=== PATIENT | female | born 1955 | race Caucasian/White ===

== ENCOUNTER → 2024-04-16 | Outpatient (CLI) | payer MEDICARE, SELFPAY ==
--- NOTE | 2024-04-16 14:00 | XR_ITS ---
Examination: Breast ultrasound, unilateral, left Date and time of exam: April 16, 2024 1410 hours INDICATIONS: Breast sonogram April 25, 2023 left breast 4:00 mass 12 x 11 mm 6:00 mass 5 x 5 mm Technique: Real-time mcgowan scale ultrasonographic imaging performed left breast including all 4 quadrants as well as nipple retroareolar and axillary region. Findings: No cystic or solid mass on this study 2.0 cm axillary lymph node IMPRESSION: BI-RADS Category 2: Benign findings
== END | disposition home or self-care (01) ==
PROVIDERS: Referring Provider Physician Assistant; Visit Provider Physician Assistant
DX: N63.0 Unspecified lump in unspecified breast (principal)
CPT/HCPCS: 76641

== ENCOUNTER 2024-12-22 16:21 | Inpatient (IN) | payer MEDICARE, SELFPAY ==
[2024-12-22] VITALS (9 sets, daily range): BP systolic 158–186; BP diastolic 62–78; PULSE 50–78; RESP 12–21; TEMP 36.3–36.8; O2SAT 95–100; BMI 44.9
--- NOTE | 2024-12-22 17:10 | XR_ITS ---
EXAMINATION: AP chest single view TECHNIQUE: AP portable upright chest single view Date and time: December 22, 2024, 1755 hours, comparison March 01, 2020 INDICATIONS: Shortness of breath chest pain today. FINDINGS: Mild CHF Mild enlargement cardiac contour, prominent vascular congestion including central vascular engorgement, bilateral perihilar basilar edema Prominent osteopenia IMPRESSION: Mild CHF
--- NOTE | 2024-12-22 17:12 | PD.EDSOB ---
ED SOB =RME/HPI General Chief Complaint: Shortness of Breath/Dyspnea Stated Complaint: SOB Time Seen by Provider: 12/22/24 17:05 Arrival date/time: 12/22/24 16:21 69-year-old female patient came in for evaluation regarding shortness of breath. Patient's been having worsening shortness of breath, cough, for the last 4 days associated with worsening bilateral lower extremity swelling. Patient also complained of less urination. [place] She is on the brink of having dialysis. Patient denies any chest pain denies any abdominal pain denies any fever. Patient did her Lasix today. Related Data Home Medications ?Medication ?Instructions ?Recorded ?Confirmed amlodipine 5 mg tablet 5 tab PO QDAY High Blood Pressure 07/21/14 06/16/20 ##30 lisinopril 40 mg tablet 40 tab PO QDAY High Blood Pressure 07/21/14 06/16/20 ##30 metformin 1,000 mg tablet 1,000 tab PO BID Diabetes ##60 07/21/14 06/16/20 atenolol 25 mg tablet 25 mg PO QDAY 03/01/20 06/16/20 glipizide 10 mg tablet 10 mg PO BID 03/01/20 06/16/20 sitagliptin phosphate 100 mg 100 mg PO QDAY 03/01/20 06/16/20 tablet (Januvia) hydrochlorothiazide 25 mg tablet 25 mg PO QDAY 03/02/20 06/16/20 magnesium 500 mg tablet 500 mg PO BID 03/02/20 06/16/20 multivitamin 1 tab PO QDAY 03/02/20 06/16/20 L.acidophil-L.casei-B.bifid-B.longum-FOS 1 cap PO QDAY 06/13/20 06/16/20 2 billion cell-50 mg capsule (Probiotic Blend) atorvastatin 80 mg tablet 80 mg PO QPM 06/13/20 06/16/20 cinnamon bark 500 mg capsule 500 mg PO BID 06/13/20 06/16/20 (Cinnamon) loratadine 10 mg tablet 10 mg PO QDAY 06/13/20 06/16/20 Previous Rx's ?Medication ?Instructions ?Recorded aspirin 325 mg tablet 325 mg PO QDAY #30 tabs 06/14/20 Allergies Allergy/AdvReac Type Severity Reaction Status Date / Time No Known Allergies Allergy Verified 12/22/24 16:36 Review of Systems Review of Systems Narrative Review of Systems: Review of system reviewed and within normal limits except mentioned in HPI ED Exam Narrative Physical exam: VITAL SIGNS: Reviewed. GENERAL APPEARANCE: Alert and interactive, follows commands, no acute distress, HEAD AND FACE: Non-traumatic. ENT: PERRL, pink conjunctivitis, eyelid no trauma, Mucous membrane moist. NECK: Supple, nontender, no nuchal rigidity. CHEST: No tenderness, no crepitus, no paradoxical movement, no retractions. LUNGS: Clear, well ventilated, symmetric, no rales, no wheezing, no ronchi, no stridor, good breath sounds bilaterally. HEART: Regular rate, regular rhythm, no murmur, no gallops. ABDOMEN: Soft, positive bowel sounds, nondistended, no guarding, nontender, no rebound, no masses, RECTAL: Deferred. GENITAL: Deferred. NEUROLOGICAL: Gross motor function intact sensory function intact, Appropriate for age. MUSCULOSKELETAL: low back nontender, full range of motion. EXTREMITIES: Bilateral +2 edema lower extremity nontender, full range of motion. SKIN: Color pink, dry, no rash, no lacerations, no abrasions, no contusions. LYMPHATICS: Deferred. Course Quality Measures none Orders Category Date Time Status Bedside COVID-19 Antigen Test NOW Care 12/22/24 17:12 Active Bedside Influenza A&B Antigen Test NOW Care 12/22/24 17:12 Completed COVID-19 Screening Questionnaire NOW Care 12/22/24 19:38 Active Decision to Admit X1 Care 12/22/24 19:38 Active EKG (ED ONLY) *Do not use* NOW Care 12/22/24 17:11 Completed Straight [In and Out Catheter] X1 Care 12/22/24 17:10 Active Consult to Nephrology Stat Cons 12/22/24 18:50 Ordered EKG (ED Only) Stat Exams 12/22/24 17:11 Ordered XR chest 1V Stat Exams 12/22/24 17:10 Completed B-Type Natriuretic Peptide Stat Lab 12/22/24 17:17 Completed CBC Stat Lab 12/22/24 17:17 Completed Comprehensive Metabolic Panel Stat Lab 12/22/24 17:17 Completed Lactic Acid [Lactate (Lactic Acid)] Stat Lab 12/22/24 17:17 Completed Magnesium Stat Lab 12/22/24 17:17 Completed Partial Thromboplastin Time Stat Lab 12/22/24 17:17 Completed Prothrombin Time with INR Stat Lab 12/22/24 17:17 Completed Troponin I Stat Lab 12/22/24 17:17 Completed Urinalysis, C/S if Indicated Stat Lab 12/22/24 19:10 Completed Furosemide Inj [Lasix Inj] Med 12/22/24 18:49 Discontinued 40 mg IVP X1 ONE Vital Signs Vital signs: Vital Signs Temperature 97.4 F 12/22/24 16:23 Pulse Rate 51 L 12/22/24 16:23 Respiratory Rate 19 12/22/24 16:23 Blood Pressure 158/72 H 12/22/24 16:23 Pulse Oximetry (%) 95 12/22/24 16:23 Oxygen Delivery Method Room Air 12/22/24 16:23 Shortness of Breath / Dyspnea [facility] Narrative [facility] Narrative:: 12/22/24 16:21 69-year-old female patient came in for evaluation regarding shortness of breath. Patient's been having worsening shortness of breath, cough, for the last 4 days associated with worsening bilateral lower extremity swelling. Patient also complained of less urination. She is seen by dry cleaning attendant from [place], . She is on the brink of having dialysis. Patient denies any chest pain denies any abdominal pain denies any fever. Patient did her Lasix today. EKG shows sinus bradycardia, ventricular to 52 bpm, no ST segment elevation depression noted. Chest x-ray showed mild CHF. Patient's creatinine today was noted to be 3.2 BUN of 60. It was worse as compared to last time. Patient's sodium was noted to be 126 patient was given IV Lasix. BNP of 465. Case discussed with hospitalist, who admitted the patient. Patient data External records reviewed:: None Clinical information provided by:: patient Social determinants that could affect healthcare access:: none Patient has the following chronic illnesses:: CHF, CKD How is presenting disease/condition affected by chronic disease/condition?: exacerbated by Evaluation data The following diagnostics were reviewed and interpreted by me:: lab results, radiology exam(s) and EKG tracing(s) Lab and/or radiology exams considered but not ordered:: None Interpretation Summary: See MDM Medications / Prescriptions Medications or Prescriptions considered but not ordered:: None Medication administrations:: Medication Administration History Discontinued Medications Furosemide (Furosemide Inj 10 Mg/Ml 4ml Vial) 40 mg IVP X1 ONE Stop: 12/22/24 18:50 Last Admin: 12/22/24 19:12 Dose: 40 mg Documented By: CHRISTINE Pete IV Consultations Consultation(s) initiated? (list below): Yes Consultation #1 (Physician, Specialty, Details): I consulted Dr. Nuno, dry cleaning attendant, discussed the case, advised to give IV Lasix and admit Diagnosis Shortness of Breath Differential Diagnosis: acute exacerbation of chronic obstructive airways disease and congestive heart failure Most likely diagnosis given after review of the tests above:: Acute on chronic kidney disease, fluid overload Admission Indicated Admission indicated?: indicated Admission Request Was there a request for admission?: Yes Admission Attestation Admission request attestation: Discussed case with [Dr. Grier] from Hospitalist service regarding admission. Discussed patients ED course, exam findings, labs, and radiology results. The Hospitalist [agrees] to accept the patient for admission. Disposition Plan Disposition Plan: Admit Discharge Plan Plan Patient Disposition: Admit Acute Care w/in Hospital Discharge Disposition comment: Stable Prescriptions/Referrals Prescriptions/Med Rec: No Action amlodipine 5 mg Tablet 5 tab PO QDAY Qty: 30 metformin 1,000 mg Tablet 1,000 tab PO BID Qty: 60 lisinopril 40 MG tablet 40 tab PO QDAY Qty: 30 atorvastatin 80 mg Tablet 80 mg PO QPM cinnamon bark [Cinnamon] 500 mg Capsule 500 mg PO BID Probiotic Blend 2 billion cell-50 mg Capsule 1 cap PO QDAY loratadine 10 mg Tablet 10 mg PO QDAY aspirin 325 mg Tablet 325 mg PO QDAY Qty: 30 0RF glipizide 10 mg Tablet 10 mg PO BID atenolol 25 mg Tablet 25 mg PO QDAY Januvia 100 mg Tablet 100 mg PO QDAY multivitamin Tablet 1 tab PO QDAY magnesium 500 mg Tablet 500 mg PO BID hydrochlorothiazide 25 mg Tablet 25 mg PO QDAY Problem List Clinical Impression: Acute kidney injury superimposed on chronic kidney disease, Congestive heart failure Patient/Caregiver Discharge Instructions Print Language: Norwegian Stand Alone Forms: Amanda Award Info., Patient Portal Info Letter
[2024-12-22 17:24] LABS: Lactate (Lactic Acid) 1.1 mMol/L (0.4-2.0)
[2024-12-22 17:25] LABS: Basophils # (Auto) 0.1 Thou/mm3 (0.0-0.2); Basophils % (Auto) 1 % (0-2.5); Eosinophils # (Auto) 0.4 Thou/mm3 (0.0-0.5); Eosinophils % (Auto) 3 % (0-10); Hematocrit 31.3 % (36.0-46.0); Hemoglobin 10.9 g/dL (12.0-16.0); Immature Granulocytes Auto 0.11 Thou/mm3 (0.00-0.00); Lymphocytes # (Auto) 1.5 Thou/mm3 (1.0-4.8); Lymphocytes % (Auto) 12 % (10-50); Mean Corpuscular HGB Conc 34.8 g/dl (31.0-37.0); Mean Corpuscular Hemoglobin 28.5 pg (25.0-35.0); Mean Corpuscular Volume 82 fL (80-100); Monocytes # (Auto) 0.7 Thou/mm3 (0.0-0.8); Monocytes % (Auto) 5 % (0-12); Neutrophils # (Auto) 9.6 Thou/mm3 (1.8-7.7); Neutrophils % (Auto) 78 % (37-80); Nucleated Red Blood Cell # 0.00 Thou/mm3 (0.00-0.00); Nucleated Red Blood Cell % 0 /100 WBC (0); Platelet Count 301 Thou/mm3 (140-440); RDW Standard Deviation 43.7 fL (36.4-46.3); Red Blood Count 3.83 Miln/mm3 (4.00-5.20); White Blood Count 12.3 Thou/mm3 (3.6-11.0)
[2024-12-22 17:47] LABS: B-Type Natriuretic Peptide 465 pg/mL (0-100)
[2024-12-22 18:00] LABS: INR 1.0 (0.9-1.3); Partial Thromboplastin Time 33.8 Seconds (22.0-36.0); Prothrombin Time 11.1 Seconds (9.0-12.2)
[2024-12-22 18:41] LABS: Alanine Aminotransferase 14 U/L (10-49); Albumin, Serum 4.3 gm/dL (3.4-4.8); Albumin/Globulin Ratio 1.9 (1.2-2.2); Alkaline Phosphatase 53 U/L (46-116); Anion Gap 9 (7-16); Aspartate Amino Transferase 18 U/L (0-34); BUN/Creatinine Ratio 19 Ratio (12-20); Bilirubin,Total 0.9 mg/dL (0.3-1.2); Blood Urea Nitrogen 60 mg/dL (9-23); Calcium 9.0 mg/dL (8.3-10.6); Calcium (Corrected) 9.0 mg/dL (8.5-10.1); Carbon Dioxide 23.3 mMol/L (20.0-31.0); Chloride 94 mMol/L (98-107); Creatinine (Component) 3.2 mg/dL (0.6-1.3); Estimated Creatinine Clearance 17.6 mL/min (>60); Globulin 2.3 gm/dL (2.3-3.5); Glucose 310 mg/dL (74-106); Magnesium 2.4 mg/dL (1.6-2.6); Osmolality,Calculated 282 (275-295); Potassium 5.1 mMol/L (3.4-5.1); Sodium 126 mMol/L (136-145); Total Protein 6.6 gm/dL (5.7-8.2); Troponin I < 0.020 ng/mL (0.0-0.045); eGFR 15 See Note
[2024-12-22] MEDS: FUROSEMIDE INJ 10 MG/ML 4ML VIAL 40 MG IVP (19:12)
[2024-12-22 19:22] LABS: Collection Type, Urine Clean Catch
[2024-12-22 19:28] LABS: Bacteria,Urine 1+; Bilirubin,Urine Negative (Negative); Blood,Urine 1+ (Negative); Clarity,Urine Clear (Clear/Hazy); Color,Urine Lt-Yellow (Lt Yel-Yel); Culture Indicated,Urine Contaminated; Glucose, Urine 2+ (Negative); Ketones,Urine Negative (Negative); Leukocyte Esterase,Urine Negative (Negative); Nitrite,Urine Negative (Negative); PH,Urine 6.0 (5.0-7.0); Protein,Urine 2+ (Neg - Trace); RBC,Urine 13 /hpf (0-3); Specific Gravity,Urine 1.014 (1.001-1.035); Squamous Epithelial Cell,Urine 23 /hpf (0-5); Urobilinogen,Urine Negative mg/dL (0.0-1.0); WBC,Urine 2 /hpf (0-5)
--- NOTE | 2024-12-22 21:18 | ECHO_ITS ---
Patient Info Name: Farideh Dietrich Age: 69 years : 1955 Gender: Female Ht: 152 cm Wt: 104 kg BSA: 2.17 m2 BP: 135 / 87 mmHg HR: 58 bpm Exam Date: 12/23/2024 8:21 AM Admit Date: 12/22/2024 Site: [facility] Patient Status: I Exam Type: CA echo doppler complete Skilled Nursing Case Manager: Nadya Nixon Ordering Physician: Chace Torre Study Info Indications ?new onset CHF - Primary Location: [id number] Left Ventricular Outflow Tract Name Value Normal LVOT 2D LVOT Diameter 1.8 cm LVOT Doppler LVOT Peak Velocity 112 cm/s LVOT Mean Gradient 3 mmHg LVOT VTI 30 cm LVOT VTI/AV VTI Ratio 0.7 LVOT Stroke Volume 77 ml Pulmonic Valve Name Value Normal PV Doppler PV Peak Velocity 111 cm/s Mitral Valve Name Value Normal MV Doppler MV Decel Candler 1,035 cm/s2 MV PHT 36 ms MV Area (PHT) 6.2 cm2 4.0-5.0 MV Diastolic Function MV E Peak Velocity 128 cm/s MV A Peak Velocity 61 cm/s MV E/A 2.1 MV Annular TDI MV Septal e' Velocity 6.1 cm/s MV E/e' (Septal) 21.0 MV Lateral e' Velocity 8.9 cm/s MV E/e' (Lateral) 14.3 MV e' Average 7.51 cm/s MV E/e' (Average) 17.7 Tricuspid Valve Name Value Normal TV Regurgitation Doppler TR Peak Velocity 341 cm/s Estimated PAP/RSVP RA Pressure 3 mmHg <=5 PA Systolic Pressure 50 mmHg <36 RV Systolic Pressure 50 mmHg <36 TV Annular TDI TV Lateral Alexandra s' Velocity 15.9 cm/s >=9.5 Aortic Valve Name Value Normal AV 2D/MM AV Cusp Sep (MM) 1.1 cm AV Doppler AV Peak Velocity 165 cm/s AV Mean Gradient 5 mmHg AV VTI 41 cm AV Area (Cont Eq VTI) 1.9 cm2 >=3.0 AV Area (Cont Eq Fadi) 1.7 cm2 AV DI (Fadi) 0.68 AV Regurgitation 2D LVOT Area 2.5 cm2 Ventricles Name Value Normal LV Dimensions 2D/MM IVS Diastolic Thickness (2D) 0.7 cm 0.6-0.9 LVID Diastole (2D) 4.4 cm 3.8-5.2 LVIW Diastolic Thickness (2D) 1.0 cm 0.6-0.9 LVID Systole (2D) 2.7 cm 2.2-3.5 LVOT Diameter 1.8 cm LV Mass (2D Cubed) 118.58 g 67.00-162.00 LV Mass Index (2D Cubed) 55 g/m2 43-95 Relative Wall Thickness (2D) 0.45 <=0.42 IVS/LVIW Diastolic Thickness (2D) 0.70 0.00-1.50 LV Fractional Shortening/Ejection Fraction 2D/MM LV Fractional Shortening (2D) 39 % 27-45 LV EF (2D Teichholz) 69 % RV Dimensions 2D/MM TV Lateral Alexandra s' Velocity 15.9 cm/s >=9.5 Atria Name Value Normal LA Dimensions LA Volume (4C A-L) 64 ml LA Volume (BP A-L) 61 ml Left Ventricle Left ventricular chamber dimension is normal. Left ventricular systolic function is normal with visually estimated ejection fraction of 55-60%. There is concentric remodeling noted in the left ventricle. Left ventricular segmental wall motion is normal. There is normal diastolic function in the left ventricle. Right Ventricle Right ventricular chamber dimension is normal. Right ventricular systolic function is normal. Left Atrium Left atrial chamber dimension is mildly enlarged. Right Atrium Right atrial chamber dimension is normal. Aortic Valve The aortic valve is trileaflet. There is no aortic valve sclerosis. There is no aortic valve stenosis with a peak velocity of 165 cm/s, mean gradient of 5 mmHg, and aortic valve area of 1.9 cm2. There is no aortic valve regurgitation. Pulmonic Valve The pulmonic valve is normal. There is no pulmonic valve stenosis. There is no pulmonic regurgitation. Mitral Valve The mitral valve has normal leaflets. There is no mitral valve stenosis. There is trace mitral valve regurgitation. Tricuspid Valve The tricuspid valve leaflets are normal. There is no tricuspid valve stenosis. There is mild tricuspid valve regurgitation. Pulmonary hypertension, estimated pulmonary arterial systolic pressure is 50 mmHg and systemic blood pressure of 135 mmHg in systole. Pericardium/Pleural The pericardium appears normal. There is no pericardial effusion. No pleural effusion visualized. Inferior Vena Cava Normal inferior vena cava with >50% collapse upon inspiration consistent with normal right atrial pressure, 3 mmHg. Aorta The aortic measurements are indexed to age and body surface area. The aortic root at the sinus of Valsalva is not well visualized. The prox ascending aorta is not well visualized. Summary 1. Left ventricle size is normal and systolic function is normal. Estimated ejection fraction is 55-60%. There is normal diastolic function. 2. Right ventricle chamber size is normal and systolic function is normal. 3. There is trace mitral valve regurgitation. 4. There is mild tricuspid valve regurgitation. 5. Normal IVC with estimated RA pressure 3 mmHg. Report Signatures Finalized by Sorin Miller on 12/23/2024 11:54 AM
--- NOTE | 2024-12-22 21:33 | ESHP_ITS ---
<Statement entered by Maribeth Contrears MD - 12/23/24 06:40> Patient is 69 yr female with PMH of CKD stage IV, insulin-dependent type 2 diabetes mellitus, hyperlipidemia, hypertension presenting to ED due to worsening SOB and cough since past few days. She endorses orthopnea, sleeps at angle, worsening LE swelling as well. Has never seen fourdrinier wire weaver in the past. Follows with nephrology Dr. Will in [place] for monitoring of CKD. Has not needed dialysis as of yet. BP 186/78, HR 51, RR 16, O2 sat 97% on 2 L NC. WBC 12.3, hemoglobin 10.9, sodium 126 (corrected 131), potassium 5.1, BUN 60, creatinine 3.2, blood glucose 310, BNP 465, eGFR 15. Repeat UA negative. Chest x-ray showed mild CHF. ED consulted Dr. Nuno who recommended to start IV diuresis. Patient admitted for AHRF due to volume overload in setting of JETHRO on CKD vs new onset CHF. Continue IV diuresis, fluid restrict, strict INOs, echo pending. The patient's management plan was discussed with my attending physician Dr. Wynne. Maribeth Contreras, PGY-2 Documentation for date of: 12/22/24 HPI History of Present Illness History of present illness: 69-year-old female history of CKD stage IV, insulin-dependent type 2 diabetes mellitus, hyperlipidemia, hypertension, presents with worsening shortness of breath and cough over the past 4 days, associated with increased bilateral lower extremity swelling. She has been unable to lie flat and has been sleeping in a recliner for relief. The patient denies chest pain, abdominal pain, or fever. She has no history of asthma but uses an inhaler as needed for bronchitis, which provides minimal relief. Additionally, she reports decreased urine output and burning with urination. She has a history of recurrent urinary tract infections over the past year and has open pressure ulcers on her buttocks, which make urination difficult. The patient lives with her and grandson, with the grandson being sick for over a week. Patient follows up with Dr. Will, a carder blankets in [place], and was last seen 1.5 months ago. She is nearing the need for dialysis. She took her Lasix today but has not noticed significant improvement in her symptoms. ED course: Initial vitals include T 97.4, BP 186/78, HR 51, RR 16, O2 sat 97% on 2 L NC. WBC 12.3, hemoglobin 10.9, sodium 126 (sodium corrected for hyperglycemia 131), potassium 5.1, BUN 60, creatinine 3.2, blood glucose 310, BNP 465, eGFR 15. Repeat UA negative. Chest x-ray showed mild CHF. Past medical history: As stated above. Allergies: NKDA Family history: Noncontributory. Social history: No alcohol use, no smoking, no illicit drug use. Patient admitted for possible new diagnosis of CHF, and JETHRO on CKD. Review of Systems Review of Systems Narrative Review of Systems: All systems reviewed negative unless stated otherwise above. Exam Vital Signs Temp Pulse Resp BP Pulse Ox O2 Del Method O2 Flow Rate 97.5 F 50 L 14 179/62 H 96 Nasal Cannula 3 12/22/24 20:15 12/22/24 20:15 12/22/24 20:15 12/22/24 20:15 12/22/24 20:15 12/22/24 20:15 12/22/24 20:15 Narrative Exam General: AOx3, no acute distress, able to speak full sentences, British-speaking HEENT: NC/AT, mucous membranes moist, bilateral sclera anicteric Cardiovascular: regular rate and rhythm, S1/S2 present, no murmurs appreciated Pulmonary: decreased air entry bilaterally, bilateral wheezes heard Abdominal: soft, non-tender, non-distended, no rebound/guarding, normal bowel sounds present Musculoskeletal: normal ROM, bilateral peripheral pitting edema 2+ up to knees Skin: warm and dry, intact, no rashes, Neuro: CN II-XII intact, no focal deficits Results: Labs 12/23/24 05:25 12/23/24 05:25 Labs: Short CBC 12/22/24 Range/Units 17:17 WBC 12.3 H (3.6-11.0) Thou/mm3 Hgb 10.9 L (12.0-16.0) g/dL Hct 31.3 L (36.0-46.0) % Plt Count 301 (140-440) Thou/mm3 BMP 12/22/24 17:17 Sodium 126 L Potassium 5.1 Chloride 94 L Carbon Dioxide 23.3 BUN 60 H Creatinine 3.2 H Glucose 310 H Calcium 9.0 Cardiac Enzymes 12/22/24 Range/Units 17:17 Troponin I < 0.020 (0.0-0.045) ng/mL Liver Function 12/22/24 Range/Units 17:17 Total Bilirubin 0.9 (0.3-1.2) mg/dL AST 18 (0-34) U/L ALT 14 (10-49) U/L Alkaline Phosphatase 53 (46-116) U/L Albumin 4.3 (3.4-4.8) gm/dL Urine 12/22/24 Range/Units 19:10 Urine Color Lt-Yellow (Lt Yel-Yel) Urine Clarity Clear (Clear/Hazy) Urine pH 6.0 (5.0-7.0) Ur Specific [place] 1.014 (1.001-1.035) Urine Protein 2+ A (Neg - Trace) Urine Glucose (UA) 2+ A (Negative) Quality Measures Quality Measures VTE prophylaxis Advance care planning discussed with:: patient Medications Home Medications and Allergies Home Medications ?Medication ?Instructions ?Recorded ?Confirmed ?Type amlodipine 5 mg tablet 10 mg PO QDAY High Blood Pre ssure 07/21/14 12/23/24 History ##30 atenolol 25 mg tablet 25 mg PO QDAY 03/01/2012/23 History glipizide 10 mg tablet 10 mg PO BID 03/01/20 History sitagliptin phosphate 100 mg 100 mg PO QDAY 03/01/20 1 02/23/24 History tablet (Januvia) atorvastatin 80 mg tablet 80 mg PO QPM 06/13/20 History cinnamon bark 500 mg capsule 500 mg PO BID 06/13/20 History (Cinnamon) cetirizine 10 mg tablet (24Hour 10 mg PO QDAY PRN yudi rgy symptoms 12/23/24 12/23/24 History Allergy) furosemide 40 mg tablet (Lasix) 40 mg PO QAM 12/23/24 12/23/24 History insulin glargine 100 unit/mL (3 20 unit subcut QPM 12/23/24 History mL) subcutaneous pen (Lantus Solostar U-100 Insulin) valsartan 80 mg tablet 80 mg PO PRN 12/23/24 History Allergies Allergy/AdvReac Type Severity Reaction Status Date / Time No Known Allergies Allergy Verified 12/22/24 16:36 Visit Medications Acetaminophen (Acetaminophen 325 Mg Tablet) 650 mg PO Q6H PRN PRN Reason: PAIN 1- 10 OR FEVER > 100.4 Stop: 01/21/25 21:17 Albuterol/Ipratropium (Albuterol/Ipratropium (Duoneb) Rt Robina 3 Ml Nebu) 3 ml INH Q4HRRT YOU Stop: 01/21/25 22:59 Furosemide (Furosemide Inj 10 Mg/Ml Vial 2 Ml) 40 mg IVP TID YOU Stop: 01/22/25 05:59 Heparin Sodium (Porcine) (Heparin Sod Inj 5000 Unit/Ml Vial) 5,000 unit SC Q8HR YOU Stop: 01/05/25 21:59 Ondansetron HCl (Ondansetron Inj 2 Mg/Ml Inj 2 Ml) 4 mg IVP Q6H PRN; Protocol PRN Reason: NAUSEA OR VOMITING Stop: 01/21/25 21:17 Discontinued Medications Albuterol/Ipratropium (Albuterol/Ipratropium (Duoneb) Rt Robina 3 Ml Nebu) 3 ml INH X1 ONE Stop: 12/22/24 21:14 Furosemide (Furosemide Inj 10 Mg/Ml 4ml Vial) 40 mg IVP X1 ONE Stop: 12/22/24 18:50 Last Admin: 12/22/24 19:12 Dose: 40 mg Furosemide (Furosemide Inj 10 Mg/Ml 4ml Vial) 80 mg IVP X1 ONE Stop: 12/22/24 21:10 Assessment & Plan Plan 69-year-old female history of CKD stage IV, insulin-dependent type 2 diabetes mellitus, hyperlipidemia, hypertension, presents with worsening shortness of breath and cough over the past 4 days, associated with increased bilateral lower extremity swelling. Patient admitted for possible new diagnosis of CHF, and JETHRO on CKD. #Acute hypoxemic respiratory failure In the setting of fluid overload, JETHRO on CKD versus new diagnosis of CHF Currently on 2 L of oxygen and saturating at 100% Plan ? Continue Lasix ? DuoNebs scheduled ? Supp O2 as needed #Possible new diagnosis of CHF Worsening shortness of breath and cough over the past 4 days, associated with increased bilateral lower extremity swelling. She has been unable to lie flat and has been sleeping in a recliner for relief. Mentions with being heavy however has not measured herself BNP 465 2+ bilateral lower extremity pitting edema up to knees Chest x-ray shows mild CHF In ED patient received Lasix 120 mg IV Plan ? Echo ordered ? Lasix 40 mg IV twice daily ? Strict ROBBIE's ? Daily weights ? Fluid restriction 1.8 L #Hypertensive emergency #History of hypertension Highest blood pressure reading 186/78 According to patient takes at least 3 blood pressure medications, mentions taking valsartan and atenolol but cannot remember others Plan ? Hydralazine as needed ? Pending med recon, restart BP meds as appropriate ? Hold atenolol, consider alternative #JETHRO on CKD #History of CKD, stage IV DDx prerenal (CHF) versus intrarenal (ATN due to diabetes) versus postrenal (obstruction) Patient sees Dr. Will, a carder blankets in [place], and was last seen 1.5 months ago. She is nearing the need for dialysis, however not there yet Patient is making urine Creatinine on admission 3.2, unsure what the baseline is eGFR 15 Plan ? Nephrology consulted by ED provider, Dr. Nuno, see recs ? Renal ultrasound ordered ? Avoid nephrotoxic agent ? Renally dose medications #Hyponatremia, mild Asymptomatic Na 131 (sodium corrected for hyperglycemia) Plan ? Sodium with a.m. lab #Sinus bradycardia EKG showed sinus bradycardia, rate 51 bpm Patient at home takes atenolol for blood pressure control Plan ? Hold atenolol as not an appropriate medication for the patient #Type 2 diabetes mellitus, [id number] According to patient takes Lantus, Januvia, glipizide Plan ? Pending med recon ? Insulin sliding scale ? A1c level ordered #Hyperlipidemia Mentions taking atorvastatin at home Plan ? 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 Emphasized importance of urgently getting evaluated in the outpatient setting Health Maintenance: Diet: Low carb consistent diet, fluid restriction 1.8 L, low protein, cardiac diet GI prophylaxis: None DVT prophylaxis: Heparin 5000 units SC every 8 hours Antibiotics: None CODE STATUS: DNR Disposition: Telemetry Case discussed with my attending Dr. Wynne, and senior resident, Dr. Diane Torre MD PGY-1 Attending Provider Attestation/Addendum After examination of the patient and review of the clinical data I feel that this patient needs admission to the hospital for further treatment/evaluation. Plan of care discussed with patient and is in agreement. I Stephane Wynne MD, attest that I was physically present for miguel portions of evaluation, and examined patient, labs and imagings and plan of care were discussed with IM residents team, and I agree with the findings and plans documented above.
[2024-12-22] MEDS: ALBUTEROL/IPRATROPIUM (Duoneb) RT SOL 3 ML NEBU INH ×2 (21:35→23:31)
[2024-12-22] MEDS: FUROSEMIDE INJ 10 MG/ML 4ML VIAL 80 MG IVP (21:50)
[2024-12-22 22:00] LABS: Collection Type, Urine Catheter
[2024-12-22 22:12] LABS: Bilirubin,Urine Negative (Negative); Blood,Urine Trace (Negative); Clarity,Urine Clear (Clear/Hazy); Color,Urine Colorless (Lt Yel-Yel); Glucose, Urine Negative (Negative); Ketones,Urine Negative (Negative); Leukocyte Esterase,Urine Negative (Negative); Nitrite,Urine Negative (Negative); PH,Urine 5.5 (5.0-7.0); Protein,Urine 1+ (Neg - Trace); RBC,Urine < 1 /hpf (0-3); Specific Gravity,Urine 1.005 (1.001-1.035); Squamous Epithelial Cell,Urine 1 /hpf (0-5); Urobilinogen,Urine Negative mg/dL (0.0-1.0); WBC,Urine < 1 /hpf (0-5)
[2024-12-22] MEDS: HEPARIN SOD INJ 5000 UNIT/ML VIAL SC (22:12)
[2024-12-23] VITALS (14 sets, daily range): BP systolic 135–162; BP diastolic 52–87; PULSE 52–63; RESP 11–20; TEMP 36.4–36.8; O2SAT 91–98; BMI 48.7; BMI 48.9; BMI 13.0
--- NOTE | 2024-12-23 00:17 | XR_ITS ---
Examination: Retroperitoneal ultrasound, complete Technique: Multiple high resolution grayscale images of the retroperitoneum obtained, including kidneys and bladder. Exam date and time: December 23, 2024, 0123 hours INDICATIONS: Diagnosis acute renal insufficiency on chronic kidney disease on laboratory examination today FINDINGS: Right kidney 7.7 cm renal cortex 1.5 cm Significant renal scar formation Poor visualization of the kidney No diagnostic visualization left kidney Contracted urinary bladder IMPRESSION: Patient's size limits the quality of this study Small right kidney is visualized with significant renal scar formation, no right hydronephrosis
--- NOTE | 2024-12-23 02:17 | PRELIM_ITS ---
Renal/Retroperitoneal ultrasound. December 23, 2024 at 0123 hours Clinical history: JETHRO on CKD. Comparison: None. Findings: The evaluation is markedly limited due to bowel gas and movements as per technologist's note. Right: The right kidney measures 7.7 x 5.9 x 3.7 cm and demonstrates lobular contour with parenchymal scarring. There is no hydronephrosis or renal calculus. Left: The left kidney is not well visualized/demonstrated due to bowel movements as per technologist's note. The urinary bladder is unremarkable. The ureteric jets are not visualized. Prevoid urinary bladder volume measures 55 mL. Impression: Markedly limited evaluation as described. 1. No definitive evidence of right sided hydronephrosis, to the extent visualized. 2. Left kidney not well visualized, due to technical limitation. 3. Other findings as described above. Suggest clinical correlation and follow up accordingly. Report Electronically Signed By: Enmanuel Curtis 12/23/2024 2:16:08 AM [EST]
--- NOTE | 2024-12-23 04:45 | PC.NURSE ---
Attempted to reconcile pt's home medications but pt noted that spouse took the list home. Informed pt that we require the list to update profile and if possible to have spouse bring back to the hospital. Pt noted she would contact her later this morning.
[2024-12-23] MEDS: HEPARIN SOD INJ 5000 UNIT/ML VIAL SC ×3 (05:20→21:50)
[2024-12-23 05:39] LABS: Basophils # (Auto) 0.1 Thou/mm3 (0.0-0.2); Basophils % (Auto) 1 % (0-2.5); Eosinophils # (Auto) 0.5 Thou/mm3 (0.0-0.5); Eosinophils % (Auto) 5 % (0-10); Hematocrit 30.6 % (36.0-46.0); Hemoglobin 10.4 g/dL (12.0-16.0); Immature Granulocytes Auto 0.12 Thou/mm3 (0.00-0.00); Lymphocytes # (Auto) 1.4 Thou/mm3 (1.0-4.8); Lymphocytes % (Auto) 13 % (10-50); Mean Corpuscular HGB Conc 34.0 g/dl (31.0-37.0); Mean Corpuscular Hemoglobin 28.3 pg (25.0-35.0); Mean Corpuscular Volume 83 fL (80-100); Monocytes # (Auto) 0.6 Thou/mm3 (0.0-0.8); Monocytes % (Auto) 6 % (0-12); Neutrophils # (Auto) 7.9 Thou/mm3 (1.8-7.7); Neutrophils % (Auto) 75 % (37-80); Nucleated Red Blood Cell # 0.00 Thou/mm3 (0.00-0.00); Nucleated Red Blood Cell % 0 /100 WBC (0); Platelet Count 293 Thou/mm3 (140-440); RDW Standard Deviation 44.7 fL (36.4-46.3); Red Blood Count 3.68 Miln/mm3 (4.00-5.20); White Blood Count 10.6 Thou/mm3 (3.6-11.0)
[2024-12-23 05:59] LABS: Glucose Estimated Average 163 mg/dL (80-131); Hemoglobin A1C 7.3 % Hgb (4.8-6.0)
[2024-12-23 06:05] LABS: Anion Gap 8 (7-16); BUN/Creatinine Ratio 19 Ratio (12-20); Blood Urea Nitrogen 54 mg/dL (9-23); Calcium 8.8 mg/dL (8.3-10.6); Carbon Dioxide 25.0 mMol/L (20.0-31.0); Chloride 97 mMol/L (98-107); Creatinine (Component) 2.9 mg/dL (0.6-1.3); Estimated Creatinine Clearance 20.4 mL/min (>60); Glucose 311 mg/dL (74-106); Magnesium 2.2 mg/dL (1.6-2.6); Osmolality,Calculated 287 (275-295); Phosphorous 4.7 mg/dL (2.4-5.1); Potassium 4.8 mMol/L (3.4-5.1); Sodium 130 mMol/L (136-145); Thyroid Stimulating Hormone 3.97 uIU/mL (0.55-4.78); eGFR 17 See Note
[2024-12-23] MEDS: INSULIN LISPRO (AdmeLOG) 1 UNIT/0.01 ML UNIT SC ×2 (07:27→11:28)
[2024-12-23] MEDS: ALBUTEROL/IPRATROPIUM (Duoneb) RT SOL 3 ML NEBU INH ×2 (07:54→13:25)
[2024-12-23] MEDS: FUROSEMIDE INJ 10 MG/ML VIAL 2 ML 40 MG IVP (08:12)
[2024-12-23] MEDS: BUMETANIDE INJ 20 MG in CONTAINER,EMPTY 50 ML 1 BAG 8 MG IV (08:58)
--- NOTE | 2024-12-23 10:43 | ESPR_ITS ---
<Statement entered by Jeremías Crowell MD - 12/24/24 18:03> Patient seen and examined at bedside. I discussed and supervised with the manager international physician who took care of this patient. I personally saw and examined the patient. I agree with most of the assessment and plan. Plan of care discussed with attending Dr. Goff. Jeremías Crowell MD PGY-2 Documentation for date of: 12/23/24 Subjective Subjective Interval history: 68-year-old female with past medical history of CKD stage IV, insulin-dependent type 2 diabetes, hyperlipidemia, hypertension presented with worsening shortness of breath, cough, bilateral lower extremity swelling x 4 days.? Admitted for AHRF secondary to volume overload, new onset CHF, JETHRO on CKD. Patient reported trying to go to bathroom and did not make it due to shortness of breath. Admitted orthopnea, sleeping in a recliner.? Denies chest pain, abdominal pain, fever.? Reported decreased urine output and burning with urination, feeling corrosive, thinking it's her glucose that causes that.? History of recurrent UTI over the past year.? Took Lasix prior to admission but no significant improvement. Strawhat Blocking Operator, Yoshi Pinon, following for CKD, potential need for dialysis soon.? Last visit 1.5 months ago. On home Lasix. Never seen patcher. ED: Labs creatinine 3.2 BUN 68 GFR 15 worse compared to last time.? Na 126 K 5.1 BNP 465 BG 310 UA negative Consulted bullet casting operator, tito Gupta to start IV diuretics. Was initially started on Lasix 40mg IV BID then changed to Bumex 20mg gtt. Exam Vital Signs Temp Pulse Resp BP Pulse Ox O2 Del Method O2 Flow Rate 97.9 F 57 L 18 156/77 H 96 Nasal Cannula 4 12/23/24 08:00 12/23/24 08:12 12/23/24 08:00 12/23/24 08:12 12/23/24 08:00 12/23/24 08:00 12/23/24 08:00 Narrative Exam General: AOx3, no acute distress, able to speak full sentences, Mongolian-speaking HEENT: NC/AT, mucous membranes moist, bilateral sclera anicteric Cardiovascular: regular rate and rhythm, S1/S2 present, no murmurs appreciated Pulmonary: minimal bilateral wheezes heard Abdominal: soft, non-tender, non-distended, no rebound/guarding, normal bowel sounds present Musculoskeletal: normal ROM, bilateral peripheral pitting edema 2+ up to knees Skin: warm and dry, intact, no rashes, Neuro: CN II-XII intact, no focal deficits Objective Labs 12/27/24 04:20 12/27/24 04:20 Labs: Laboratory Results - last 24 hr 12/22/24 12/22/24 12/22/24 17:17 19:10 21:55 WBC 12.3 H RBC 3.83 L Hgb 10.9 L Hct 31.3 L MCV 82 MCH 28.5 MCHC 34.8 RDW Std Deviation 43.7 Plt Count 301 Neut % (Auto) 78 Lymph % (Auto) 12 Vance % (Auto) 5 Eos % (Auto) 3 Baso % (Auto) 1 Neut # (Auto) 9.6 H Lymph # (Auto) 1.5 Vance # (Auto) 0.7 Eos # (Auto) 0.4 Baso # (Auto) 0.1 Immature Gran # (Auto) 0.11 H Absolute Nucleated RBC 0.00 Immature Gran % 1 H Nucleated RBC % 0 PT 11.1 INR 1.0 APTT 33.8 Sodium 126 L Potassium 5.1 Chloride 94 L Carbon Dioxide 23.3 Anion Gap 9 BUN 60 H Creatinine 3.2 H Estim Creat Clear Calc 17.6 L eGFR 15 L BUN/Creatinine Ratio [address] Glu mg/dL Hemoglobin A1c Calculated Osmolality 282 Lactic Acid 1.1 Calcium 9.0 Corrected Calcium 9.0 Phosphorus Magnesium 2.4 Total Bilirubin 0.9 AST 18 ALT 14 Alkaline Phosphatase 53 Troponin I < 0.020 B-Natriuretic Peptide 465 H* Total Protein 6.6 Albumin 4.3 Globulin 2.3 Albumin/Globulin Ratio 1.9 TSH Ur Collection Type Clean Catch Catheter Urine Color Lt-Yellow Colorless A Urine Clarity Clear Clear Urine pH 6.0 5.5 Ur Specific [place] 1.014 1.005 Urine Protein 2+ A 1+ A Urine Glucose (UA) 2+ A Negative Urine Ketones Negative Negative Urine Blood 1+ A Trace Urine Nitrite Negative Negative Urine Bilirubin Negative Negative Urine Urobilinogen (Auto) Negative Negative Ur Leukocyte Esterase Negative Negative Urine RBC 13 H < 1 Urine WBC 2 < 1 Ur Squamous Epith Cells 23 H 1 Urine Bacteria 1+ A None Ur Culture Indicated? Contaminated 12/23/24 05:25 WBC 10.6 RBC 3.68 L Hgb 10.4 L Hct 30.6 L MCV 83 MCH 28.3 MCHC 34.0 RDW Std Deviation 44.7 Plt Count 293 Neut % (Auto) 75 Lymph % (Auto) 13 Vance % (Auto) 6 Eos % (Auto) 5 Baso % (Auto) 1 Neut # (Auto) 7.9 H Lymph # (Auto) 1.4 Vance # (Auto) 0.6 Eos # (Auto) 0.5 Baso # (Auto) 0.1 Immature Gran # (Auto) 0.12 H Absolute Nucleated RBC 0.00 Immature Gran % 1 H Nucleated RBC % 0 PT INR APTT Sodium 130 L Potassium 4.8 Chloride 97 L Carbon Dioxide 25.0 Anion Gap 8 BUN 54 H Creatinine 2.9 H Estim Creat Clear Calc 20.4 L eGFR 17 L BUN/Creatinine Ratio 19 Glucose [address] Glu mg/dL 163 H Hemoglobin A1c 7.3 H Calculated Osmolality 287 Lactic Acid Calcium 8.8 Corrected Calcium Phosphorus 4.7 Magnesium 2.2 Total Bilirubin AST ALT Alkaline Phosphatase Troponin I B-Natriuretic Peptide Total Protein Albumin Globulin Albumin/Globulin Ratio TSH 3.97 Ur Collection Type Urine Color Urine Clarity Urine pH Ur Specific [place] Urine Protein Urine Glucose (UA) Urine Ketones Urine Blood Urine Nitrite Urine Bilirubin Urine Urobilinogen (Auto) Ur Leukocyte Esterase Urine RBC Urine WBC Ur Squamous Epith Cells Urine Bacteria Ur Culture Indicated? Quality Measures Quality Measures VTE prophylaxis Advance care planning discussed with:: patient Assessment & Plan Assessment Current Active Medications: Generic Name Dose Route Start Last Admin Trade Name Freq PRN Reason Stop Dose Admin Acetaminophen 650 mg 12/22/24 21:18 Acetaminophen 325 Mg Tablet PO 01/21/25 21:17 Q6H PRN PAIN 1- 10 OR FEVER > 100.4 Albuterol/Ipratropium 3 ml 12/23/24 06:00 Albuterol/Ipratropium (Duoneb) Rt Robina 3 Ml Nebu INH 01/22/25 05:59 TID YOU Dextrose 25 ml 12/22/24 22:20 Dextrose 50%-Water Inj 50 Ml Syringe IV 01/21/25 22:19 Q15MIN PRN BG 50-70 responsive npo pt Dextrose 50 ml 12/22/24 22:20 Dextrose 50%-Water Inj 50 Ml Syringe IV 01/21/25 22:19 Q15MIN PRN BG <50 OR BG <70 & pt unresponsive Glucagon 1 mg 12/22/24 22:20 Glucagon Inj 1 Mg Vial IM Q15MIN PRN BG <70, and no IV access Heparin Sodium (Porcine) 5,000 unit 12/22/24 22:00 12/23/24 05:20 Heparin Sod Inj 5000 Unit/Ml Vial SC 01/05/25 21:59 5,000 unit Q8HR YOU Administration Hydralazine HCl 10 mg 12/22/24 23:59 Hydralazine Inj 20 Mg/Ml Vial IVP 01/21/25 23:58 Q4H PRN SBP >180 or DBP >120 Bumetanide 20 mg/ IV 80 mls @ 8 mls/hr 12/23/24 08:01 12/23/24 08:58 Miscellaneous Supplies IV 12/23/24 18:00 2 mg/hr .Q10H YOU 8 mls/hr 2 MG/HR Administration Insulin Degludec 20 unit 12/24/24 09:00 Insulin Degludec 5 Unit/0.05 Ml (Per 5 Units) DC 01/23/25 08:59 QDAY [facility] Insulin Human Lispro 0 unit 12/23/24 10:35 Insulin Lispro (Admelog) 1 Unit/0.01 Ml Unit DC 01/22/25 07:29 [facility] Protocol Insulin Human Lispro 7 unit 12/23/24 11:30 Insulin Lispro (Admelog) 1 Unit/0.01 Ml Unit DC 01/22/25 11:29 AC [facility] Ondansetron HCl 4 mg 12/22/24 21:18 Ondansetron Inj 2 Mg/Ml Inj 2 Ml IVP 01/21/25 21:17 Q6H PRN NAUSEA OR VOMITING Protocol Plan 69-year-old female history of CKD stage IV, insulin-dependent type 2 diabetes mellitus, hyperlipidemia, hypertension, presents with worsening shortness of breath and cough over the past 4 days, associated with increased bilateral lower extremity swelling. Patient admitted for possible new diagnosis of CHF, and JETHRO on CKD. #Acute hypoxemic respiratory failure, likely secondary to volume overload In the setting of fluid overload, JETHRO on CKD versus new diagnosis of CHF. Currently on 4 L of oxygen and saturating at 93%. CXR showed mild CHF. Bilateral peripheral pitting edema 2+ up to knees Echo showed LVEF 55-60%. Renal ultrasound showed significant right renal scar, no hydronephrosis Plan ? Discontinue Lasix ? Continue Bumex 20mg gtt ? Consult Strawhat Blocking Operator, Dr. Nuno, appreciate ongoing recs ? DuoNebs PRN ? Supp O2 as needed #Possible new diagnosis of CHF Worsening shortness of breath and cough over the past 4 days, associated with increased bilateral lower extremity swelling. She has been unable to lie flat and has been sleeping in a recliner for relief. Mentions with being heavy however has not measured herself. BNP 465 2+ bilateral lower extremity pitting edema up to knees. Chest x-ray shows mild CHF. In ED patient received Lasix 120 mg IV. Echo showed LVEF 55-60%. Renal ultrasound showed significant right renal scar, no hydronephrosis Plan ? Discontinue Lasix ? Continue Bumex 20mg gtt ? Consult Strawhat Blocking Operator, Dr. Nuno, appreciate ongoing recs ? Strict ROBBIE's ? Daily weights ? Fluid restriction 1.8 L ? Consult Jazz Singer, Dr. Miller, appreciate recs #Hypertensive urgency #History of hypertension Highest blood pressure reading 186/78. According to patient takes at least 3 blood pressure medications, mentions taking valsartan and atenolol but cannot remember others. Pending official med recs. 12/23 BP 135/87 Plan ? Hydralazine as needed ? Pending med recon, restart BP meds as appropriate #JETHRO on CKD - improving #History of CKD, stage IV DDx prerenal (CHF) versus intrarenal (ATN due to diabetes) versus postrenal (obstruction) Patient sees Dr. Will, a bullet casting operator in [place], and was last seen 1.5 months ago. She is nearing the need for dialysis, however not there yet. Patient is making urine Creatinine on admission 3.2, unsure what the baseline is. eGFR 15 Echo showed LVEF 55-60%. Renal ultrasound showed significant right renal scar, no hydronephrosis 12/23: BUN and creatinine improving with fluid Plan ? Nephrology consulted by ED provider, Dr. Nuno, see recs ? Avoid nephrotoxic agent ? Renally dose medications #Hyponatremia, mild - improving Asymptomatic Na 131 (sodium corrected for hyperglycemia) Plan ? Sodium with a.m. lab #Sinus bradycardia EKG showed sinus bradycardia, rate 51 bpm Patient at home takes atenolol for blood pressure control Plan ? Hold atenolol as not an appropriate medication for the patient #Type 2 diabetes mellitus, [id number] According to patient takes Lantus, Januvia, glipizide.? A1c 7.3.? Blood glucose on admission 310 12/23: Blood glucose 311, receive 3 units insulin lispro at 7:30 AM Plan ? Pending med recon ? Insulin sliding scale #Hyperlipidemia Mentions taking atorvastatin at home Plan ? 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 Emphasized importance of urgently getting evaluated in the outpatient setting Health Maintenance: Diet: Low carb consistent diet, fluid restriction 1.8 L, low protein, cardiac diet GI prophylaxis: None DVT prophylaxis: Heparin 5000 units SC every 8 hours Antibiotics: None CODE STATUS: DNR Disposition: Telemetry Assessment and plan discussed with my attending physician Dr. Goff and Dr. Crowell (PGY-2). Dr. Oropeza (PGY-1) ? residential real estate appraiser Attending Provider Attestation/Addendum I have seen and examined the patient. I was physically present for the miguel portions of the services provided including history, physical exam, diagnosis, treatment plans and orders. I agree with assessment and plan of care as documented by residents. Even though this this note was carefully revised there may still be minor errors in register in chancery due to voice recognition software. Heather Goff MD
[2024-12-23] MEDS: INSULIN LISPRO (AdmeLOG) 1 UNIT/0.01 ML UNIT 7 UNIT SC ×2 (11:27→16:42)
[2024-12-23] MEDS: INSULIN DEGLUDEC 5 UNIT/0.05 ML (PER 5 UNITS) 20 UNIT SC (11:28)
--- NOTE | 2024-12-23 13:59 | PD.RESCONSUL ---
HPI Data of Consult Consult date: 12/23/24 Requesting Physician: Heather Goff MD Admitting Provider: Stephane Wynne MD Attending Provider: Heather Goff MD Primary Care Provider: Physician No Primary/Family Consult Narrative Reason for consult: JETHRO on CKDIV History of present illness: 69-year-old female history of CKD stage IV, insulin-dependent type 2 diabetes mellitus, hyperlipidemia, hypertension, presents with worsening shortness of breath and cough over the past 4 days, associated with increased bilateral lower extremity swelling. She has been unable to lie flat and has been sleeping in a recliner for relief. The patient denies chest pain, abdominal pain, or fever. She has no history of asthma but uses an inhaler as needed for bronchitis, which provides minimal relief. Additionally, she reports decreased urine output and burning with urination. She has a history of recurrent urinary tract infections over the past year and has open pressure ulcers on her buttocks, which make urination difficult. The patient lives with her and grandson, with the grandson being sick for over a week. Patient follows up with Dr. Will, a oracle financials developer in [place], and was last seen 1.5 months ago. She is nearing the need for dialysis. She took her Lasix today but has not noticed significant improvement in her symptoms. 12/23/24: Patient seen and examined at bedside. Patient reports discussion with oracle financials developer regarding possible dialysis. Has little support at home with busy grandchildren and with dementia and may have difficulty travelling to HD 3x/wk. At baseline walks using nearby structures to grab onto, has walker but does not use. Patient reports increased leg swelling, shortness of breath and abdominal distension prior to admission with decreased urine output and dysuria. Plan for Bumex drip 2 mg/hr for 10 hrs. Strict I&Os with coulter as burning on urination likely 2/2 minor buttock wounds as UA clean. Likely progressive CKD from HTN and DM to possible ESRD vs cardiorenal. cc:: cc: Heather Goff MD Review of Systems Review of Systems Systems Reviewed: All systems reviewed, normal except as documented Exam Vital Signs Temp Pulse Resp BP Pulse Ox O2 Del Method O2 Flow Rate 97.6 F 57 L 20 151/69 H 98 Nasal Cannula 2 12/23/24 11:47 12/23/24 13:25 12/23/24 13:25 12/23/24 11:47 12/23/24 13:25 12/23/24 11:47 12/23/24 13:25 Narrative Exam GENERAL: AOx3, no acute distress, sitting upright comfortably eating breakfast HEENT: mucous membranes moist, bilateral sclera anicteric CARDIOVASCULAR: regular rate and rhythm, S1/S2 present, no murmurs appreciated PULMONARY: mildly decreased breath sounds bilaterally ABDOMINAL: soft, non-tender, distended, edematous, no rebound/guarding, bowel sounds present EXTREMITIES: 3+ BLE pitting edema SKIN: warm and dry NEURO: CN II-XII grossly intact, no focal deficits, alert, following commands Results Labs 12/24/24 05:52 12/24/24 05:52 Labs: Short CBC 12/22/24 12/23/24 Range/Units 17:17 05:25 WBC 12.3 H 10.6 (3.6-11.0) Thou/mm3 Hgb 10.9 L 10.4 L (12.0-16.0) g/dL Hct 31.3 L 30.6 L (36.0-46.0) % Plt Count 301 293 (140-440) Thou/mm3 BMP 12/22/24 12/23/24 17:17 05:25 Sodium 126 L 130 L Potassium 5.1 4.8 Chloride 94 L 97 L Carbon Dioxide 23.3 25.0 BUN 60 H 54 H Creatinine 3.2 H 2.9 H Glucose 310 H 311 H Calcium 9.0 8.8 Cardiac Enzymes 12/22/24 Range/Units 17:17 Troponin I < 0.020 (0.0-0.045) ng/mL Liver Function 12/22/24 Range/Units 17:17 Total Bilirubin 0.9 (0.3-1.2) mg/dL AST 18 (0-34) U/L ALT 14 (10-49) U/L Alkaline Phosphatase 53 (46-116) U/L Albumin 4.3 (3.4-4.8) gm/dL Urine 12/22/24 12/22/24 Range/Units 19:10 21:55 Urine Color Lt-Yellow Colorless A (Lt Yel-Yel) Urine Clarity Clear Clear (Clear/Hazy) Urine pH 6.0 5.5 (5.0-7.0) Ur Specific [place] 1.014 1.005 (1.001-1.035) Urine Protein 2+ A 1+ A (Neg - Trace) Urine Glucose (UA) 2+ A Negative (Negative) Quality Measures Quality Measures VTE prophylaxis Advance care planning discussed with:: patient Medications Home Medications and Allergies Home Medications ?Medication ?Instructions ?Recorded ?Confirmed ?Type amlodipine 5 mg tablet 10 mg PO QDAY High Blood Pressure 07/21/14 12/23/24 History ##30 atenolol 25 mg tablet 25 mg PO QDAY 03/01/20 12/23/24 History glipizide 10 mg tablet 10 mg PO BID 03/01/20 12/23/24 History sitagliptin phosphate 100 mg 100 mg PO QDAY 03/01/20 12/23/24 History tablet (Januvia) atorvastatin 80 mg tablet 80 mg PO QPM 06/13/20 12/23/24 History cinnamon bark 500 mg capsule 500 mg PO BID 06/13/20 12/23/24 History (Cinnamon) cetirizine 10 mg tablet (24Hour 10 mg PO QDAY PRN allergy symptoms 12/23/24 12/23/24 History Allergy) furosemide 40 mg tablet (Lasix) 40 mg PO QAM 12/23/24 12/23/24 History insulin glargine 100 unit/mL (3 20 unit subcut QPM 12/23/24 12/23/24 History mL) subcutaneous pen (Lantus Solostar U-100 Insulin) valsartan 80 mg tablet 80 mg PO PRN 12/23/24 12/23/24 History Allergies Allergy/AdvReac Type Severity Reaction Status Date / Time No Known Allergies Allergy Verified 12/22/24 16:36 Visit Medications Acetaminophen (Acetaminophen 325 Mg Tablet) 650 mg PO Q6H PRN PRN Reason: PAIN 1- 10 OR FEVER > 100.4 Stop: 01/21/25 21:17 Albuterol/Ipratropium (Albuterol/Ipratropium (Duoneb) Rt Robina 3 Ml Nebu) 3 ml INH TID YOU Stop: 01/22/25 05:59 Last Admin: 12/23/24 13:25 Dose: 3 ml Dextrose (Dextrose 50%-Water Inj 50 Ml Syringe) 25 ml IV Q15MIN PRN PRN Reason: BG 50-70 responsive npo pt Stop: 01/21/25 22:19 Dextrose (Dextrose 50%-Water Inj 50 Ml Syringe) 50 ml IV Q15MIN PRN PRN Reason: BG <50 OR BG <70 & pt unresponsive Stop: 01/21/25 22:19 Glucagon (Glucagon Inj 1 Mg Vial) 1 mg IM Q15MIN PRN PRN Reason: BG <70, and no IV access Heparin Sodium (Porcine) (Heparin Sod Inj 5000 Unit/Ml Vial) 5,000 unit SC Q8HR YOU Stop: 01/05/25 21:59 Last Admin: 12/23/24 13:53 Dose: 5,000 unit Hydralazine HCl (Hydralazine Inj 20 Mg/Ml Vial) 10 mg IVP Q4H PRN PRN Reason: SBP >180 or DBP >120 Stop: 01/21/25 23:58 Bumetanide 20 mg/ IV (Miscellaneous Supplies) 80 mls @ 8 mls/hr IV .Q10H YOU Stop: 12/23/24 18:00 Last Admin: 12/23/24 08:58 Dose: 2 mg/hr, 8 mls/hr Insulin Degludec (Insulin Degludec 5 Unit/0.05 Ml (Per 5 Units)) 20 unit SC QDAY [facility] Stop: 01/23/25 08:59 Insulin Human Lispro (Insulin Lispro (Admelog) 1 Unit/0.01 Ml Unit) 0 unit SC ACHS [facility]; Protocol Stop: 01/22/25 07:29 Last Admin: 12/23/24 11:28 Dose: 4 unit Insulin Human Lispro (Insulin Lispro (Admelog) 1 Unit/0.01 Ml Unit) 7 unit SC AC [facility] Stop: 01/22/25 11:29 Last Admin: 12/23/24 11:27 Dose: 7 unit Ondansetron HCl (Ondansetron Inj 2 Mg/Ml Inj 2 Ml) 4 mg IVP Q6H PRN; Protocol PRN Reason: NAUSEA OR VOMITING Stop: 01/21/25 21:17 Discontinued Medications Albuterol/Ipratropium (Albuterol/Ipratropium (Duoneb) Rt Robina 3 Ml Nebu) 3 ml INH X1 ONE Stop: 12/22/24 21:14 Last Admin: 12/22/24 21:35 Dose: 3 ml Albuterol/Ipratropium (Albuterol/Ipratropium (Duoneb) Rt Robina 3 Ml Nebu) 3 ml INH Q4HRRT YOU Stop: 01/21/25 22:59 Last Admin: 12/22/24 23:31 Dose: 3 ml Furosemide (Furosemide Inj 10 Mg/Ml 4ml Vial) 40 mg IVP X1 ONE Stop: 12/22/24 18:50 Last Admin: 12/22/24 19:12 Dose: 40 mg Furosemide (Furosemide Inj 10 Mg/Ml 4ml Vial) 80 mg IVP X1 ONE Stop: 12/22/24 21:10 Last Admin: 12/22/24 21:50 Dose: 80 mg Furosemide (Furosemide Inj 10 Mg/Ml Vial 2 Ml) 40 mg IVP TID YOU Stop: 01/22/25 05:59 Furosemide (Furosemide Inj 10 Mg/Ml Vial 2 Ml) 40 mg IVP BID YOU Stop: 01/22/25 08:59 Last Admin: 12/23/24 08:12 Dose: 40 mg Influenza Virus Vaccine Quadrival (Influenza Virus 0.5 Ml Syringe ) 0.5 ml IMi .ONCE ONE Stop: 12/23/24 04:26 Insulin Degludec (Insulin Degludec 5 Unit/0.05 Ml (Per 5 Units)) 20 unit SC X1 ONE Stop: 12/23/24 10:35 Last Admin: 12/23/24 11:28 Dose: 20 unit Insulin Human Lispro (Insulin Lispro (Admelog) 1 Unit/0.01 Ml Unit) 0 unit SC AC YOU; Protocol Stop: 01/22/25 07:29 Insulin Human Lispro (Insulin Lispro (Admelog) 1 Unit/0.01 Ml Unit) 0 unit SC ACHS YOU; Protocol Stop: 01/22/25 07:29 Last Admin: 12/23/24 07:27 Dose: 3 unit Assessment & Plan Plan Farideh Dietrich 69F pmhx significant for CKD stage IV, IDDM2, HTN, and HLD presents to [facility] ED 12/22 for worsening shortness of breath and significant edema, admitted for volume overload 2/2 HFpEF vs kidney failure. Nephrology consulted for JETHRO on CKDIV. #JETHRO on CKDIV Presented with anascarca without improvement on home PO Lasix. On admission Cr 3.2 and GFR 15. Patient sees Dr[address] Will and discussed possibly initiating dialysis soon. Unknown baseline Cr but last told GFR [address] Will. Renal US limited study due to body habitus. Ddx: Likely progression of CKD to ESRD 2/2 longstandig hx of DM2 and HTN vs cardiorenal (HFpEF) Plan: - Bumex drip 2 mg/hr for 10 hrs - Monitor for kidney improvement, will contact Dr. Will - Strict I&Os, daily weights, 1.8L fluid restriction - Avoid nephrotoxins and renally dose #Hyponatremia Likely 2/2 hypervolemia and dilution vs CKD. 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 Plan of care discussed with attending Dr. Nuno. Yolette Lan DO PGY-1 Internal Medicine Attending Provider Attestation/Addendum patient seen and examined with resident physician Dr. Lan. Note reviewed, agree with findings and recommendations. Patient currently seen in telemetry. CKD IV patient of Dr. Will. Significant anasarca noted. Has has been diabetic for many years along with hypertension and cholesterol problems. Shortness of breath noted. Will give her Bumex drip and monitor closely her renal function. Did explain that if there is no improvement in renal function or if the patient continues to be with severe anasarca-she might need a temporary dialysis. Patient agreed. Thank you Heather for allowing me to participate in the care of Ms. Gong
--- NOTE | 2024-12-23 14:11 | ESCONSULT_ITS ---
<Statement entered by Sorin Miller MD - 12/25/24 18:17> I personally examined evaluated the patient and counseled patient report all essential components are reviewed evaluated patient with resident physician PGY 1 patient clearly has acute and chronic kidney disease and renal failure with hypertension and obesity signs and symptoms of acute decompensated heart failure with volume overload compounded by renal failure patient appears to have heart failure preserved ejection fraction echocardiogram is reviewed appears to have normal ejection fraction. Agree with IV Bumex therapy continue he is patient close monitoring if renal function worsens and she does not increase urine output may require dialysis evaluated patient with resident physician will continue to monitor the patient closely while in telemetry. HPI Data of Consult Requesting Physician: Heather Goff MD Admitting Provider: Stephane Wynne MD Attending Provider: Heather Goff MD Primary Care Provider: Physician No Primary/Family Consult Narrative Reason for consult: Potential New Onset CHF History of present illness: 69-year-old female history of CKD stage IV, insulin-dependent type 2 diabetes mellitus, hyperlipidemia, hypertension, presents with worsening shortness of breath and cough over the past 4 days, associated with increased bilateral lower extremity swelling. She has been unable to lie flat and has been sleeping in a recliner for relief. Patient denies chest pain, abdominal pain, or fever. She has no history of asthma but uses an inhaler as needed for bronchitis, which provides minimal relief. Additionally, she reports decreased urine output and burning with urination. She has a history of recurrent urinary tract infections over the past year and has open pressure ulcers on her buttocks, which make urination difficult. The patient lives with her and grandson, with the grandson being sick for over a week. Patient follows up with Dr. Will, a pathology laboratory director in [place], and was last seen 1.5 months ago. She is nearing the need for dialysis. She took her Lasix today but has not noticed significant improvement in her symptoms. Past medical history: As above. Allergies: NKDA Family history: Noncontributory. Social history: No alcohol use, no smoking, no illicit drug use. cc:: cc: Heather Goff MD Review of Systems Review of Systems Narrative Review of Systems: General: Denies fevers or chills HEENT: Denies congestion or sore throat Heart: Denies chest pain or palpitations Lungs: Endorses shortness of breath Abdomen: Denies diarrhea, nausea or vomiting, constipation, BRBPR, melena Genitourinary: Endorses frequency, urgency, dysuria, Musculoskeletal: Endorses bilateral lower extremity swelling Neurology: Denies numbness, tingling ROS otherwise negative except what is mentioned above. Exam Vital Signs Temp Pulse Resp BP Pulse Ox O2 Del Method O2 Flow Rate 97.6 F 57 L 20 151/69 H 98 Nasal Cannula 2 12/23/24 11:47 12/23/24 13:25 12/23/24 13:12/23/24 11:47 12/23/24 13:12/23/24 11:47 12/23/24 13: Narrative Exam General: A/O x3, no acute distress, well-nourished, well-developed, coulter catheter in Eyes: PERRL, EOMI. Anicteric, vision grossly intact. Ears: No ear pain, no ear discharge, Hearing grossly intact. Nose: No nasal discharge. Mouth/Throat: Moist mucous membranes, no redness, no lesions. Neck: Neck supple, non-tender, no cervical lymphadenopathy. Lungs: swlight bilateral wheezing, No accessory muscle use. Cardio: Normal S1/S2, regular rhythm, no murmurs, no JVD or carotid bruits. Abdomen: Soft, non-tender, no palpable masses, peristalsis present, no guarding or rebound. Extremities: Symmetrical, no significant deformities, peripheral edema to mid- cramer bilaterally , non-tender, peripheral pulses present. Skin: No rashes, no lesions, warm to touch. Neuro: No focal neurological deficits. Psych: Cooperative, appropriate mood and effect. Results Labs 12/23/24 05:12/23/24 05:25 Labs: Short CBC 12/22/24 12/23/24 Range/Units 17:17 05:25 WBC 12.3 H 10.6 (3.6-11.0) Thou/mm3 Hgb 10.9 L 10.4 L (12.0-16.0) g/dL Hct 31.3 L 30.6 L (36.0-46.0) % Plt Count 301 293 (140-440) Thou/mm3 BMP 12/22/24 12/23/24 17:17 05:25 Sodium 126 L 130 L Potassium 5.1 4.8 Chloride 94 L 97 L Carbon Dioxide 23.3 25.0 BUN 60 H 54 H Creatinine 3.2 H 2.9 H Glucose 310 H 311 H Calcium 9.0 8.8 Cardiac Enzymes 12/22/24 Range/Units 17:17 Troponin I < 0.020 (0.0-0.045) ng/mL Liver Function 12/22/24 Range/Units 17:17 Total Bilirubin 0.9 (0.3-1.2) mg/dL AST 18 (0-34) U/L ALT 14 (10-49) U/L Alkaline Phosphatase 53 (46-116) U/L Albumin 4.3 (3.4-4.8) gm/dL Urine 12/22/24 12/22/24 Range/Units 19:10 21:55 Urine Color Lt-Yellow Colorless A (Lt Yel-Yel) Urine Clarity Clear Clear (Clear/Hazy) Urine pH 6.0 5.5 (5.0-7.0) Ur Specific [place] 1.014 1.005 (1.001-1.035) Urine Protein 2+ A 1+ A (Neg - Trace) Urine Glucose (UA) 2+ A Negative (Negative) Quality Measures Quality Measures VTE prophylaxis Advance care planning discussed with:: other Medications Home Medications and Allergies Home Medications ?Medication ?Instructions ?Recorded ?Confirmed ?Type amlodipine 5 mg tablet 10 mg PO QDAY High Blood Pre ssure 07/21/14 12/23/24 History ##30 atenolol 25 mg tablet 25 mg PO QDAY 03/01/2012/23 History glipizide 10 mg tablet 10 mg PO BID 03/01/20 History sitagliptin phosphate 100 mg 100 mg PO QDAY 03/01/20 1 02/23/24 History tablet (Januvia) atorvastatin 80 mg tablet 80 mg PO QPM 06/13/20 History cinnamon bark 500 mg capsule 500 mg PO BID 06/13/20 History (Cinnamon) cetirizine 10 mg tablet (24Hour 10 mg PO QDAY PRN yudi rgy symptoms 12/23/24 12/23/24 History Allergy) furosemide 40 mg tablet (Lasix) 40 mg PO QAM 12/23/24 12/23/24 History insulin glargine 100 unit/mL (3 20 unit subcut QPM 12/23/24 History mL) subcutaneous pen (Lantus Solostar U-100 Insulin) valsartan 80 mg tablet 80 mg PO PRN 12/23/24 History Allergies Allergy/AdvReac Type Severity Reaction Status Date / Time No Known Allergies Allergy Verified 12/22/24 16:36 Visit Medications Acetaminophen (Acetaminophen 325 Mg Tablet) 650 mg PO Q6H PRN PRN Reason: PAIN 1- 10 OR FEVER > 100.4 Stop: 01/21/25 21:17 Albuterol/Ipratropium (Albuterol/Ipratropium (Duoneb) Rt Robina 3 Ml Nebu) 3 ml INH TID PRN PRN Reason: SHORTNESS OF BREATH Stop: 01/22/25 05:59 Dextrose (Dextrose 50%-Water Inj 50 Ml Syringe) 25 ml IV Q15MIN PRN PRN Reason: BG 50-70 responsive npo pt Stop: 01/21/25 22:19 Dextrose (Dextrose 50%-Water Inj 50 Ml Syringe) 50 ml IV Q15MIN PRN PRN Reason: BG <50 OR BG <70 & pt unresponsive Stop: 01/21/25 22:19 Glucagon (Glucagon Inj 1 Mg Vial) 1 mg IM Q15MIN PRN PRN Reason: BG <70, and no IV access Heparin Sodium (Porcine) (Heparin Sod Inj 5000 Unit/Ml Vial) 5,000 unit SC Q8HR [facility] Stop: 01/05/25 21:59 Last Admin: 12/23/24 13:53 Dose: 5,000 unit Hydralazine HCl (Hydralazine Inj 20 Mg/Ml Vial) 10 mg IVP Q4H PRN PRN Reason: SBP >180 or DBP >120 Stop: 01/21/25 23:58 Bumetanide 20 mg/ IV (Miscellaneous Supplies) 80 mls @ 8 mls/hr IV .Q10H [facility] Stop: 12/23/24 18:00 Last Admin: 12/23/24 08:58 Dose: 2 mg/hr, 8 mls/hr Insulin Degludec (Insulin Degludec 5 Unit/0.05 Ml (Per 5 Units)) 20 unit SC QDAY [facility] Stop: 01/23/25 08:59 Insulin Human Lispro (Insulin Lispro (Admelog) 1 Unit/0.01 Ml Unit) 0 unit SC ACHS [facility]; Protocol Stop: 01/22/25 07:29 Last Admin: 12/23/24 11:28 Dose: 4 unit Insulin Human Lispro (Insulin Lispro (Admelog) 1 Unit/0.01 Ml Unit) 7 unit SC AC [facility] Stop: 01/22/25 11:29 Last Admin: 12/23/24 11:27 Dose: 7 unit Ondansetron HCl (Ondansetron Inj 2 Mg/Ml Inj 2 Ml) 4 mg IVP Q6H PRN; Protocol PRN Reason: NAUSEA OR VOMITING Stop: 01/21/25 21:17 Discontinued Medications Albuterol/Ipratropium (Albuterol/Ipratropium (Duoneb) Rt Robina 3 Ml Nebu) 3 ml INH X1 ONE Stop: 12/22/24 21:14 Last Admin: 12/22/24 21:35 Dose: 3 ml Albuterol/Ipratropium (Albuterol/Ipratropium (Duoneb) Rt Robina 3 Ml Nebu) 3 ml INH Q4HRRT [facility] Stop: 01/21/25 22:59 Last Admin: 12/22/24 23:31 Dose: 3 ml Albuterol/Ipratropium (Albuterol/Ipratropium (Duoneb) Rt Robina 3 Ml Nebu) 3 ml INH TID [facility] Stop: 01/22/25 05:59 Last Admin: 12/23/24 13:25 Dose: 3 ml Furosemide (Furosemide Inj 10 Mg/Ml 4ml Vial) 40 mg IVP X1 ONE Stop: 12/22/24 18:50 Last Admin: 12/22/24 19:12 Dose: 40 mg Furosemide (Furosemide Inj 10 Mg/Ml 4ml Vial) 80 mg IVP X1 ONE Stop: 12/22/24 21:10 Last Admin: 12/22/24 21:50 Dose: 80 mg Furosemide (Furosemide Inj 10 Mg/Ml Vial 2 Ml) 40 mg IVP TID [facility] Stop: 01/22/25 05:59 Furosemide (Furosemide Inj 10 Mg/Ml Vial 2 Ml) 40 mg IVP BID [facility] Stop: 01/22/25 08:59 Last Admin: 12/23/24 08:12 Dose: 40 mg Influenza Virus Vaccine Quadrival (Influenza Virus 0.5 Ml Syringe ) 0.5 ml IMi .ONCE ONE Stop: 12/23/24 04:26 Insulin Degludec (Insulin Degludec 5 Unit/0.05 Ml (Per 5 Units)) 20 unit SC X1 ONE Stop: 12/23/24 10:35 Last Admin: 12/23/24 11:28 Dose: 20 unit Insulin Human Lispro (Insulin Lispro (Admelog) 1 Unit/0.01 Ml Unit) 0 unit SC AC [facility]; Protocol Stop: 01/22/25 07:29 Insulin Human Lispro (Insulin Lispro (Admelog) 1 Unit/0.01 Ml Unit) 0 unit SC ACHS [facility]; Protocol Stop: 01/22/25 07:29 Last Admin: 12/23/24 07:27 Dose: 3 unit Assessment & Plan Plan 69-year-old female history of CKD stage IV, insulin-dependent type 2 diabetes mellitus, hyperlipidemia, hypertension, presents with worsening shortness of breath and cough over the past 4 days, associated with increased bilateral lower extremity swelling. Patient admitted for possible new diagnosis of CHF, and JETHRO on CKD. #Acute on chronic HFpEF Shortness of breath and cough over the past 4 days, associated with increased bilateral lower extremity swelling. 2+ pitting edema bilaterally to shins today. Unable to lie flat; sleeps in a recliner. BNP 465 on admission CXR- mild CHF In ED patient received Lasix 120 mg IV Echo - EF 55-60% 12/23/24 Plan ? Bumex 2 mg/hr until fluid overload improves, then consider reducing diuresis ? Strict ROBBIE's ? Daily weights ? Fluid restriction 1.8 L - Follow up with cardiology outpatient #Hypertensive urgency #History of hypertension Highest blood pressure reading 186/78; end organ damage unclear due to previous CKD diagnosis According to patient takes valsartan and atenolol but cannot remember other BP meds Plan: Diurese as above Continue hydralazine 10mg Q4H PRN for SBP > 180 #Sinus bradycardia Pulse 51 on admission; currently 63 Patient at home takes atenolol for blood pressure control Plan: Hold atenolol #Acute hypoxemic respiratory failure #JETHRO on CKD #History of CKD, stage IV #Hyponatremia, mild #Type 2 diabetes mellitus, [id number] #Hyperlipidemia #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 Miller. Carmine Tran, PGY1
--- NOTE | 2024-12-23 14:46 | PC.SS ---
SS met with patient regarding her d/c plan. Pt is alert/oriented. Pt was admitted for New CHF, JETHRO on CKD. Pt confirmed demographic and contact information is correct on facesheet. Pt resides with and grandchildren. Pt ambulates independently without assistance or DME. Pt is ok with all ADLs. Pt named her , Kwadwo Dietrich medical decision if she is unable. SS provided verbal d/c options for home or SNF. SS has informed pt PT recommended SNF and pt is agreeable. Pt is also agreeable for SNF to contact SS before contacting her for placement. Pt does not have prefernce for SNF placement. Pt followed up with PCP last month. D/C plan: SNF Next of Kin: Kwadwo Dietrich, , phone# [phone] or [phone] PCP: [facility] Address: Correct on facesheet
[2024-12-23 14:55] LABS: Creatinine,Random Urine 24 mg/dL (30-125); Protein Total, Random Urine 60 mg/dL (1-14)
--- NOTE | 2024-12-23 15:03 | PC.SS ---
SS has sent inquiry to the local SNF using [facility].
[2024-12-24] VITALS (9 sets, daily range): BP systolic 136–165; BP diastolic 61–77; PULSE 51–76; RESP 16–23; TEMP 36.1–36.8; O2SAT 90–99; BMI 50.2; BMI 13.0
[2024-12-24] MEDS: HEPARIN SOD INJ 5000 UNIT/ML VIAL SC ×3 (05:08→21:53)
[2024-12-24 06:23] LABS: Basophils # (Auto) 0.1 Thou/mm3 (0.0-0.2); Basophils % (Auto) 1 % (0-2.5); Eosinophils # (Auto) 0.5 Thou/mm3 (0.0-0.5); Eosinophils % (Auto) 5 % (0-10); Hematocrit 28.1 % (36.0-46.0); Hemoglobin 9.6 g/dL (12.0-16.0); Immature Granulocytes Auto 0.10 Thou/mm3 (0.00-0.00); Lymphocytes # (Auto) 1.9 Thou/mm3 (1.0-4.8); Lymphocytes % (Auto) 18 % (10-50); Mean Corpuscular HGB Conc 34.2 g/dl (31.0-37.0); Mean Corpuscular Hemoglobin 28.4 pg (25.0-35.0); Mean Corpuscular Volume 83 fL (80-100); Monocytes # (Auto) 0.7 Thou/mm3 (0.0-0.8); Monocytes % (Auto) 7 % (0-12); Neutrophils # (Auto) 7.2 Thou/mm3 (1.8-7.7); Neutrophils % (Auto) 69 % (37-80); Nucleated Red Blood Cell # 0.00 Thou/mm3 (0.00-0.00); Nucleated Red Blood Cell % 0 /100 WBC (0); Platelet Count 260 Thou/mm3 (140-440); RDW Standard Deviation 45.4 fL (36.4-46.3); Red Blood Count 3.38 Miln/mm3 (4.00-5.20); White Blood Count 10.4 Thou/mm3 (3.6-11.0)
[2024-12-24 06:49] LABS: BUN/Creatinine Ratio 20 Ratio (12-20); Blood Urea Nitrogen 55 mg/dL (9-23); Calcium 8.6 mg/dL (8.3-10.6); Chloride 96 mMol/L (98-107); Creatinine (Component) 2.7 mg/dL (0.6-1.3); Estimated Creatinine Clearance 21.8 mL/min (>60); Glucose 122 mg/dL (74-106); Osmolality,Calculated 282 (275-295); Potassium 4.3 mMol/L (3.4-5.1); Sodium 133 mMol/L (136-145); eGFR 18 See Note
[2024-12-24 07:03] LABS: Carbon Dioxide 26.2 mMol/L (20.0-31.0); Magnesium 1.9 mg/dL (1.6-2.6); Phosphorous 4.9 mg/dL (2.4-5.1)
[2024-12-24 07:05] LABS: Anion Gap 11 (7-16)
--- NOTE | 2024-12-24 08:14 | ESPR_ITS ---
<Statement entered by Jeremías Crowell MD - 12/24/24 18:12> Patient seen and examined at bedside. I discussed and supervised with the internal revenue service agent physician who took care of this patient. I personally saw and examined the patient. I agree with most of the assessment and plan. Continuing diuresis with Bumex drip, patient has adequate urine output. Resumed home amlodipine. Plan of care discussed with attending Dr. Sandhu. Jeremías Crowell MD PGY-2 Documentation for date of: 12/24/24 Subjective Subjective Interval history: No acute event overnight. Patient reported feeling better, coughed up more mucus that was thick.? Unable to report color because patient swallowed it. ?Reported breathing is better after. ?Reported feeling sore overnight, better in the morning.? Nephrology team continue to give Bumex 20 mg drip today and reassess for diuresis tomorrow. ?-24-hour ROBBIE was -3.1 L.? Patient is satting 94% on 2 L nasal cannula.? Blood glucose is currently controlled with insulin sliding scale.? Will restart home amlodipine 5 mg daily.? Renal function is gradually back to baseline. Consulted tail trimmer, Dr. Miller, appreciate recs: Bumex 2 mg/h until fluid overload improves, then consider reducing diuresis, following up with cardiology outpatient, continue hydralazine 10 mg every 4 hours as needed for SBP more than 180 for hypertensive urgency, hold home atenolol due to sinus bradycardia Exam Vital Signs Temp Pulse Resp BP Pulse Ox O2 Del Method O2 Flow Rate 97.8 F 53 L 20 153/62 H 98 Nasal Cannula 3 12/24/24 04:00 12/24/24 07:20 12/24/24 07:20 12/24/24 04:00 12/24/24 07:20 12/24/24 04:00 12/24/24 07:20 Narrative Exam General: AOx3, no acute distress, able to speak full sentences, Bel[place]ian- speaking, comfortable in NC HEENT: NC/AT, mucous membranes moist, bilateral sclera anicteric Cardiovascular: regular rate and rhythm, S1/S2 present, no murmurs appreciated Pulmonary: minimal bilateral wheezing Abdominal: soft, non-tender, non-distended, no rebound/guarding, normal bowel sounds present Musculoskeletal: normal ROM, bilateral peripheral pitting edema 2+ up to knees Skin: warm and dry, intact, no rashes, Neuro: CN II-XII intact, no focal deficits Objective Labs 12/25/24 05:56 12/24/24 05:52 Labs: Laboratory Results - last 24 hr 12/23/24 12/24/24 13:40 05:52 WBC 10.4 RBC 3.38 L Hgb 9.6 L Hct 28.1 L MCV 83 MCH 28.4 MCHC 34.2 RDW Std Deviation 45.4 Plt Count 260 D Neut % (Auto) 69 Lymph % (Auto) 18 [place] % (Auto) 7 Eos % (Auto) 5 Baso % (Auto) 1 Neut # (Auto) 7.2 Lymph # (Auto) 1.9 [place] # (Auto) 0.7 Eos # (Auto) 0.5 Baso # (Auto) 0.1 Immature Gran # (Auto) 0.10 H Absolute Nucleated RBC 0.00 Immature Gran % 1 H Nucleated RBC % 0 Sodium 133 L Potassium 4.3 D Chloride 96 L Carbon Dioxide 26.2 Anion Gap 11 BUN 55 H Creatinine 2.7 H Estim Creat Clear Calc 21.8 L eGFR 18 L BUN/Creatinine Ratio 20 Glucose 122 H D Calculated Osmolality 282 Calcium 8.6 Phosphorus 4.9 Magnesium 1.9 Ur Random Creatinine 24 L U Random Total Protein 60 H Quality Measures Quality Measures VTE prophylaxis Advance care planning discussed with:: patient Assessment & Plan Assessment Current Active Medications: Generic Name Dose Route Start Last Admin Trade Name Freq PRN Reason Stop Dose Admin Acetaminophen 650 mg 12/22/24 21:18 Acetaminophen 325 Mg Tablet PO 01/21/25 21:17 Q6H PRN PAIN 1- 10 OR FEVER > 100.4 Albuterol/Ipratropium 3 ml 12/23/24 14:00 Albuterol/Ipratropium (Duoneb) Rt Robina 3 Ml Nebu INH 01/22/25 05:59 TID PRN SHORTNESS OF BREATH Dextrose 25 ml 12/22/24 22:20 Dextrose 50%-Water Inj 50 Ml Syringe IV 01/21/25 22:19 Q15MIN PRN BG 50-70 responsive npo pt Dextrose 50 ml 12/22/24 22:20 Dextrose 50%-Water Inj 50 Ml Syringe IV 01/21/25 22:19 Q15MIN PRN BG <50 OR BG <70 & pt unresponsive Glucagon 1 mg 12/22/24 22:20 Glucagon Inj 1 Mg Vial IM Q15MIN PRN BG <70, and no IV access Heparin Sodium (Porcine) 5,000 unit 12/22/24 22:00 12/24/24 05:08 Heparin Sod Inj 5000 Unit/Ml Vial SC 01/05/25 21:59 5,000 unit Q8HR [facility] Administration Hydralazine HCl 10 mg 12/22/24 23:59 Hydralazine Inj 20 Mg/Ml Vial IVP 01/21/25 23:58 Q4H PRN SBP >180 or DBP >120 Insulin Degludec 20 unit 12/24/24 09:00 Insulin Degludec 5 Unit/0.05 Ml (Per 5 Units) [place] 01/23/25 08:59 QDAY [facility] Insulin Human Lispro 0 unit 12/23/24 10:35 12/24/24 07:16 Insulin Lispro (Admelog) 1 Unit/0.01 Ml Unit [place] 01/22/25 07:29 Not Given ACHS [facility] Protocol Insulin Human Lispro 7 unit 12/23/24 11:30 12/23/24 16:42 Insulin Lispro (Admelog) 1 Unit/0.01 Ml Unit SC 01/22/25 11:29 7 unit AC YOU Administration Ondansetron HCl 4 mg 12/22/24 21:18 Ondansetron Inj 2 Mg/Ml Inj 2 Ml IVP 01/21/25 21:17 Q6H PRN NAUSEA OR VOMITING Protocol Plan 69-year-old female history of CKD stage IV, insulin-dependent type 2 diabetes mellitus, hyperlipidemia, hypertension, presents with worsening shortness of breath and cough over the past 4 days, associated with increased bilateral lower extremity swelling. Patient admitted for possible new diagnosis of CHF, and JETHRO on CKD. #Acute hypoxemic respiratory failure, likely secondary to volume overload In the setting of fluid overload, JETHRO on CKD versus new diagnosis of CHF. Currently on 4 L of oxygen and saturating at 93%. CXR showed mild CHF. Bilateral peripheral pitting edema 2+ up to knees Echo showed LVEF 55-60%. Renal ultrasound showed significant right renal scar, no hydronephrosis 12/24: Net 24h -3.1L. Still 2+ bilaterally pitting edema. Plan ? Discontinue Lasix ? Start second bag of Bumex 20mg gtt ? Reassess for diuresis tomorrow with nephrology team ? Consult Manager Property, Dr. Nuno, appreciate ongoing recs ? DuoNebs PRN ? Supp O2 as needed #Possible new diagnosis of CHF Worsening shortness of breath and cough over the past 4 days, associated with increased bilateral lower extremity swelling. She has been unable to lie flat and has been sleeping in a recliner for relief. Mentions with being heavy however has not measured herself. BNP 465 2+ bilateral lower extremity pitting edema up to knees. Chest x-ray shows mild CHF. In ED patient received Lasix 120 mg IV. Echo showed LVEF 55-60%. Renal ultrasound showed significant right renal scar, no hydronephrosis Plan ? Discontinue Lasix ? Start second bag of Bumex 20mg gtt ? Consult Manager Property, Dr. Nuno, appreciate ongoing recs ? Strict ROBBIE's ? Daily weights ? Fluid restriction 1.5 L ? Consult Duralumin Mechanic, Dr. Miller, appreciate recs #Hypertensive urgency #History of hypertension Highest blood pressure reading 186/78. According to patient takes at least 3 blood pressure medications, mentions taking valsartan and atenolol but cannot remember others. Pending official med recs. 12/24 BP 165/64 Plan ? Hydralazine as needed ? Restart home amlodipine 5mg QD ? Hold home atenolol for now due to bradycardia #JETHRO on CKD - improving #History of CKD, stage IV DDx prerenal (CHF) versus intrarenal (ATN due to diabetes) versus postrenal (obstruction) Patient sees Dr. Will, a airport location manager in [place], and was last seen 1.5 months ago. She is nearing the need for dialysis, however not there yet. Patient is making urine Creatinine on admission 3.2, unsure what the baseline is. eGFR 15 Echo showed LVEF 55-60%. Renal ultrasound showed significant right renal scar, no hydronephrosis 12/24: BUN and creatinine stay the same, still making urine, likely her baseline. Plan ? Nephrology consulted by ED provider, Dr. Nuno, see recs ? Avoid nephrotoxic agent ? Renally dose medications #Hyponatremia, mild - improving Asymptomatic Na 131 (sodium corrected for hyperglycemia) Plan ? Sodium with a.m. lab #Sinus bradycardia EKG showed sinus bradycardia, rate 51 bpm Patient at home takes atenolol for blood pressure control Plan ? Hold atenolol as not an appropriate medication for the patient #Type 2 diabetes mellitus, [id number] According to patient takes Lantus, Januvia, glipizide.? A1c 7.3.? Blood glucose on admission 310 12/24: BG 122, on ISS Plan ? 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 Emphasized importance of urgently getting evaluated in the outpatient setting Health Maintenance: Diet: Low carb consistent diet, fluid restriction 1.5 L, low protein, cardiac diet GI prophylaxis: None DVT prophylaxis: Heparin 5000 units SC every 8 hours Antibiotics: None CODE STATUS: DNR Disposition: Telemetry Assessment and plan discussed with my attending physician Dr. Sandhu and Dr. Crowell (PGY-2). Dr. Oropeza (PGY-1) ? residential concierge Attending Provider Attestation/Addendum Elva, Lorraine Sandhu, DO, attest that I was physically present for the miguel portions of the service and evaluated the patient with the resident and I reviewed and discussed the case with the resident and agree with the resident's findings and plans of care as documented above Patient seen and evaluated this AM. is at bedside. She states that she is feeling much improved. She is on room air and eating lunch. No breaks in sentence in speech. Patient has had a total of 7500 mL of urinary output. She continues to have 3+ pitting edema in b/l LE. Patient states her legs still feel heavy when ambulating to the bathroom due to lower extremity edema. Discussed the results of patient's echo. Will continue with bumex drip at this time. Continue to monitor I's and O's.
--- NOTE | 2024-12-24 08:43 | PC.SS ---
Follow up note: On IV diuresis. Pt will d/c to SNF.
[2024-12-24] MEDS: INSULIN DEGLUDEC 5 UNIT/0.05 ML (PER 5 UNITS) 20 UNIT SC (08:45)
[2024-12-24] MEDS: MAGNESIUM OXIDE 400 MG TABLET PO (08:45)
--- NOTE | 2024-12-24 08:57 | PD.RESPRO ---
Documentation for date of: 12/24/24 Subjective Subjective Interval history: 69-year-old female history of CKD stage IV, insulin-dependent type 2 diabetes mellitus, hyperlipidemia, hypertension, presents with worsening shortness of breath and cough over the past 4 days, associated with increased bilateral lower extremity swelling. She has been unable to lie flat and has been sleeping in a recliner for relief. The patient denies chest pain, abdominal pain, or fever. She has no history of asthma but uses an inhaler as needed for bronchitis, which provides minimal relief. Additionally, she reports decreased urine output and burning with urination. She has a history of recurrent urinary tract infections over the past year and has open pressure ulcers on her buttocks, which make urination difficult. The patient lives with her and grandson, with the grandson being sick for over a week. Patient follows up with Dr. Will, a corporate compliance manager in [place], and was last seen 1.5 months ago. She is nearing the need for dialysis. She took her Lasix today but has not noticed significant improvement in her symptoms. 12/23/24: Patient seen and examined at bedside. Patient reports discussion with corporate compliance manager regarding possible dialysis. Has little support at home with busy grandchildren and with dementia and may have difficulty travelling to HD 3x/wk. At baseline walks using nearby structures to grab onto, has walker but does not use. Patient reports increased leg swelling, shortness of breath and abdominal distension prior to admission with decreased urine output and dysuria. Plan for Bumex drip 2 mg/hr for 10 hrs. Strict I&Os with coulter as burning on urination likely 2/2 minor buttock wounds as UA clean. Likely progressive CKD from HTN and DM to possible ESRD vs cardiorenal. 12/24/24: Patient seen and examined at bedside. Patient reports improved shortness of breath complains of diffuse aching likely secondary to volume removal as electrolytes are wnl. Mag repleted by primary team. Plan for IV Bumex drip 2 mg/hr for 10 hrs. recommend PT referral. Exam Vital Signs Temp Pulse Resp BP Pulse Ox O2 Del Method O2 Flow Rate 97.8 F 68 20 153/62 H 98 Nasal Cannula 3 12/24/24 04:00 12/24/24 08:00 12/24/24 07:20 12/24/24 04:00 12/24/24 07:20 12/24/24 04:00 12/24/24 07:20 Narrative Exam GENERAL: AOx3, no acute distress, sitting upright comfortably eating breakfast HEENT: mucous membranes moist, bilateral sclera anicteric CARDIOVASCULAR: regular rate and rhythm, S1/S2 present, no murmurs appreciated PULMONARY: decreased breath sounds bilaterally improved ABDOMINAL: soft, non-tender, distended, edematous, no rebound/guarding, bowel sounds present EXTREMITIES: 3+ BLE pitting edema hips>BLE SKIN: warm and dry NEURO: CN II-XII grossly intact, no focal deficits, alert, following commands Objective Labs 12/24/24 05:52 12/24/24 05:52 Labs: Laboratory Results - last 24 hr 12/23/24 12/24/24 13:40 05:52 WBC 10.4 RBC 3.38 L Hgb 9.6 L Hct 28.1 L MCV 83 MCH 28.4 MCHC 34.2 RDW Std Deviation 45.4 Plt Count 260 D Neut % (Auto) 69 Lymph % (Auto) 18 [place] % (Auto) 7 Eos % (Auto) 5 Baso % (Auto) 1 Neut # (Auto) 7.2 Lymph # (Auto) 1.9 [place] # (Auto) 0.7 Eos # (Auto) 0.5 Baso # (Auto) 0.1 Immature Gran # (Auto) 0.10 H Absolute Nucleated RBC 0.00 Immature Gran % 1 H Nucleated RBC % 0 Sodium 133 L Potassium 4.3 D Chloride 96 L Carbon Dioxide 26.2 Anion Gap 11 BUN 55 H Creatinine 2.7 H Estim Creat Clear Calc 21.8 L eGFR 18 L BUN/Creatinine Ratio 20 Glucose 122 H D Calculated Osmolality 282 Calcium 8.6 Phosphorus 4.9 Magnesium 1.9 Ur Random Creatinine 24 L U Random Total Protein 60 H Quality Measures Quality Measures VTE prophylaxis Advance care planning discussed with:: patient Assessment & Plan Assessment Current Active Medications: Generic Name Dose Route Start Last Admin Trade Name Freq PRN Reason Stop Dose Admin Acetaminophen 650 mg 12/22/24 21:18 Acetaminophen 325 Mg Tablet PO 01/21/25 21:17 Q6H PRN PAIN 1- 10 OR FEVER > 100.4 Albuterol/Ipratropium 3 ml 12/23/24 14:00 Albuterol/Ipratropium (Duoneb) Rt Robina 3 Ml Nebu INH 01/22/25 05:59 TID PRN SHORTNESS OF BREATH Dextrose 25 ml 12/22/24 22:20 Dextrose 50%-Water Inj 50 Ml Syringe IV 01/21/25 22:19 Q15MIN PRN BG 50-70 responsive npo pt Dextrose 50 ml 12/22/24 22:20 Dextrose 50%-Water Inj 50 Ml Syringe IV 01/21/25 22:19 Q15MIN PRN BG <50 OR BG <70 & pt unresponsive Glucagon 1 mg 12/22/24 22:20 Glucagon Inj 1 Mg Vial IM Q15MIN PRN BG <70, and no IV access Heparin Sodium (Porcine) 5,000 unit 12/22/24 22:00 12/24/24 05:08 Heparin Sod Inj 5000 Unit/Ml Vial SC 01/05/25 21:59 5,000 unit Q8HR YOU Administration Hydralazine HCl 10 mg 12/22/24 23:59 Hydralazine Inj 20 Mg/Ml Vial IVP 01/21/25 23:58 Q4H PRN SBP >180 or DBP >120 Bumetanide 20 mg/ IV 80 mls @ 8 mls/hr 12/24/24 08:50 Miscellaneous Supplies IV 12/25/24 04:49 .Q10H YOU 2 MG/HR Insulin Degludec 20 unit 12/24/24 09:00 12/24/24 08:45 Insulin Degludec 5 Unit/0.05 Ml (Per 5 Units) [place] 01/23/25 08:59 20 unit QDAY YOU Administration Insulin Human Lispro 0 unit 12/23/24 10:35 12/24/24 07:16 Insulin Lispro (Admelog) 1 Unit/0.01 Ml Unit [place] 01/22/25 07:29 Not Given ACHS [facility] Protocol Insulin Human Lispro 7 unit 12/23/24 11:30 12/24/24 08:48 Insulin Lispro (Admelog) 1 Unit/0.01 Ml Unit [place] 01/22/25 11:29 Not Given AC YOU Ondansetron HCl 4 mg 12/22/24 21:18 Ondansetron Inj 2 Mg/Ml Inj 2 Ml IVP 01/21/25 21:17 Q6H PRN NAUSEA OR VOMITING Protocol Plan Farideh Dietrich 69F pmhx significant for CKD stage IV, IDDM2, HTN, and HLD presents to [facility] ED 12/22 for worsening shortness of breath and significant edema, admitted for volume overload 2/2 HFpEF vs kidney failure. Nephrology consulted for JETHRO on CKDIV. #JETHRO on CKDIV Presented with anascarca without improvement on home PO Lasix. On admission Cr 3.2 and GFR 15. Patient sees Dr. Will and discussed possibly initiating dialysis soon. Unknown baseline Cr but last told GFR [address] Will. Renal US limited study due to body habitus. Bumex drip x1 12/23 with 5L output. Ddx: Likely progression of CKD to ESRD 2/2 longstandig hx of DM2 and HTN vs cardiorenal (HFpEF) Plan: - Bumex drip 2 mg/hr for 10 hrs again today - Monitor for kidney improvement, will contact Dr. Will - Strict I&Os, daily weights, 1.8L fluid restriction - Avoid nephrotoxins and renally dose - PT ordered #Hyponatremia Likely 2/2 hypervolemia and dilution vs CKD. 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 Plan of care discussed with attending Dr. Nuno. Yolette Lan DO PGY-1 Internal Medicine Attending Provider Attestation/Addendum patient seen and examined with resident physician Dr. Lan. Note reviewed, agree with findings and recommendations. Patient currently seen in telemetry. CKD IV patient of Dr. Will. Significant anasarca noted. Has has been diabetic for many years along with hypertension and cholesterol problems. Shortness of breath noted. Will give her Bumex drip and monitor closely her renal function. Did explain that if there is no improvement in renal function or if the patient continues to be with severe anasarca-she might need a temporary dialysis. Patient agreed. 12/24/2024 patient currently seen in telemetry. She put out 5 L with Bumex drip. Breathing is much better. Anasarca tad better. Will continue with another Bumex drip today. Creatinine slightly better. No need for dialysis or ultrafiltration. Electrolyte seems to be stable. Optimize blood pressure, blood sugar and lipid control. Renal ultrasound showed a right kidney small and left kidney was not able to be visualized due to her body habitus. Echocardiogram showed ejection fraction 55 to 60% Thank you Heather for allowing me to participate in the care of Ms. Gong
[2024-12-24] MEDS: BUMETANIDE INJ 20 MG in CONTAINER,EMPTY 50 ML 1 BAG 8 MG IV ×2 (09:41→17:17)
--- NOTE | 2024-12-24 10:42 | PC.SS ---
SS met with pt to provide her with [facility] which contains SNF information. SS provided verbal choices for accepting SNF and is aware [facility] will be doing an onsite evaluation.
[2024-12-24] MEDS: INSULIN LISPRO (AdmeLOG) 1 UNIT/0.01 ML UNIT 7 UNIT SC (11:52)
[2024-12-24] MEDS: INSULIN LISPRO (AdmeLOG) 1 UNIT/0.01 ML UNIT SC (11:53)
--- NOTE | 2024-12-24 13:10 | PC.CC ---
PASRR Level 1 complete and downloaded; Level 2 not required.
--- NOTE | 2024-12-24 15:43 | PC.SS ---
SS met with pt to discuss choices for SNF. Pt is aware she is possible d/c for tomorrow and requires insurance authorization. Patient's choice is [facility]. SS offered to contact to inform him of patient's choice for SNF and pt state she will notify him of her choice. SS spoke to Nohemi from [facility] (while SS was in patient's room) who states she will start insurance authorization. VANESSA has been sent to [facility] using [employer].
--- NOTE | 2024-12-24 16:36 | ESPR_ITS ---
<Statement entered by Sorin Miller MD - 12/25/24 18:22> I personally examined evaluated the patient with resident physician PGY 1 and patient appears to be clinically doing well she still making good urine output renal function stabilized patient's responding well sounds notified no need for dialysis patient clearly has HFrEF agree with volume overload and renal failure patient is clinically doing a lot better she is less orthopneic today we will monitor the patient closely urine output Bumex will be continued evaluated patient with resident physician agree with treatment plan recommendation as documented. Documentation for date of: 12/24/24 Subjective Subjective Interval history: Patient seen and examined at bedside; no acute events overnight. Breathing much better, able to sit upright in bed. Down 3L from yesterday. Exam Vital Signs Temp Pulse Resp BP Pulse Ox O2 Del Method O2 Flow Rate 97.2 F 62 17 138/68 H 99 Nasal Cannula 3 12/24/24 16:00 12/24/24 16:00 12/24/24 16:00 12/24/24 16:00 12/24/24 16:00 12/24/24 16:00 12/24/24 16:00 Narrative Exam General: A/O x3, no acute distress, well-nourished, well-developed, coulter catheter in Eyes: PERRL, EOMI. Anicteric, vision grossly intact. Ears: No ear pain, no ear discharge, Hearing grossly intact. Nose: No nasal discharge. Mouth/Throat: Moist mucous membranes, no redness, no lesions. Neck: Neck supple, non-tender, no cervical lymphadenopathy. Lungs: lung clear to auscultation, No accessory muscle use. Cardio: Normal S1/S2, regular rhythm, no murmurs, no JVD or carotid bruits. Abdomen: Soft, non-tender, no palpable masses, peristalsis present, no guarding or rebound. Extremities: Symmetrical, no significant deformities, peripheral edema to mid- cramer bilaterally , non-tender, peripheral pulses present. Skin: No rashes, no lesions, warm to touch. Neuro: No focal neurological deficits. Psych: Cooperative, appropriate mood and effect. Objective Labs 12/24/24 05:52 12/24/24 05:52 Labs: Laboratory Results - last 24 hr 12/24/24 05:52 WBC 10.4 RBC 3.38 L Hgb 9.6 L Hct 28.1 L MCV 83 MCH 28.4 MCHC 34.2 RDW Std Deviation 45.4 Plt Count 260 D Neut % (Auto) 69 Lymph % (Auto) 18 [place] % (Auto) 7 Eos % (Auto) 5 Baso % (Auto) 1 Neut # (Auto) 7.2 Lymph # (Auto) 1.9 [place] # (Auto) 0.7 Eos # (Auto) 0.5 Baso # (Auto) 0.1 Immature Gran # (Auto) 0.10 H Absolute Nucleated RBC 0.00 Immature Gran % 1 H Nucleated RBC % 0 Sodium 133 L Potassium 4.3 D Chloride 96 L Carbon Dioxide 26.2 Anion Gap 11 BUN 55 H Creatinine 2.7 H Estim Creat Clear Calc 21.8 L eGFR 18 L BUN/Creatinine Ratio 20 Glucose 122 H D Calculated Osmolality 282 Calcium 8.6 Phosphorus 4.9 Magnesium 1.9 Quality Measures Quality Measures VTE prophylaxis Advance care planning discussed with:: other Assessment & Plan Assessment Current Active Medications: Generic Name Dose Route Start Last Admin Trade Name Freq PRN Reason Stop Dose Admin Acetaminophen 650 mg 12/22/24 21:18 Acetaminophen 325 Mg Tablet PO 01/21/25 21:17 Q6H PRN PAIN 1- 10 OR FEVER > 100.4 Albuterol/Ipratropium 3 ml 12/23/24 14:00 Albuterol/Ipratropium (Duoneb) Rt Robina 3 Ml Nebu INH 01/22/25 05:59 TID PRN SHORTNESS OF BREATH Amlodipine Besylate 5 mg 12/24/24 10:01 12/24/24 11:52 Amlodipine Besylate 5 Mg Tablet PO 01/23/25 10:00 5 mg QDAY YOU Administration Dextrose 25 ml 12/22/24 22:20 Dextrose 50%-Water Inj 50 Ml Syringe IV 01/21/25 22:19 Q15MIN PRN BG 50-70 responsive npo pt Dextrose 50 ml 12/22/24 22:20 Dextrose 50%-Water Inj 50 Ml Syringe IV 01/21/25 22:19 Q15MIN PRN BG <50 OR BG <70 & pt unresponsive Glucagon 1 mg 12/22/24 22:20 Glucagon Inj 1 Mg Vial IM Q15MIN PRN BG <70, and no IV access Heparin Sodium (Porcine) 5,000 unit 12/22/24 22:00 12/24/24 13:57 Heparin Sod Inj 5000 Unit/Ml Vial SC 01/05/25 21:59 5,000 unit Q8HR YOU Administration Hydralazine HCl 10 mg 12/22/24 23:59 Hydralazine Inj 20 Mg/Ml Vial IVP 01/21/25 23:58 Q4H PRN SBP >180 or DBP >120 Bumetanide 20 mg/ IV 80 mls @ 8 mls/hr 12/24/24 08:50 12/24/24 09:41 Miscellaneous Supplies IV 12/25/24 04:49 2 mg/hr .Q10H YOU 8 mls/hr 2 MG/HR Administration Insulin Degludec 20 unit 12/24/24 09:00 12/24/24 08:45 Insulin Degludec 5 Unit/0.05 Ml (Per 5 Units) [place] 01/23/25 08:59 20 unit QDAY YOU Administration Insulin Human Lispro 0 unit 12/23/24 10:35 12/24/24 11:53 Insulin Lispro (Admelog) 1 Unit/0.01 Ml Unit [place] 01/22/25 07:29 2 unit ACHS YOU Administration Protocol Insulin Human Lispro 7 unit 12/23/24 11:30 12/24/24 11:52 Insulin Lispro (Admelog) 1 Unit/0.01 Ml Unit [place] 01/22/25 11:29 7 unit AC YOU Administration Ondansetron HCl 4 mg 12/22/24 21:18 Ondansetron Inj 2 Mg/Ml Inj 2 Ml IVP 01/21/25 21:17 Q6H PRN NAUSEA OR VOMITING Protocol Plan 69-year-old female history of CKD stage IV, insulin-dependent type 2 diabetes mellitus, hyperlipidemia, hypertension, presents with worsening shortness of breath and cough over the past 4 days, associated with increased bilateral lower extremity swelling. Patient admitted for possible new diagnosis of CHF, and JETHRO on CKD. #Acute on chronic HFpEF Shortness of breath and cough over the past 4 days, associated with increased bilateral lower extremity swelling. 2+ pitting edema bilaterally to shins today. Unable to lie flat; sleeps in a recliner. BNP 465 on admission CXR- mild CHF In ED patient received Lasix 120 mg IV Echo - EF 55-60% 12/23/24 I&O- down 3L on 12/24/24 Plan ? Bumex 2 mg/hr until fluid overload improves, then consider reducing diuresis ? Strict ROBBIE's ? Daily weights ? Fluid restriction 1.8 L - Follow up with cardiology outpatient #Hypertensive urgency #History of hypertension Highest blood pressure reading 186/78; end organ damage unclear due to previous CKD diagnosis According to patient takes valsartan and atenolol but cannot remember other BP meds Plan: Diurese as above Hydralazine 10mg Q4H PRN for SBP > 180 Amlodipine 5 daily #Sinus bradycardia Pulse 51 on admission; currently 63 Patient at home takes atenolol for blood pressure control Plan: Hold atenolol #Acute hypoxemic respiratory failure #JETHRO on CKD #History of CKD, stage IV #Hyponatremia, mild #Type 2 diabetes mellitus, [id number] #Hyperlipidemia #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 Miller. Carmine Tran, PGY1
[2024-12-25] VITALS (12 sets, daily range): BP systolic 140–168; BP diastolic 60–76; PULSE 58–70; RESP 14–19; TEMP 36.1–36.4; O2SAT 9–100; BMI 50.1
[2024-12-25] MEDS: HEPARIN SOD INJ 5000 UNIT/ML VIAL SC ×3 (05:31→20:40)
[2024-12-25 06:21] LABS: Basophils # (Auto) 0.1 Thou/mm3 (0.0-0.2); Basophils % (Auto) 1 % (0-2.5); Eosinophils # (Auto) 0.5 Thou/mm3 (0.0-0.5); Eosinophils % (Auto) 5 % (0-10); Hematocrit 31.5 % (36.0-46.0); Hemoglobin 10.5 g/dL (12.0-16.0); Immature Granulocytes Auto 0.08 Thou/mm3 (0.00-0.00); Lymphocytes # (Auto) 1.8 Thou/mm3 (1.0-4.8); Lymphocytes % (Auto) 19 % (10-50); Mean Corpuscular HGB Conc 33.3 g/dl (31.0-37.0); Mean Corpuscular Hemoglobin 28.1 pg (25.0-35.0); Mean Corpuscular Volume 84 fL (80-100); Monocytes # (Auto) 0.7 Thou/mm3 (0.0-0.8); Monocytes % (Auto) 8 % (0-12); Neutrophils # (Auto) 6.2 Thou/mm3 (1.8-7.7); Neutrophils % (Auto) 67 % (37-80); Nucleated Red Blood Cell # 0.00 Thou/mm3 (0.00-0.00); Nucleated Red Blood Cell % 0 /100 WBC (0); Platelet Count 260 Thou/mm3 (140-440); RDW Standard Deviation 45.4 fL (36.4-46.3); Red Blood Count 3.74 Miln/mm3 (4.00-5.20); White Blood Count 9.2 Thou/mm3 (3.6-11.0)
[2024-12-25 07:17] LABS: Anion Gap 10 (7-16); BUN/Creatinine Ratio 30 Ratio (12-20); Blood Urea Nitrogen 78 mg/dL (9-23); Calcium 8.6 mg/dL (8.3-10.6); Carbon Dioxide 31.5 mMol/L (20.0-31.0); Chloride 95 mMol/L (98-107); Creatinine (Component) 2.6 mg/dL (0.6-1.3); Estimated Creatinine Clearance 22.6 mL/min (>60); Glucose 143 mg/dL (74-106); Magnesium 1.8 mg/dL (1.6-2.6); Osmolality,Calculated 297 (275-295); Phosphorous 5.7 mg/dL (2.4-5.1); Potassium 4.5 mMol/L (3.4-5.1); Sodium 136 mMol/L (136-145); eGFR 19 See Note
[2024-12-25] MEDS: Magnesium Sulfate 2 GM Ivpb 2 GM/50 ML BAG IV (08:15)
[2024-12-25] MEDS: INSULIN DEGLUDEC 5 UNIT/0.05 ML (PER 5 UNITS) 20 UNIT SC (08:16)
[2024-12-25] MEDS: BUMETANIDE INJ 0.25 MG/ML VIAL 4 ML 2 MG IVP (08:16)
--- NOTE | 2024-12-25 09:43 | XR_ITS ---
Examination: Venous duplex lower extremity sonogram, bilateral. Date and time of exam: December 25, 2024, 1651 hours INDICATIONS: Bilateral leg swelling and abdominal swelling beginning 2 months ago Technique: Multiple sonographic images of the deep venous system have been obtained. B-mode/2-D grayscale imaging of vascular structures and Doppler spectral analysis (waveforms) and color performed Both legs are examined. Findings: Deep venous systems do not demonstrate abnormal echogenicity. All visualized deep veins exhibit compressibility. All visualized deep veins exhibit augmentation. Impression: Negative for deep vein thrombosis
[2024-12-25] MEDS: ALBUTEROL/IPRATROPIUM (Duoneb) RT SOL 3 ML NEBU INH (10:49)
--- NOTE | 2024-12-25 10:49 | ESPR_ITS ---
<Statement entered by Sorin Miller MD - 12/25/24 18:23> I personally evaluated and examined the patient this morning in telemetry floor with resident physician PGY [address] Tran. Patient clinically improved significantly good urine output though BUN/creatinine remains elevated CKD stage IV responding well to IV diuretic therapy so far no need for dialysis continues on Bumex drip for another day or 2. Agree with treatment plan recommendation as documented no further cardiac workup at this time Documentation for date of: 12/25/24 Subjective Subjective Interval history: Patient seen and examined at bedside; no acute events overnight. Is down 3.7L from yesterday; per patient, nephro wants to keep over weekend for additional diuresis. Exam Vital Signs Temp Pulse Resp BP Pulse Ox O2 Del Method O2 Flow Rate 97.0 F 64 19 161/69 H 97 Nasal Cannula 3 12/25/24 08:00 12/25/24 08:16 12/25/24 08:00 12/25/24 08:16 12/25/24 08:00 12/25/24 08:00 12/25/24 08:00 Narrative Exam General: A/O x3, no acute distress, well-nourished, well-developed, coulter catheter in Eyes: PERRL, EOMI. Anicteric, vision grossly intact. Ears: No ear pain, no ear discharge, Hearing grossly intact. Nose: No nasal discharge. Mouth/Throat: Moist mucous membranes, no redness, no lesions. Neck: Neck supple, non-tender, no cervical lymphadenopathy. Lungs: lung clear to auscultation, No accessory muscle use. Cardio: Normal S1/S2, regular rhythm, no murmurs, no JVD or carotid bruits. Abdomen: Soft, non-tender, no palpable masses, peristalsis present, no guarding or rebound. Extremities: Symmetrical, no significant deformities, 2+ peripheral edema to mid-cramer bilaterally , non-tender, peripheral pulses present. Skin: No rashes, no lesions, warm to touch. Neuro: No focal neurological deficits. Psych: Cooperative, appropriate mood and effect. Objective Labs 12/25/24 05:56 12/25/24 05:56 Labs: Laboratory Results - last 24 hr 12/25/24 05:56 WBC 9.2 RBC 3.74 L Hgb 10.5 L Hct 31.5 L MCV 84 MCH 28.1 MCHC 33.3 RDW Std Deviation 45.4 Plt Count 260 Neut % (Auto) 67 Lymph % (Auto) 19 [place] % (Auto) 8 Eos % (Auto) 5 Baso % (Auto) 1 Neut # (Auto) 6.2 Lymph # (Auto) 1.8 [place] # (Auto) 0.7 Eos # (Auto) 0.5 Baso # (Auto) 0.1 Immature Gran # (Auto) 0.08 H Absolute Nucleated RBC 0.00 Immature Gran % 1 H Nucleated RBC % 0 Sodium 136 Potassium 4.5 Chloride 95 L Carbon Dioxide 31.5 H Anion Gap 10 BUN 78 H Creatinine 2.6 H Estim Creat Clear Calc 22.6 L eGFR 19 L BUN/Creatinine Ratio 30 H Glucose 143 H Calculated Osmolality 297 H Calcium 8.6 Phosphorus 5.7 H Magnesium 1.8 Quality Measures Quality Measures VTE prophylaxis Advance care planning discussed with:: other Assessment & Plan Assessment Current Active Medications: Generic Name Dose Route Start Last Admin Trade Name Freq PRN Reason Stop Dose Admin Acetaminophen 650 mg 12/22/24 21:18 Acetaminophen 325 Mg Tablet PO 01/21/25 21:17 Q6H PRN PAIN 1- 10 OR FEVER > 100.4 Albuterol/Ipratropium 3 ml 12/23/24 14:00 Albuterol/Ipratropium (Duoneb) Rt Robina 3 Ml Nebu INH 01/22/25 05:59 TID PRN SHORTNESS OF BREATH Amlodipine Besylate 10 mg 12/26/24 09:00 Amlodipine Besylate 5 Mg Tablet PO 01/25/25 08:59 QDAY YOU Dextrose 25 ml 12/22/24 22:20 Dextrose 50%-Water Inj 50 Ml Syringe IV 01/21/25 22:19 Q15MIN PRN BG 50-70 responsive npo pt Dextrose 50 ml 12/22/24 22:20 Dextrose 50%-Water Inj 50 Ml Syringe IV 01/21/25 22:19 Q15MIN PRN BG <50 OR BG <70 & pt unresponsive Glucagon 1 mg 12/22/24 22:20 Glucagon Inj 1 Mg Vial IM Q15MIN PRN BG <70, and no IV access Heparin Sodium (Porcine) 5,000 unit 12/22/24 22:00 12/25/24 05:31 Heparin Sod Inj 5000 Unit/Ml Vial SC 01/05/25 21:59 5,000 unit Q8HR YOU Administration Hydralazine HCl 10 mg 12/22/24 23:59 Hydralazine Inj 20 Mg/Ml Vial IVP 01/21/25 23:58 Q4H PRN SBP >180 or DBP >120 Bumetanide 20 mg/ IV 80 mls @ 8 mls/hr 12/25/24 09:43 Miscellaneous Supplies IV 12/26/24 05:42 .Q10H YOU 2 MG/HR Insulin Degludec 20 unit 12/24/24 09:00 12/25/24 08:16 Insulin Degludec 5 Unit/0.05 Ml (Per 5 Units) [place] 01/23/25 08:59 20 unit QDAY YOU Administration Insulin Human Lispro 0 unit 12/23/24 10:35 12/25/24 07:55 Insulin Lispro (Admelog) 1 Unit/0.01 Ml Unit [place] 01/22/25 07:29 Not Given ACHS YOU Protocol Insulin Human Lispro 7 unit 12/23/24 11:30 12/25/24 07:55 Insulin Lispro (Admelog) 1 Unit/0.01 Ml Unit [place] 01/22/25 11:29 Not Given AC YOU Ondansetron HCl 4 mg 12/22/24 21:18 Ondansetron Inj 2 Mg/Ml Inj 2 Ml IVP 01/21/25 21:17 Q6H PRN NAUSEA OR VOMITING Protocol Plan 69-year-old female history of CKD stage IV, insulin-dependent type 2 diabetes mellitus, hyperlipidemia, hypertension, presents with worsening shortness of breath and cough over the past 4 days, associated with increased bilateral lower extremity swelling. Patient admitted for possible new diagnosis of CHF, and JETHRO on CKD. #Acute on chronic HFpEF Shortness of breath and cough over the past 4 days, associated with increased bilateral lower extremity swelling. 2+ pitting edema bilaterally to shins today. Unable to lie flat; sleeps in a recliner. BNP 465 on admission CXR- mild CHF In ED patient received Lasix 120 mg IV Echo - EF 55-60% 12/23/24 I&O- down 3L on 12/24/24 Plan ? Bumex 2 mg/hr until fluid overload improves, then consider reducing diuresis ? Strict ROBBIE's ? Daily weights ? Fluid restriction 1.8 L - Follow up with cardiology outpatient #Hypertensive urgency #History of hypertension Highest blood pressure reading 186/78; end organ damage unclear due to previous CKD diagnosis According to patient takes valsartan and atenolol but cannot remember other BP meds Plan: Diurese as above Hydralazine 10mg Q4H PRN for SBP > 180 Amlodipine 5 daily #Sinus bradycardia Pulse 51 on admission; currently 63 Patient at home takes atenolol for blood pressure control Plan: Hold atenolol #Acute hypoxemic respiratory failure #JETHRO on CKD #History of CKD, stage IV #Hyponatremia, mild #Type 2 diabetes mellitus, [id number] #Hyperlipidemia #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 Miller. Carmine Tran, PGY1
--- NOTE | 2024-12-25 11:04 | PD.RESPRO ---
Documentation for date of: 12/25/24 Subjective Subjective Interval history: Patient seen and examined at bedside, complains of mild shortness of breath otherwise has no current complaints. Patient net hospitalization negative is around -8 L. Patient continues to have significant edema, will continue with Bumex gtt. today. Patient was given 2 g of magnesium. Exam Vital Signs Temp Pulse Resp BP Pulse Ox O2 Del Method O2 Flow Rate 97.0 F 64 14 161/69 H 100 Nasal Cannula 3 12/25/24 08:00 12/25/24 10:50 12/25/24 10:50 12/25/24 08:16 12/25/24 10:50 12/25/24 08:00 12/25/24 10:50 Narrative Exam GENERAL: AOx3, no acute distress, laying down in bed HEENT: mucous membranes moist, bilateral sclera anicteric CARDIOVASCULAR: regular rate and rhythm, S1/S2 present, no murmurs appreciated PULMONARY: decreased breath sounds bilaterally improved ABDOMINAL: soft, non-tender, distended, mildly edematous, no rebound/guarding, bowel sounds present EXTREMITIES: 3+ BLE pitting edema hips SKIN: warm and dry NEURO: CN II-XII grossly intact, no focal deficits, alert, following commands Objective Labs 12/25/24 05:56 12/25/24 05:56 Labs: Laboratory Results - last 24 hr 12/25/24 05:56 WBC 9.2 RBC 3.74 L Hgb 10.5 L Hct 31.5 L MCV 84 MCH 28.1 MCHC 33.3 RDW Std Deviation 45.4 Plt Count 260 Neut % (Auto) 67 Lymph % (Auto) 19 [place] % (Auto) 8 Eos % (Auto) 5 Baso % (Auto) 1 Neut # (Auto) 6.2 Lymph # (Auto) 1.8 [place] # (Auto) 0.7 Eos # (Auto) 0.5 Baso # (Auto) 0.1 Immature Gran # (Auto) 0.08 H Absolute Nucleated RBC 0.00 Immature Gran % 1 H Nucleated RBC % 0 Sodium 136 Potassium 4.5 Chloride 95 L Carbon Dioxide 31.5 H Anion Gap 10 BUN 78 H Creatinine 2.6 H Estim Creat Clear Calc 22.6 L eGFR 19 L BUN/Creatinine Ratio 30 H Glucose 143 H Calculated Osmolality 297 H Calcium 8.6 Phosphorus 5.7 H Magnesium 1.8 Quality Measures Quality Measures VTE prophylaxis Advance care planning discussed with:: patient Assessment & Plan Assessment Current Active Medications: Generic Name Dose Route Start Last Admin Trade Name Freq PRN Reason Stop Dose Admin Acetaminophen 650 mg 12/22/24 21:18 Acetaminophen 325 Mg Tablet PO 01/21/25 21:17 Q6H PRN PAIN 1- 10 OR FEVER > 100.4 Albuterol/Ipratropium 3 ml 12/23/24 14:00 Albuterol/Ipratropium (Duoneb) Rt Robina 3 Ml Nebu INH 01/22/25 05:59 TID PRN SHORTNESS OF BREATH Amlodipine Besylate 10 mg 12/26/24 09:00 Amlodipine Besylate 5 Mg Tablet PO 01/25/25 08:59 QDAY YOU Dextrose 25 ml 12/22/24 22:20 Dextrose 50%-Water Inj 50 Ml Syringe IV 01/21/25 22:19 Q15MIN PRN BG 50-70 responsive npo pt Dextrose 50 ml 12/22/24 22:20 Dextrose 50%-Water Inj 50 Ml Syringe IV 01/21/25 22:19 Q15MIN PRN BG <50 OR BG <70 & pt unresponsive Glucagon 1 mg 12/22/24 22:20 Glucagon Inj 1 Mg Vial IM Q15MIN PRN BG <70, and no IV access Heparin Sodium (Porcine) 5,000 unit 12/22/24 22:00 12/25/24 05:31 Heparin Sod Inj 5000 Unit/Ml Vial SC 01/05/25 21:59 5,000 unit Q8HR YOU Administration Hydralazine HCl 10 mg 12/22/24 23:59 Hydralazine Inj 20 Mg/Ml Vial IVP 01/21/25 23:58 Q4H PRN SBP >180 or DBP >120 Bumetanide 20 mg/ IV 80 mls @ 8 mls/hr 12/25/24 09:43 Miscellaneous Supplies IV 12/26/24 05:42 .Q10H YOU 2 MG/HR Insulin Degludec 20 unit 12/24/24 09:00 12/25/24 08:16 Insulin Degludec 5 Unit/0.05 Ml (Per 5 Units) SC 01/23/25 08:59 20 unit QDAY YOU Administration Insulin Human Lispro 0 unit 12/23/24 10:35 12/25/24 07:55 Insulin Lispro (Admelog) 1 Unit/0.01 Ml Unit SC 01/22/25 07:29 Not Given ACHS YOU Protocol Insulin Human Lispro 7 unit 12/23/24 11:30 12/25/24 07:55 Insulin Lispro (Admelog) 1 Unit/0.01 Ml Unit SC 01/22/25 11:29 Not Given AC YOU Ondansetron HCl 4 mg 12/22/24 21:18 Ondansetron Inj 2 Mg/Ml Inj 2 Ml IVP 01/21/25 21:17 Q6H PRN NAUSEA OR VOMITING Protocol Plan Assessment and Plan: Summary: Ms Dietrich is a 69-year-old female history of CKD stage IV, insulin-dependent type 2 diabetes mellitus, hyperlipidemia, hypertension, presents with worsening shortness of breath and cough over the past 4 days, associated with increased bilateral lower extremity swelling. Patient admitted for fluid overload status. #Acute hypoxemic respiratory failure, likely secondary to volume overload In the setting of fluid overload, JETHRO on CKD versus new diagnosis of CHF. Admitted on 4 L of oxygen and saturating at 93%. CXR showed mild CHF. Bilateral peripheral pitting edema 2+ up to knees Worsening shortness of breath and cough over the past 4 days, associated with increased bilateral lower extremity swelling. She has been unable to lie flat and has been sleeping in a recliner for relief. Mentions with being heavy however has not measured herself. BNP 465 TTE showed LVEF 55-60%. Renal ultrasound showed significant right renal scar, no hydronephrosis Net hospitalization intake 4-6 0.8, output 11,960 net -7.699 L Plan ? Continue Bumex 2 mg/h GGT ? Reassess for diuresis tomorrow with nephrology/cardiology team ? Consult Building Maintenance Supervisor, Dr. Nuno, appreciate ongoing recs ? DuoNebs PRN ? Supp O2 as needed ? Fluid restriction 1.5 L ? Daily weight ? Strict intake and output #JETHRO on CKD - improving #History of CKD, stage IV DDx prerenal (CHF) versus intrarenal (ATN due to diabetes) versus postrenal (obstruction) Patient sees Dr. Will, a mechanical pencils assembler in [place], and was last seen 1.5 months ago. She is nearing the need for dialysis, however not there yet. Patient is making urine Creatinine on admission 3.2, unsure what the baseline is. eGFR 15 Echo showed LVEF 55-60%. Renal ultrasound showed significant right renal scar, no hydronephrosis 12/24: BUN and creatinine stay the same, still making urine, likely her baseline. Plan ? Nephrology consulted by ED provider, Dr. Nuno, see recs ? Avoid nephrotoxic agent ? Renally dose medications #Hypertensive urgency #History of hypertension Highest blood pressure reading 186/78. According to patient takes at least 3 blood pressure medications, mentions taking valsartan and atenolol but cannot remember others. Pending official med recs. 12/24 BP 165/64 Plan ? Hydralazine as needed ? Restart home amlodipine 5mg QD ? Hold home atenolol for now due to bradycardia #Sinus bradycardia, asymptomatic EKG showed sinus bradycardia, rate 51 bpm Patient at home takes atenolol for blood pressure control Plan ? Hold atenolol as not an appropriate medication for the patient #Type 2 diabetes mellitus, [id number] According to patient takes Lantus, Januvia, glipizide.? A1c 7.3.? Blood glucose on admission 310 12/24: BG 122, on ISS Plan ? 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 Emphasized importance of urgently getting evaluated in the outpatient setting # Hypervolemic hypovolemia, resolved Health Maintenance: Diet: Low carb consistent diet, fluid restriction 1.5 L, low protein, cardiac diet GI prophylaxis: None DVT prophylaxis: Heparin 5000 units SC every 8 hours Antibiotics: None CODE STATUS: DNR Disposition: Telemetry Case discussed with Attending Physician Dr. Lorraine Ovalles MD Internal Medicine PGY-2 Disclaimer: This note was dictated by speech recognition. Minor errors in gaming cashier may be present due to voice recognition software. Attending Provider Attestation/Addendum I, Lorraine Sandhu DO, attest that I was physically present for the miguel portions of the service and evaluated the patient with the resident and I reviewed and discussed the case with the resident and agree with the resident's findings and plans of care as documented above Patient seen and evaluated this AM. She states she is feeling well. No acute events overnight. She continues to have 2+ pitting edema. Bumex drip completed overnight, will restart drip due to persistent LE edema. Case was discussed with nephrology as well and agrees with plan. She is net negative >8L since admission. Will continue with daily weights and strict I's and O's. She remains on 1800mL fluid restriction.
--- NOTE | 2024-12-25 11:19 | PD.RESPRO ---
Documentation for date of: 12/25/24 Subjective Subjective Interval history: 69-year-old female history of CKD stage IV, insulin-dependent type 2 diabetes mellitus, hyperlipidemia, hypertension, presents with worsening shortness of breath and cough over the past 4 days, associated with increased bilateral lower extremity swelling. She has been unable to lie flat and has been sleeping in a recliner for relief. The patient denies chest pain, abdominal pain, or fever. She has no history of asthma but uses an inhaler as needed for bronchitis, which provides minimal relief. Additionally, she reports decreased urine output and burning with urination. She has a history of recurrent urinary tract infections over the past year and has open pressure ulcers on her buttocks, which make urination difficult. The patient lives with her and grandson, with the grandson being sick for over a week. Patient follows up with Dr. Will, a concrete curer in [place], and was last seen 1.5 months ago. She is nearing the need for dialysis. She took her Lasix today but has not noticed significant improvement in her symptoms. 12/23/24: Patient seen and examined at bedside. Patient reports discussion with concrete curer regarding possible dialysis. Has little support at home with busy grandchildren and with dementia and may have difficulty travelling to HD 3x/wk. At baseline walks using nearby structures to grab onto, has walker but does not use. Patient reports increased leg swelling, shortness of breath and abdominal distension prior to admission with decreased urine output and dysuria. Plan for Bumex drip 2 mg/hr for 10 hrs. Strict I&Os with coulter as burning on urination likely 2/2 minor buttock wounds as UA clean. Likely progressive CKD from HTN and DM to possible ESRD vs cardiorenal. 12/24/24: Patient seen and examined at bedside. Patient reports improved shortness of breath complains of diffuse aching likely secondary to volume removal as electrolytes are wnl. Mag repleted by primary team. Plan for IV Bumex drip 2 mg/hr for 10 hrs. recommend PT referral. 12/25/24: Patient seen examined at bedside. Patient reports improvement in shortness of breath but continued body aches due to fluid loss. With Bumex drip, patient output 5.4 L. Due to continued lower extremity edema will start Bumex drip again today. Exam Vital Signs Temp Pulse Resp BP Pulse Ox O2 Del Method O2 Flow Rate 97.0 F 64 14 161/69 H 100 Nasal Cannula 3 12/25/24 08:00 12/25/24 10:50 12/25/24 10:50 12/25/24 08:16 12/25/24 10:50 12/25/24 08:00 12/25/24 10:50 Narrative Exam GENERAL: AOx3, no acute distress, laying down in bed HEENT: mucous membranes moist, bilateral sclera anicteric CARDIOVASCULAR: regular rate and rhythm, S1/S2 present, no murmurs appreciated PULMONARY: decreased breath sounds bilaterally improved ABDOMINAL: soft, non-tender, distended, mildly edematous, no rebound/guarding, bowel sounds present EXTREMITIES: 3+ BLE pitting edema hips>BLE SKIN: warm and dry NEURO: CN II-XII grossly intact, no focal deficits, alert, following commands Objective Labs 12/26/24 04:27 12/26/24 04:27 Labs: Laboratory Results - last 24 hr 12/25/24 05:56 WBC 9.2 RBC 3.74 L Hgb 10.5 L Hct 31.5 L MCV 84 MCH 28.1 MCHC 33.3 RDW Std Deviation 45.4 Plt Count 260 Neut % (Auto) 67 Lymph % (Auto) 19 [place] % (Auto) 8 Eos % (Auto) 5 Baso % (Auto) 1 Neut # (Auto) 6.2 Lymph # (Auto) 1.8 [place] # (Auto) 0.7 Eos # (Auto) 0.5 Baso # (Auto) 0.1 Immature Gran # (Auto) 0.08 H Absolute Nucleated RBC 0.00 Immature Gran % 1 H Nucleated RBC % 0 Sodium 136 Potassium 4.5 Chloride 95 L Carbon Dioxide 31.5 H Anion Gap 10 BUN 78 H Creatinine 2.6 H Estim Creat Clear Calc 22.6 L eGFR 19 L BUN/Creatinine Ratio 30 H Glucose 143 H Calculated Osmolality 297 H Calcium 8.6 Phosphorus 5.7 H Magnesium 1.8 Quality Measures Quality Measures VTE prophylaxis Advance care planning discussed with:: patient Assessment & Plan Assessment Current Active Medications: Generic Name Dose Route Start Last Admin Trade Name Freq PRN Reason Stop Dose Admin Acetaminophen 650 mg 12/22/24 21:18 Acetaminophen 325 Mg Tablet PO 01/21/25 21:17 Q6H PRN PAIN 1- 10 OR FEVER > 100.4 Albuterol/Ipratropium 3 ml 12/23/24 14:00 Albuterol/Ipratropium (Duoneb) Rt Robina 3 Ml Nebu INH 01/22/25 05:59 TID PRN SHORTNESS OF BREATH Amlodipine Besylate 10 mg 12/26/24 09:00 Amlodipine Besylate 5 Mg Tablet PO 01/25/25 08:59 QDAY YOU Dextrose 25 ml 12/22/24 22:20 Dextrose 50%-Water Inj 50 Ml Syringe IV 01/21/25 22:19 Q15MIN PRN BG 50-70 responsive npo pt Dextrose 50 ml 12/22/24 22:20 Dextrose 50%-Water Inj 50 Ml Syringe IV 01/21/25 22:19 Q15MIN PRN BG <50 OR BG <70 & pt unresponsive Glucagon 1 mg 12/22/24 22:20 Glucagon Inj 1 Mg Vial IM Q15MIN PRN BG <70, and no IV access Heparin Sodium (Porcine) 5,000 unit 12/22/24 22:00 12/25/24 05:31 Heparin Sod Inj 5000 Unit/Ml Vial SC 01/05/25 21:59 5,000 unit Q8HR YOU Administration Hydralazine HCl 10 mg 12/22/24 23:59 Hydralazine Inj 20 Mg/Ml Vial IVP 01/21/25 23:58 Q4H PRN SBP >180 or DBP >120 Bumetanide 20 mg/ IV 80 mls @ 8 mls/hr 12/25/24 09:43 Miscellaneous Supplies IV 12/26/24 05:42 .Q10H YOU 2 MG/HR Insulin Degludec 20 unit 12/24/24 09:00 12/25/24 08:16 Insulin Degludec 5 Unit/0.05 Ml (Per 5 Units) SC 01/23/25 08:59 20 unit QDAY YOU Administration Insulin Human Lispro 0 unit 12/23/24 10:35 12/25/24 07:55 Insulin Lispro (Admelog) 1 Unit/0.01 Ml Unit [place] 01/22/25 07:29 Not Given ACHS [facility] Protocol Insulin Human Lispro 7 unit 12/23/24 11:30 12/25/24 07:55 Insulin Lispro (Admelog) 1 Unit/0.01 Ml Unit [place] 01/22/25 11:29 Not Given AC YOU Ondansetron HCl 4 mg 12/22/24 21:18 Ondansetron Inj 2 Mg/Ml Inj 2 Ml IVP 01/21/25 21:17 Q6H PRN NAUSEA OR VOMITING Protocol Plan Farideh Dietrich 69F pmhx significant for CKD stage IV, IDDM2, HTN, and HLD presents to [facility] ED 12/22 for worsening shortness of breath and significant edema, admitted for volume overload 2/2 HFpEF vs kidney failure. Nephrology consulted for JETHRO on CKDIV. #JETHRO on CKDIV Presented with anascarca without improvement on home PO Lasix. On admission Cr 3.2 and GFR 15. Patient sees Dr. Will and discussed possibly initiating dialysis soon. Unknown baseline Cr but last told GFR [address] Will. Renal US limited study due to body habitus. Bumex drip x2 12/23 and 12/24 with 5L output. Ddx: Likely progression of CKD to ESRD 2/2 longstandig hx of DM2 and HTN vs cardiorenal (HFpEF) Plan: - Bumex drip 2 mg/hr for 10 hrs again today - Monitor for kidney improvement, will contact Dr. Will - Strict I&Os, daily weights, 1.8L fluid restriction - Avoid nephrotoxins and renally dose #Hyponatremia, resolved Likely 2/2 hypervolemia and dilution vs CKD. 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 Plan of care discussed with attending Dr. Nuno. Yolette Lan, PGY-1 Internal Medicine Attending Provider Attestation/Addendum Patient seen and examined with resident physician Dr. Lan. Note reviewed, agree with findings and recommendations. Admitted with JETHRO, fluid overload. Diuretics helped with anasarca. Creatinine stable. Continue with Bumex drip.
[2024-12-25] MEDS: INSULIN LISPRO (AdmeLOG) 1 UNIT/0.01 ML UNIT 7 UNIT SC ×2 (11:52→17:16)
[2024-12-25] MEDS: INSULIN LISPRO (AdmeLOG) 1 UNIT/0.01 ML UNIT SC ×3 (11:52→20:40)
[2024-12-25] MEDS: BUMETANIDE INJ 20 MG in CONTAINER,EMPTY 50 ML 1 BAG 8 MG IV ×2 (11:53→20:42)
--- NOTE | 2024-12-25 16:29 | PC.SS ---
Rounding note: 1 more day, nephrology following.
[2024-12-26] VITALS (9 sets, daily range): BP systolic 124–167; BP diastolic 51–70; PULSE 60–82; RESP 15–22; TEMP 35.9–36.7; O2SAT 95–98; BMI 47.2
[2024-12-26 05:09] LABS: Basophils # (Auto) 0.1 Thou/mm3 (0.0-0.2); Basophils % (Auto) 1 % (0-2.5); Eosinophils # (Auto) 0.5 Thou/mm3 (0.0-0.5); Eosinophils % (Auto) 5 % (0-10); Hematocrit 31.1 % (36.0-46.0); Hemoglobin 10.3 g/dL (12.0-16.0); Immature Granulocytes Auto 0.06 Thou/mm3 (0.00-0.00); Lymphocytes # (Auto) 1.8 Thou/mm3 (1.0-4.8); Lymphocytes % (Auto) 19 % (10-50); Mean Corpuscular HGB Conc 33.1 g/dl (31.0-37.0); Mean Corpuscular Hemoglobin 27.8 pg (25.0-35.0); Mean Corpuscular Volume 84 fL (80-100); Monocytes # (Auto) 0.8 Thou/mm3 (0.0-0.8); Monocytes % (Auto) 8 % (0-12); Neutrophils # (Auto) 6.6 Thou/mm3 (1.8-7.7); Neutrophils % (Auto) 67 % (37-80); Nucleated Red Blood Cell # 0.00 Thou/mm3 (0.00-0.00); Nucleated Red Blood Cell % 0 /100 WBC (0); Platelet Count 269 Thou/mm3 (140-440); RDW Standard Deviation 45.4 fL (36.4-46.3); Red Blood Count 3.70 Miln/mm3 (4.00-5.20); White Blood Count 9.8 Thou/mm3 (3.6-11.0)
[2024-12-26] MEDS: HEPARIN SOD INJ 5000 UNIT/ML VIAL SC ×3 (05:18→21:13)
[2024-12-26 05:34] LABS: Anion Gap 10 (7-16); BUN/Creatinine Ratio 29 Ratio (12-20); Blood Urea Nitrogen 73 mg/dL (9-23); Calcium 9.1 mg/dL (8.3-10.6); Carbon Dioxide 32.1 mMol/L (20.0-31.0); Chloride 93 mMol/L (98-107); Creatinine (Component) 2.5 mg/dL (0.6-1.3); Estimated Creatinine Clearance 23.5 mL/min (>60); Glucose 219 mg/dL (74-106); Magnesium 2.0 mg/dL (1.6-2.6); Osmolality,Calculated 298 (275-295); Phosphorous 5.1 mg/dL (2.4-5.1); Potassium 4.1 mMol/L (3.4-5.1); Sodium 135 mMol/L (136-145); eGFR 20 See Note
--- NOTE | 2024-12-26 08:37 | ESPR_ITS ---
<Statement entered by Jeremías Crowell MD - 12/26/24 14:36> Patient seen and examined at bedside. I discussed and supervised with the planner internship physician who took care of this patient. I personally saw and examined the patient. I agree with most of the assessment and plan. Patient continues Bumex drip, net negative 9.5L for length of stay. Contraction alkalosis, consider Diamox tomorrow depending on labs. Slow improvement in kidney function. Plan of care discussed with attending Dr. Sandhu. Jeremías Crowell MD PGY-2 Documentation for date of: 12/26/24 Subjective Subjective Interval history: Attempted to wean off oxygen overnight unsuccessful, desat to 70%. Patient is back on 3L NC. Lower extremity DVT negative. Blood glucose is 219 today. Patient had sugarfree candies brought in by family. Requested patient to stop eating candies. Status post day 3 Bumex drip.?24hr urine output of 3.3 L. I&O -1.4L, not at goal. Kidney function's slowly improving. Continue Bumex drip 20mg again today. Exam Vital Signs Temp Pulse Resp BP Pulse Ox O2 Del Method O2 Flow Rate 97.2 F 64 19 157/70 H 95 Nasal Cannula 3 12/26/24 08:00 12/26/24 08:00 12/26/24 08:00 12/26/24 08:00 12/26/24 08:00 12/26/24 08:00 12/26/24 08:00 Narrative Exam GENERAL: AOx3, no acute distress, laying down in bed HEENT: mucous membranes moist, bilateral sclera anicteric CARDIOVASCULAR: regular rate and rhythm, S1/S2 present, no murmurs appreciated PULMONARY: decreased breath sounds bilaterally improved ABDOMINAL: soft, non-tender, distended, mildly edematous, no rebound/guarding, bowel sounds present EXTREMITIES: 3+ BLE pitting edema hips SKIN: warm and dry NEURO: CN II-XII grossly intact, no focal deficits, alert, following commands Objective Labs 12/26/24 04:27 12/26/24 04:27 Labs: Laboratory Results - last 24 hr 12/26/24 04:27 WBC 9.8 RBC 3.70 L Hgb 10.3 L Hct 31.1 L MCV 84 MCH 27.8 MCHC 33.1 RDW Std Deviation 45.4 Plt Count 269 Neut % (Auto) 67 Lymph % (Auto) 19 Yell % (Auto) 8 Eos % (Auto) 5 Baso % (Auto) 1 Neut # (Auto) 6.6 Lymph # (Auto) 1.8 Yell # (Auto) 0.8 Eos # (Auto) 0.5 Baso # (Auto) 0.1 Immature Gran # (Auto) 0.06 H Absolute Nucleated RBC 0.00 Immature Gran % 1 H Nucleated RBC % 0 Sodium 135 L Potassium 4.1 Chloride 93 L Carbon Dioxide 32.1 H Anion Gap 10 BUN 73 H Creatinine 2.5 H Estim Creat Clear Calc 23.5 L eGFR 20 L BUN/Creatinine Ratio 29 H Glucose 219 H D Calculated Osmolality 298 H Calcium 9.1 Phosphorus 5.1 Magnesium 2.0 Quality Measures Quality Measures VTE prophylaxis Advance care planning discussed with:: patient Assessment & Plan Assessment Current Active Medications: Generic Name Dose Route Start Last Admin Trade Name Freq PRN Reason Stop Dose Admin Acetaminophen 650 mg 12/22/24 21:18 Acetaminophen 325 Mg Tablet PO 01/21/25 21:17 Q6H PRN PAIN 1- 10 OR FEVER > 100.4 Albuterol/Ipratropium 3 ml 12/23/24 14:00 Albuterol/Ipratropium (Duoneb) Rt Robina 3 Ml Nebu INH 01/22/25 05:59 TID PRN SHORTNESS OF BREATH Amlodipine Besylate 10 mg 12/26/24 09:00 Amlodipine Besylate 5 Mg Tablet PO 01/25/25 08:59 QDAY YOU Dextrose 25 ml 12/22/24 22:20 Dextrose 50%-Water Inj 50 Ml Syringe IV 01/21/25 22:19 Q15MIN PRN BG 50-70 responsive npo pt Dextrose 50 ml 12/22/24 22:20 Dextrose 50%-Water Inj 50 Ml Syringe IV 01/21/25 22:19 Q15MIN PRN BG <50 OR BG <70 & pt unresponsive Glucagon 1 mg 12/22/24 22:20 Glucagon Inj 1 Mg Vial IM Q15MIN PRN BG <70, and no IV access Heparin Sodium (Porcine) 5,000 unit 12/22/24 22:00 12/26/24 05:18 Heparin Sod Inj 5000 Unit/Ml Vial SC 01/05/25 21:59 5,000 unit Q8HR YOU Administration Hydralazine HCl 10 mg 12/22/24 23:59 Hydralazine Inj 20 Mg/Ml Vial IVP 01/21/25 23:58 Q4H PRN SBP >180 or DBP >120 Magnesium Sulfate 2 gm in 50 mls @ 25 mls/hr 12/26/24 07:01 Magnesium Sulfate Ivpb IV 12/26/24 09:00 X1 ONE Insulin Degludec 20 unit 12/24/24 09:00 12/25/24 08:16 Insulin Degludec 5 Unit/0.05 Ml (Per 5 Units) SC 01/23/25 08:59 20 unit QDAY YOU Administration Insulin Human Lispro 0 unit 12/23/24 10:35 12/25/24 20:40 Insulin Lispro (Admelog) 1 Unit/0.01 Ml Unit SC 01/22/25 07:29 4 unit ACHS YOU Administration Protocol Insulin Human Lispro 7 unit 12/23/24 11:30 12/25/24 17:16 Insulin Lispro (Admelog) 1 Unit/0.01 Ml Unit SC 01/22/25 11:29 7 unit AC YOU Administration Ondansetron HCl 4 mg 12/22/24 21:18 Ondansetron Inj 2 Mg/Ml Inj 2 Ml IVP 01/21/25 21:17 Q6H PRN NAUSEA OR VOMITING Protocol Plan Summary: Ms Dietrich is a 69-year-old female history of CKD stage IV, insulin- dependent type 2 diabetes mellitus, hyperlipidemia, hypertension, presents with worsening shortness of breath and cough over the past 4 days, associated with increased bilateral lower extremity swelling. Patient admitted for fluid overload status. #Acute hypoxemic respiratory failure, likely secondary to volume overload In the setting of fluid overload, JETHRO on CKD versus new diagnosis of CHF. Admitted on 4 L of oxygen and saturating at 93%. CXR showed mild CHF. Bilateral peripheral pitting edema 2+ up to knees Worsening shortness of breath and cough over the past 4 days, associated with increased bilateral lower extremity swelling. She has been unable to lie flat and has been sleeping in a recliner for relief. Mentions with being heavy however has not measured herself. BNP 465 TTE showed LVEF 55-60%. Renal ultrasound showed significant right renal scar, no hydronephrosis Net hospitalization intake 4-6 0.8, output 11,960 net -7.699 L Plan ? Continue Bumex 2 mg/h GGT ? Reassess for diuresis tomorrow with nephrology/cardiology team ? Consult Development Coach, Dr. Nuno, appreciate ongoing recs ? DuoNebs PRN ? Supp O2 as needed ? Fluid restriction 1.5 L ? Daily weight ? Strict intake and output #JETHRO on CKD - improving #History of CKD, stage IV DDx prerenal (CHF) versus intrarenal (ATN due to diabetes) versus postrenal (obstruction) Patient sees Dr. Will, a rn coronary care unit in [place], and was last seen 1.5 months ago. She is nearing the need for dialysis, however not there yet. Patient is making urine Creatinine on admission 3.2, unsure what the baseline is. eGFR 15 Echo showed LVEF 55-60%. Renal ultrasound showed significant right renal scar, no hydronephrosis Plan ? Nephrology consulted by ED provider, Dr. Nuno, see recs ? Avoid nephrotoxic agent ? Renally dose medications #Hypertensive urgency #History of hypertension Highest blood pressure reading 186/78. According to patient takes at least 3 blood pressure medications, mentions taking valsartan and atenolol but cannot remember others. Pending official med recs. Plan ? Hydralazine as needed ? Continue amlodipine 10mg QD ? Hold home atenolol for now due to bradycardia #Sinus bradycardia, asymptomatic EKG showed sinus bradycardia, rate 51 bpm Patient at home takes atenolol for blood pressure control Plan ? Hold atenolol as not an appropriate medication for the patient #Type 2 diabetes mellitus, [id number] According to patient takes Lantus, Januvia, glipizide.? A1c 7.3.? Blood glucose on admission 310 Plan ? 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 Emphasized importance of urgently getting evaluated in the outpatient setting # Hypovolemia, resolved Health Maintenance: Diet: Low carb consistent diet, fluid restriction 1.5 L, low protein, cardiac diet GI prophylaxis: None DVT prophylaxis: Heparin 5000 units SC every 8 hours Antibiotics: None CODE STATUS: DNR Disposition: Telemetry Assessment and plan discussed with my attending physician Dr. Sandhu and Dr. Crowell (PGY-2). Dr. Oropeza (PGY-1) ? fixed income trading vice president Attending Provider Attestation/Addendum Lorraine Stevenson, , attest that I was physically present for the miguel portions of the service and evaluated the patient with the resident and I reviewed and discussed the case with the resident and agree with the resident's findings and plans of care as documented above Patient seen and eval this a.m. She states that she is feeling well. However, she is feeling more congested with her humidified nasal cannula. She remains on 3 L at this time. Will order fluticasone as patient states that she uses it as home for sinus congestion. Will also order albuterol HFA inhaler for bedside use. Lungs are otherwise clear to auscultation bilaterally. She continues to to have 2+ to 3+ pitting edema in bilateral lower extremities. continue with Bumex drip at this time. Patient is noted to have elevated blood sugars, also noted to have a lot of candy at her bedside this morning. Patient was counseled not to eat any candy since her sugars have been more elevated. Will continue with current insulin regimen if patient is able to stick with current diet and restrictions.
[2024-12-26] MEDS: Magnesium Sulfate 2 GM Ivpb 2 GM/50 ML BAG IV (08:39)
[2024-12-26] MEDS: INSULIN LISPRO (AdmeLOG) 1 UNIT/0.01 ML UNIT 7 UNIT SC ×3 (08:40→17:04)
[2024-12-26] MEDS: INSULIN LISPRO (AdmeLOG) 1 UNIT/0.01 ML UNIT SC ×4 (08:41→20:18)
[2024-12-26] MEDS: INSULIN DEGLUDEC 5 UNIT/0.05 ML (PER 5 UNITS) 20 UNIT SC (08:41)
--- NOTE | 2024-12-26 10:03 | ESPR_ITS ---
Documentation for date of: 12/26/24 Subjective Subjective Interval history: 69-year-old female history of CKD stage IV, insulin-dependent type 2 diabetes mellitus, hyperlipidemia, hypertension, presents with worsening shortness of breath and cough over the past 4 days, associated with increased bilateral lower extremity swelling. She has been unable to lie flat and has been sleeping in a recliner for relief. The patient denies chest pain, abdominal pain, or fever. She has no history of asthma but uses an inhaler as needed for bronchitis, which provides minimal relief. Additionally, she reports decreased urine output and burning with urination. She has a history of recurrent urinary tract infections over the past year and has open pressure ulcers on her buttocks, which make urination difficult. The patient lives with her and grandson, with the grandson being sick for over a week. Patient follows up with Dr. Will, a rehab trainer in [place], and was last seen 1.5 months ago. She is nearing the need for dialysis. She took her Lasix today but has not noticed significant improvement in her symptoms. 12/23/24: Patient seen and examined at bedside. Patient reports discussion with rehab trainer regarding possible dialysis. Has little support at home with busy grandchildren and with dementia and may have difficulty travelling to HD 3x/wk. At baseline walks using nearby structures to grab onto, has walker but does not use. Patient reports increased leg swelling, shortness of breath and abdominal distension prior to admission with decreased urine output and dysuria. Plan for Bumex drip 2 mg/hr for 10 hrs. Strict I&Os with coulter as burning on urination likely 2/2 minor buttock wounds as UA clean. Likely progressive CKD from HTN and DM to possible ESRD vs cardiorenal. 12/24/24: Patient seen and examined at bedside. Patient reports improved shortness of breath complains of diffuse aching likely secondary to volume removal as electrolytes are wnl. Mag repleted by primary team. Plan for IV Bumex drip 2 mg/hr for 10 hrs. recommend PT referral. 12/25/24: Patient seen examined at bedside. Patient reports improvement in shortness of breath but continued body aches due to fluid loss. With Bumex drip, patient output 5.4 L. Due to continued lower extremity edema will start Bumex drip again today. 12/26/2024: Patient seen and examined in telemetry. This morning she reports feeling well. Denies any SOB, chest pain and body pain. Ambulating to restroom with supplemental O2 via NC. Currently on Bumex infusion. Fluid balance of - 1400 cc in past 24 hours. Will order Flexeril 5 mg p.o. twice daily as needed for muscle cramps. Exam Vital Signs Temp Pulse Resp BP Pulse Ox O2 Del Method O2 Flow Rate 97.2 F 65 18 157/70 H 95 Nasal Cannula 3 12/26/24 08:00 12/26/24 09:24 12/26/24 09:24 12/26/24 08:39 12/26/24 09:24 12/26/24 08:00 12/26/24 09:24 Narrative Exam GENERAL: AOx3, no acute distress, sitting in chair HEENT: mucous membranes moist, bilateral sclera anicteric CARDIOVASCULAR: regular rate and rhythm, S1/S2 present, no murmurs appreciated PULMONARY: No obvious chest wall deformities. Bibasilar crackles auscultated ABDOMINAL: soft, non-tender, distended, mildly edematous, no rebound/guarding, bowel sounds present EXTREMITIES: 2+ BLE pitting edema hips SKIN: warm and dry NEURO: CN II-XII grossly intact, no focal deficits, alert, following commands Objective Labs 12/26/24 04:27 12/26/24 04:27 Labs: Laboratory Results - last 24 hr 12/26/24 04:27 WBC 9.8 RBC 3.70 L Hgb 10.3 L Hct 31.1 L MCV 84 MCH 27.8 MCHC 33.1 RDW Std Deviation 45.4 Plt Count 269 Neut % (Auto) 67 Lymph % (Auto) 19 [place] % (Auto) 8 Eos % (Auto) 5 Baso % (Auto) 1 Neut # (Auto) 6.6 Lymph # (Auto) 1.8 [place] # (Auto) 0.8 Eos # (Auto) 0.5 Baso # (Auto) 0.1 Immature Gran # (Auto) 0.06 H Absolute Nucleated RBC 0.00 Immature Gran % 1 H Nucleated RBC % 0 Sodium 135 L Potassium 4.1 Chloride 93 L Carbon Dioxide 32.1 H Anion Gap 10 BUN 73 H Creatinine 2.5 H Estim Creat Clear Calc 23.5 L eGFR 20 L BUN/Creatinine Ratio 29 H Glucose 219 H D Calculated Osmolality 298 H Calcium 9.1 Phosphorus 5.1 Magnesium 2.0 Quality Measures Quality Measures VTE prophylaxis Advance care planning discussed with:: patient Assessment & Plan Assessment Current Active Medications: Generic Name Dose Route Start Last Admin Trade Name Freq PRN Reason Stop Dose Admin Acetaminophen 650 mg 12/22/24 21:18 Acetaminophen 325 Mg Tablet PO 01/21/25 21:17 Q6H PRN PAIN 1- 10 OR FEVER > 100.4 Albuterol/Ipratropium 3 ml 12/23/24 14:00 Albuterol/Ipratropium (Duoneb) Rt Robina 3 Ml Nebu INH 01/22/25 05:59 TID PRN SHORTNESS OF BREATH Amlodipine Besylate 10 mg 12/26/24 09:00 12/26/24 08:39 Amlodipine Besylate 5 Mg Tablet PO 01/25/25 08:59 10 mg QDAY YOU Administration Dextrose 25 ml 12/22/24 22:20 Dextrose 50%-Water Inj 50 Ml Syringe IV 01/21/25 22:19 Q15MIN PRN BG 50-70 responsive npo pt Dextrose 50 ml 12/22/24 22:20 Dextrose 50%-Water Inj 50 Ml Syringe IV 01/21/25 22:19 Q15MIN PRN BG <50 OR BG <70 & pt unresponsive Glucagon 1 mg 12/22/24 22:20 Glucagon Inj 1 Mg Vial IM Q15MIN PRN BG <70, and no IV access Heparin Sodium (Porcine) 5,000 unit 12/22/24 22:00 12/26/24 05:18 Heparin Sod Inj 5000 Unit/Ml Vial SC 01/05/25 21:59 5,000 unit Q8HR YOU Administration Hydralazine HCl 10 mg 12/22/24 23:59 Hydralazine Inj 20 Mg/Ml Vial IVP 01/21/25 23:58 Q4H PRN SBP >180 or DBP >120 Bumetanide 20 mg/ IV 80 mls @ 8 mls/hr 12/26/24 08:44 Miscellaneous Supplies IV 12/27/24 04:43 .Q10H YOU 2 MG/HR Insulin Degludec 20 unit 12/24/24 09:00 12/26/24 08:41 Insulin Degludec 5 Unit/0.05 Ml (Per 5 Units) SC 01/23/25 08:59 20 unit QDAY YOU Administration Insulin Human Lispro 0 unit 12/23/24 10:35 12/26/24 08:41 Insulin Lispro (Admelog) 1 Unit/0.01 Ml Unit SC 01/22/25 07:29 3 unit ACHS YOU Administration Protocol Insulin Human Lispro 7 unit 12/23/24 11:30 12/26/24 08:40 Insulin Lispro (Admelog) 1 Unit/0.01 Ml Unit SC 01/22/25 11:29 7 unit AC YOU Administration Ondansetron HCl 4 mg 12/22/24 21:18 Ondansetron Inj 2 Mg/Ml Inj 2 Ml IVP 01/21/25 21:17 Q6H PRN NAUSEA OR VOMITING Protocol Sennosides 1 tab 12/26/24 08:48 Senna Tablet PO 01/25/25 08:47 QDAY PRN CONSTIPATION Protocol Plan Farideh Dietrihc 69F pmhx significant for CKD stage IV, IDDM2, HTN, and HLD presents to [facility] ED 12/22 for worsening shortness of breath and significant edema, admitted for volume overload 2/2 HFpEF vs kidney failure. Nephrology consulted for JETHRO on CKDIV. #JETHRO on CKDIV Presented with anascarca without improvement on home PO Lasix. On admission Cr 3.2 and GFR 15. Patient sees Dr. Will and discussed possibly initiating dialysis soon. Unknown baseline Cr but last told GFR [address] Will. Renal US limited study due to body habitus. Bumex drip x2 12/23 and 12/24 with 5L output. Ddx: Likely progression of CKD to ESRD 2/2 longstandig hx of DM2 and HTN vs cardiorenal (HFpEF) Plan: - Bumex drip 2 mg/hr for 10 hrs again today - Monitor for kidney improvement, will contact Dr. Will - Strict I&Os, daily weights, 1.8L fluid restriction - Avoid nephrotoxins and renally dose - No need for renal biopsy as CKD likely due to longstanding hypertension and diabetes as per her outpatient rehab trainer Dr. Will. - Currently no clear indication for initiation of hemodialysis at this point #Hyponatremia, resolving Likely 2/2 hypervolemia and dilution vs CKD. 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 Plan of care discussed with Attending Dr. Nurys Noel MD PGY 2 Disclaimer: This note was dictated by speech recognition. Minor errors in convention manager may be present due to voice recognition software. Attending Provider Attestation/Addendum Patient seen and examined with resident physician Dr. Lan. Note reviewed, agree with findings and recommendations. Admitted with JETHRO, fluid overload. BUN and creatinine slightly elevated. Continue with the Bumex drip. No need for dialysis. Spoke to Dr. Will
--- NOTE | 2024-12-26 10:58 | ESPR_ITS ---
<Statement entered by Sorin Miller MD - 12/31/24 17:32> I personally examined the patient evaluate the patient with resident physician PGY 1 Gee Tran and the patient is doing quite well now and proving with symptoms shortness of breath persisting mainly but less orthopnea today continues to have negative fluid balance patient is responding well in a day or 2 can be discharged to have further evaluation as an outpatient. For now patient is not requiring dialysis which is encouraging Documentation for date of: 12/26/24 Subjective Subjective Interval history: Patient seen and examined at bedside; no acute events overnight. Patient down 1.4L from yesterday. Counseled on weight loss to improve heart failure, kidney disease, and diabetes. Exam Vital Signs Temp Pulse Resp BP Pulse Ox O2 Del Method O2 Flow Rate 97.2 F 65 18 157/70 H 95 Nasal Cannula 3 12/26/24 08:00 12/26/24 09:24 12/26/24 09:24 12/26/24 08:39 12/26/24 09:24 12/26/24 08:00 12/26/24 09:24 Narrative Exam General: A/O x3, no acute distress, well-nourished, well-developed, coulter catheter in Eyes: PERRL, EOMI. Anicteric, vision grossly intact. Ears: No ear pain, no ear discharge, Hearing grossly intact. Nose: No nasal discharge. Mouth/Throat: Moist mucous membranes, no redness, no lesions. Neck: Neck supple, non-tender, no cervical lymphadenopathy. Lungs: lung clear to auscultation, No accessory muscle use. Cardio: Normal S1/S2, regular rhythm, no murmurs, no JVD or carotid bruits. Abdomen: Soft, non-tender, no palpable masses, peristalsis present, no guarding or rebound. Extremities: Symmetrical, no significant deformities, 2+ peripheral edema to mid-cramer bilaterally , non-tender, peripheral pulses present. Skin: No rashes, no lesions, warm to touch. Neuro: No focal neurological deficits. Psych: Cooperative, appropriate mood and effect. Objective Labs 12/26/24 04:27 12/26/24 04:27 Labs: Laboratory Results - last 24 hr 12/26/24 04:27 WBC 9.8 RBC 3.70 L Hgb 10.3 L Hct 31.1 L MCV 84 MCH 27.8 MCHC 33.1 RDW Std Deviation 45.4 Plt Count 269 Neut % (Auto) 67 Lymph % (Auto) 19 [place] % (Auto) 8 Eos % (Auto) 5 Baso % (Auto) 1 Neut # (Auto) 6.6 Lymph # (Auto) 1.8 [place] # (Auto) 0.8 Eos # (Auto) 0.5 Baso # (Auto) 0.1 Immature Gran # (Auto) 0.06 H Absolute Nucleated RBC 0.00 Immature Gran % 1 H Nucleated RBC % 0 Sodium 135 L Potassium 4.1 Chloride 93 L Carbon Dioxide 32.1 H Anion Gap 10 BUN 73 H Creatinine 2.5 H Estim Creat Clear Calc 23.5 L eGFR 20 L BUN/Creatinine Ratio 29 H Glucose 219 H D Calculated Osmolality 298 H Calcium 9.1 Phosphorus 5.1 Magnesium 2.0 Quality Measures Quality Measures VTE prophylaxis Advance care planning discussed with:: other Assessment & Plan Assessment Current Active Medications: Generic Name Dose Route Start Last Admin Trade Name Freq PRN Reason Stop Dose Admin Acetaminophen 650 mg 12/22/24 21:18 Acetaminophen 325 Mg Tablet PO 01/21/25 21:17 Q6H PRN PAIN 1- 10 OR FEVER > 100.4 Albuterol/Ipratropium 3 ml 12/23/24 14:00 Albuterol/Ipratropium (Duoneb) Rt Robina 3 Ml Nebu INH 01/22/25 05:59 TID PRN SHORTNESS OF BREATH Amlodipine Besylate 10 mg 12/26/24 09:00 12/26/24 08:39 Amlodipine Besylate 5 Mg Tablet PO 01/25/25 08:59 10 mg QDAY YOU Administration Dextrose 25 ml 12/22/24 22:20 Dextrose 50%-Water Inj 50 Ml Syringe IV 01/21/25 22:19 Q15MIN PRN BG 50-70 responsive npo pt Dextrose 50 ml 12/22/24 22:20 Dextrose 50%-Water Inj 50 Ml Syringe IV 01/21/25 22:19 Q15MIN PRN BG <50 OR BG <70 & pt unresponsive Glucagon 1 mg 12/22/24 22:20 Glucagon Inj 1 Mg Vial IM Q15MIN PRN BG <70, and no IV access Heparin Sodium (Porcine) 5,000 unit 12/22/24 22:00 12/26/24 05:18 Heparin Sod Inj 5000 Unit/Ml Vial SC 01/05/25 21:59 5,000 unit Q8HR YOU Administration Hydralazine HCl 10 mg 12/22/24 23:59 Hydralazine Inj 20 Mg/Ml Vial IVP 01/21/25 23:58 Q4H PRN SBP >180 or DBP >120 Bumetanide 20 mg/ IV 80 mls @ 8 mls/hr 12/26/24 08:44 Miscellaneous Supplies IV 12/27/24 04:43 .Q10H YOU 2 MG/HR Insulin Degludec 20 unit 12/24/24 09:00 12/26/24 08:41 Insulin Degludec 5 Unit/0.05 Ml (Per 5 Units) SC 01/23/25 08:59 20 unit QDAY YOU Administration Insulin Human Lispro 0 unit 12/23/24 10:35 12/26/24 08:41 Insulin Lispro (Admelog) 1 Unit/0.01 Ml Unit SC 01/22/25 07:29 3 unit ACHS YOU Administration Protocol Insulin Human Lispro 7 unit 12/23/24 11:30 12/26/24 08:40 Insulin Lispro (Admelog) 1 Unit/0.01 Ml Unit SC 01/22/25 11:29 7 unit AC YOU Administration Ondansetron HCl 4 mg 12/22/24 21:18 Ondansetron Inj 2 Mg/Ml Inj 2 Ml IVP 01/21/25 21:17 Q6H PRN NAUSEA OR VOMITING Protocol Sennosides 1 tab 12/26/24 08:48 Senna Tablet PO 01/25/25 08:47 QDAY PRN CONSTIPATION Protocol Plan 69-year-old female history of CKD stage IV, insulin-dependent type 2 diabetes mellitus, hyperlipidemia, hypertension, presents with worsening shortness of breath and cough over the past 4 days, associated with increased bilateral lower extremity swelling. Patient admitted for possible new diagnosis of CHF, and JETHRO on CKD. #Acute on chronic HFpEF Shortness of breath and cough over the past 4 days, associated with increased bilateral lower extremity swelling. 2+ pitting edema bilaterally to shins today. Unable to lie flat; sleeps in a recliner. BNP 465 on admission CXR- mild CHF In ED patient received Lasix 120 mg IV Echo - EF 55-60% 12/23/24 I&O- down 3L on 12/24/24 Plan ? Bumex 2 mg/hr until fluid overload improves, then consider reducing diuresis ? Strict ROBBIE's ? Daily weights ? Fluid restriction 1.8 L - Follow up with cardiology outpatient #Hypertensive urgency #History of hypertension Highest blood pressure reading 186/78; end organ damage unclear due to previous CKD diagnosis According to patient takes valsartan and atenolol but cannot remember other BP meds Plan: Diurese as above Hydralazine 10mg Q4H PRN for SBP > 180 Amlodipine 5 daily #Sinus bradycardia Pulse 51 on admission; currently 63 Patient at home takes atenolol for blood pressure control Plan: Hold atenolol #Acute hypoxemic respiratory failure #JETHRO on CKD #History of CKD, stage IV #Hyponatremia, mild #Type 2 diabetes mellitus, [id number] #Hyperlipidemia #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 Miller. Carmine Tran, PGY1
[2024-12-26] MEDS: BUMETANIDE INJ 20 MG in CONTAINER,EMPTY 50 ML 1 BAG 8 MG IV ×2 (12:03→20:19)
[2024-12-27] VITALS (9 sets, daily range): BP systolic 128–159; BP diastolic 67–89; PULSE 60–83; RESP 0–23; TEMP 36.2–36.6; O2SAT 94–99; BMI 46.1; BMI 13.0
[2024-12-27] MEDS: HEPARIN SOD INJ 5000 UNIT/ML VIAL SC ×3 (05:19→22:03)
[2024-12-27 05:36] LABS: Basophils # (Auto) 0.1 Thou/mm3 (0.0-0.2); Basophils % (Auto) 1 % (0-2.5); Eosinophils # (Auto) 0.6 Thou/mm3 (0.0-0.5); Eosinophils % (Auto) 7 % (0-10); Hematocrit 31.5 % (36.0-46.0); Hemoglobin 10.7 g/dL (12.0-16.0); Immature Granulocytes Auto 0.05 Thou/mm3 (0.00-0.00); Lymphocytes # (Auto) 1.5 Thou/mm3 (1.0-4.8); Lymphocytes % (Auto) 18 % (10-50); Mean Corpuscular HGB Conc 34.0 g/dl (31.0-37.0); Mean Corpuscular Hemoglobin 28.5 pg (25.0-35.0); Mean Corpuscular Volume 84 fL (80-100); Monocytes # (Auto) 0.6 Thou/mm3 (0.0-0.8); Monocytes % (Auto) 8 % (0-12); Neutrophils # (Auto) 5.5 Thou/mm3 (1.8-7.7); Neutrophils % (Auto) 66 % (37-80); Nucleated Red Blood Cell # 0.00 Thou/mm3 (0.00-0.00); Nucleated Red Blood Cell % 0 /100 WBC (0); Platelet Count 289 Thou/mm3 (140-440); RDW Standard Deviation 44.8 fL (36.4-46.3); Red Blood Count 3.76 Miln/mm3 (4.00-5.20); White Blood Count 8.4 Thou/mm3 (3.6-11.0)
[2024-12-27 06:01] LABS: Anion Gap 8 (7-16); BUN/Creatinine Ratio 34 Ratio (12-20); Blood Urea Nitrogen 75 mg/dL (9-23); Calcium 9.3 mg/dL (8.3-10.6); Carbon Dioxide 33.6 mMol/L (20.0-31.0); Chloride 92 mMol/L (98-107); Creatinine (Component) 2.2 mg/dL (0.6-1.3); Estimated Creatinine Clearance 25.8 mL/min (>60); Glucose 174 mg/dL (74-106); Magnesium 2.1 mg/dL (1.6-2.6); Osmolality,Calculated 294 (275-295); Phosphorous 5.6 mg/dL (2.4-5.1); Potassium 4.0 mMol/L (3.4-5.1); Sodium 134 mMol/L (136-145); eGFR 23 See Note
[2024-12-27] MEDS: INSULIN DEGLUDEC 5 UNIT/0.05 ML (PER 5 UNITS) 20 UNIT SC (07:59)
[2024-12-27] MEDS: INSULIN LISPRO (AdmeLOG) 1 UNIT/0.01 ML UNIT 7 UNIT SC ×3 (07:59→17:32)
--- NOTE | 2024-12-27 08:03 | PD.RESDS ---
Planned Discharge Date 12/27/24 DS: Providers Provider Date of admission: 12/22/24 21:18 Primary care physician: Physician No Primary/Family Admitting Provider: Stephane Wynne MD Attending Provider on Admission: Heather Goff MD Consults: 12/22/24 18:50 Consult to Nephrology Stat Comment: JETHRO on CKD, fluid overload Consulting Provider: Anmol Nuno 12/22/24 21:25 Referral OP Wound Healing Dept Stat Comment: Referral Physical Therapy Routine Comment: Physician Instructions: Referral Registered Dietitian Routine Comment: Referral Wound Care Stat Comment: 12/23/24 10:29 Consult to Cardiology Routine Comment: New onset CHF Consulting Provider: Sorin Miller Attending Provider on DC: MD Discharging Provider: Makayla Oropeza MD Hospital Course Hospital Course Hospital course: Attempted to wean off oxygen overnight unsuccessful, desat to 70%. Patient is back on 3L NC. Lower extremity DVT negative. Blood glucose is 219 today. Patient had sugarfree candies brought in by family. Requested patient to stop eating candies. Status post day 3 Bumex drip.?24hr urine output of 3.3 L. I&O -1.4L, not at goal. Kidney function's slowly improving. Continue Bumex drip 20mg again today. Time Spent with Patient Time attestation: Total time spent providing and/or coordinating discharge services: Exam Vital Signs Temp Pulse Resp BP Pulse Ox O2 Del Method O2 Flow Rate 97.4 F 71 12 159/75 H 98 Nasal Cannula 4 12/27/24 04:00 12/27/24 04:00 12/27/24 04:00 12/27/24 04:00 12/27/24 04:00 12/27/24 04:00 12/27/24 04:00 Discharge Plan Plan Patient Disposition: Xfer Skilled Nsg Fac (SNF) Patient condition on transfer: Stable Prescriptions/Referrals Prescriptions/Med Rec: New ipratropium-albuterol 0.5 mg-3 mg(2.5 mg base)/3 mL Solution For Nebulization 3 ml INH TID PRN (Reason: Shortness Of Breath) Qty: 0 0RF bumetanide 2 mg tablet 2 mg PO QDAY 30 Days Qty: 0 0RF insulin lispro 100 unit/mL Solution 7 unit SCi AC Qty: 0 0RF fluticasone propionate 50 mcg/actuation [place],Suspension 2 spray Nasally QDAY PRN (Reason: Nasal Congestion) Qty: 0 0RF cyclobenzaprine 5 mg Tablet 5 mg PO TID PRN (Reason: Muscle Spasms) Qty: 0 0RF insulin lispro 100 unit/mL Solution 0 sliding scale dose SCi ACHS Qty: 0 0RF sennosides [Senna Lax] 8.6 mg Tablet 8.6 mg PO QDAY PRN (Reason: Constipation) Qty: 0 0RF Continued amlodipine 5 mg Tablet 10 mg PO QDAY Qty: 30 atorvastatin 80 mg Tablet 80 mg PO QPM cinnamon bark [Cinnamon] 500 mg Capsule 500 mg PO BID aspirin 325 mg Tablet 325 mg PO QDAY Qty: 30 0RF insulin glargine [Lantus Solostar U-100 Insulin] 100 unit/mL (3 mL) insulin pen 20 unit subcut QPM cetirizine [24Hour Allergy] 10 mg tablet 10 mg PO QDAY PRN (Reason: allergy symptoms) Held atenolol 25 mg Tablet 25 mg PO QDAY Hold Instructions: Resume on 01/03/25. Follow up with PCP before resuming Rx Instructions: take in the evening Discontinued glipizide 10 mg Tablet 10 mg PO BID Januvia 100 mg Tablet 100 mg PO QDAY furosemide [Lasix] 40 mg tablet 40 mg PO QAM valsartan 80 mg tablet 80 mg PO PRN Rx Instructions: Qday as needed Referrals: No Primary/Family,Physician [Primary Care Provider] Sorin Miller MD [Physician, Cardiology] Anmol Nuno MD [Physician, Nephrology] Patient/Caregiver Discharge Instructions Discharge Activity: as per physical therapy Print Language: Serbian Stand Alone Forms: Amanda Award Info., Patient Portal Info Letter
--- NOTE | 2024-12-27 09:38 | PC.SS ---
Update: Plan is to d/c patient to SNF today. Authorization pending.
--- NOTE | 2024-12-27 09:41 | PD.NEPHPROG ---
Documentation for date of: 12/27/24 Subjective Subjective Interval history: 69-year-old female history of CKD stage IV, insulin-dependent type 2 diabetes mellitus, hyperlipidemia, hypertension, presents with worsening shortness of breath and cough over the past 4 days, associated with increased bilateral lower extremity swelling. She has been unable to lie flat and has been sleeping in a recliner for relief. The patient denies chest pain, abdominal pain, or fever. She has no history of asthma but uses an inhaler as needed for bronchitis, which provides minimal relief. Additionally, she reports decreased urine output and burning with urination. She has a history of recurrent urinary tract infections over the past year and has open pressure ulcers on her buttocks, which make urination difficult. The patient lives with her and grandson, with the grandson being sick for over a week. Patient follows up with Dr. Will, a psychometrist in [place], and was last seen 1.5 months ago. She is nearing the need for dialysis. She took her Lasix today but has not noticed significant improvement in her symptoms. 12/23/24: Patient seen and examined at bedside. Patient reports discussion with psychometrist regarding possible dialysis. Has little support at home with busy grandchildren and with dementia and may have difficulty travelling to HD 3x/wk. At baseline walks using nearby structures to grab onto, has walker but does not use. Patient reports increased leg swelling, shortness of breath and abdominal distension prior to admission with decreased urine output and dysuria. Plan for Bumex drip 2 mg/hr for 10 hrs. Strict I&Os with coulter as burning on urination likely 2/2 minor buttock wounds as UA clean. Likely progressive CKD from HTN and DM to possible ESRD vs cardiorenal. 12/24/24: Patient seen and examined at bedside. Patient reports improved shortness of breath complains of diffuse aching likely secondary to volume removal as electrolytes are wnl. Mag repleted by primary team. Plan for IV Bumex drip 2 mg/hr for 10 hrs. recommend PT referral. 12/25/24: Patient seen examined at bedside. Patient reports improvement in shortness of breath but continued body aches due to fluid loss. With Bumex drip, patient output 5.4 L. Due to continued lower extremity edema will start Bumex drip again today. 12/27/2024: Patient seen and examined in telemetry. This morning she reports feeling well. Denies any SOB, chest pain and body pain. Ambulating to restroom with supplemental O2 via NC. Patient can be discharged on p.o. Bumex fluid balance of -1400 cc in past 24 hours. Will order Flexeril 5 mg p.o. twice daily as needed for muscle cramps. Review of Systems Review of Systems Narrative Review of Systems: CONSTITUTIONAL: Patient denies any fever, chills. HEENT: Denies any visual disturbances or hearing problems. CARDIOVASCULAR: Patient denies any chest pain.improvement in shortness of breath, swelling in the lower extremities. PULMONARY: Shortness of breath better GASTROINTESTINAL: Patient denies any abdominal pain, constipation, nausea, vomiting, diarrhea. GENITOURINARY: Patient denies any urinary symptoms of burning or frequency or hematuria, denies any form in the urine. SKIN: Denies any rash. MUSCULOSKELETAL: Gait imbalance NEUROLOGICAL: Denies any neurological problems of strokes, seizures or confusion. Denies any memory problems. PSYCHIATRIC: Denies any depression or anxiety. LYMPHATICS : No lymphadenopathy Exam Vital Signs Temp Pulse Resp BP Pulse Ox O2 Del Method O2 Flow Rate 36.6 C 61 14 138/67 H 99 Nasal Cannula 4 12/27/24 08:00 12/27/24 08:00 12/27/24 08:00 12/27/24 08:00 12/27/24 08:00 12/27/24 08:00 12/27/24 08:00 Narrative Exam GENERAL: AOx3, no acute distress, sitting in chair HEENT: mucous membranes moist, bilateral sclera anicteric CARDIOVASCULAR: regular rate and rhythm, S1/S2 present, no murmurs appreciated PULMONARY: No obvious chest wall deformities. Bibasilar crackles auscultated ABDOMINAL: soft, non-tender, distended, mildly edematous, no rebound/guarding, bowel sounds present EXTREMITIES: 2+ BLE pitting edema hips SKIN: warm and dry NEURO: CN II-XII grossly intact, no focal deficits, alert, following commands Objective Labs 12/27/24 04:20 12/27/24 04:20 Labs: Laboratory Results - last 24 hr 12/27/24 04:20 WBC 8.4 RBC 3.76 L Hgb 10.7 L Hct 31.5 L MCV 84 MCH 28.5 MCHC 34.0 RDW Std Deviation 44.8 Plt Count 289 Neut % (Auto) 66 Lymph % (Auto) 18 [place] % (Auto) 8 Eos % (Auto) 7 Baso % (Auto) 1 Neut # (Auto) 5.5 Lymph # (Auto) 1.5 [place] # (Auto) 0.6 Eos # (Auto) 0.6 H Baso # (Auto) 0.1 Immature Gran # (Auto) 0.05 H Absolute Nucleated RBC 0.00 Immature Gran % 1 H Nucleated RBC % 0 Sodium 134 L Potassium 4.0 Chloride 92 L Carbon Dioxide 33.6 H Anion Gap 8 BUN 75 H Creatinine 2.2 H Estim Creat Clear Calc 25.8 L eGFR 23 L BUN/Creatinine Ratio 34 H Glucose 174 H Calculated Osmolality 294 Calcium 9.3 Phosphorus 5.6 H Magnesium 2.1 Assessment & Plan Additional Assessment & Plan Additional Plan: Farideh Dietrich 69F pmhx significant for CKD stage IV, IDDM2, HTN, and HLD presents to [facility] 12/22 for worsening shortness of breath and significant edema, admitted for volume overload 2/2 HFpEF vs kidney failure. Nephrology consulted for JTEHRO on CKDIV. #JETHRO on CKDIV Presented with anascarca without improvement on home PO Lasix. On admission Cr 3.2 and GFR 15. Patient sees Dr. Will and discussed possibly initiating dialysis soon. Unknown baseline Cr but last told GFR [address] Will. Renal US limited study due to body habitus. Bumex drip with significant amount of urine output Ddx: Likely progression of CKD to ESRD 2/2 longstandig hx of DM2 and HTN vs cardiorenal (HFpEF) Plan: - Patient can be transition to p.o. Bumex - Strict I&Os, daily weights, 1.8L fluid restriction - Avoid nephrotoxins and renally dose - No need for renal biopsy as CKD likely due to longstanding hypertension and diabetes as per her outpatient psychometrist Dr. Will. - Currently no clear indication for initiation of hemodialysis at this point #Hyponatremia, resolving Likely 2/2 hypervolemia and dilution vs CKD. 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
[2024-12-27] MEDS: BUMETANIDE INJ 0.25 MG/ML VIAL 4 ML 2 MG IVP (10:04)
[2024-12-27] MEDS: FLUTICASONE NAS SPRAY 0.05% 16 GM BTL 1 SPRAY NASAL (10:05)
[2024-12-27] MEDS: POLYETHYLENE GLYCOL 17 GM PACKET 34 GM PO (10:07)
[2024-12-27] MEDS: LACTULOSE SYRUP 20 GM/30 ML UDC PO (10:07)
--- NOTE | 2024-12-27 12:15 | PC.SS ---
Updated clinicals submitted to [facility] via [facility].
[2024-12-27] MEDS: OXYMETAZOLINE NAS SPRY 0.05% 15 ML BTL NASAL (12:40)
--- NOTE | 2024-12-27 15:18 | ESPR_ITS ---
<Statement entered by Geoffrey Henley MD - 12/28/24 15:47> Patient was seen and examined at bedside. I agree on the assessment and plan on this note as documented by resident Dr Makayla Oropeza DO PGY1. 69-year-old female with past medical history as below admitted for acute hypoxic respiratory failure secondary to volume overload, patient is net negative hospitalization 12.5 L, was started on Bumex 2 mg IV daily per nephrology recommendations, patient is pending authorization for [facility] facility and bowel movement, anticipate discharge in next 24 hours. Case discussed with attending Dr. Heather Henley MD PGY-2 Documentation for date of: 12/27/24 Subjective Subjective Interval history: Patient felt great today, able to move legs and not feel so heavy. Patient attributed it to not being on diuresis. Currently sat 99% on 2L NC. Reported congestion, will give oxymetazoline spray. Reported no BM since preadmission, still passing gas. Will escalate bowel regimen. Patient however, accepted everything else but enema. Plan to discharge to SNF tomorrow on bumex 2mg daily. Exam Vital Signs Temp Pulse Resp BP Pulse Ox O2 Del Method O2 Flow Rate 97.6 F 65 16 133/74 H 96 Nasal Cannula 4 12/27/24 12:00 12/27/24 12:00 12/27/24 12:00 12/27/24 12:00 12/27/24 12:00 12/27/24 12:00 12/27/24 12:00 Narrative Exam GENERAL: AOx3, no acute distress, laying down in bed HEENT: mucous membranes moist, bilateral sclera anicteric CARDIOVASCULAR: regular rate and rhythm, S1/S2 present, no murmurs appreciated PULMONARY: decreased breath sounds bilaterally improved ABDOMINAL: soft, non-tender, distended, mildly edematous, no rebound/guarding, bowel sounds present EXTREMITIES: 3+ BLE pitting edema hips SKIN: warm and dry NEURO: CN II-XII grossly intact, no focal deficits, alert, following commands Objective Labs 12/28/24 04:23 12/28/24 04:23 Labs: Laboratory Results - last 24 hr 12/27/24 04:20 WBC 8.4 RBC 3.76 L Hgb 10.7 L Hct 31.5 L MCV 84 MCH 28.5 MCHC 34.0 RDW Std Deviation 44.8 Plt Count 289 Neut % (Auto) 66 Lymph % (Auto) 18 [place] % (Auto) 8 Eos % (Auto) 7 Baso % (Auto) 1 Neut # (Auto) 5.5 Lymph # (Auto) 1.5 [place] # (Auto) 0.6 Eos # (Auto) 0.6 H Baso # (Auto) 0.1 Immature Gran # (Auto) 0.05 H Absolute Nucleated RBC 0.00 Immature Gran % 1 H Nucleated RBC % 0 Sodium 134 L Potassium 4.0 Chloride 92 L Carbon Dioxide 33.6 H Anion Gap 8 BUN 75 H Creatinine 2.2 H Estim Creat Clear Calc 25.8 L eGFR 23 L BUN/Creatinine Ratio 34 H Glucose 174 H Calculated Osmolality 294 Calcium 9.3 Phosphorus 5.6 H Magnesium 2.1 Quality Measures Quality Measures VTE prophylaxis Advance care planning discussed with:: patient Assessment & Plan Assessment Current Active Medications: Generic Name Dose Route Start Last Admin Trade Name Freq PRN Reason Stop Dose Admin Acetaminophen 650 mg 12/22/24 21:18 Acetaminophen 325 Mg Tablet PO 01/21/25 21:17 Q6H PRN PAIN 1- 10 OR FEVER > 100.4 Albuterol 2 puff 12/26/24 14:11 Albuterol Inh 8 Gm INH 01/25/25 14:10 Q4HR PRN SHORTNESS OF BREATH OR WHEEZE Amlodipine Besylate 10 mg 12/26/24 09:00 12/27/24 08:00 Amlodipine Besylate 5 Mg Tablet PO 01/25/25 08:59 10 mg QDAY YOU Administration Bumetanide 2 mg 12/27/24 09:00 12/27/24 10:04 Bumetanide Inj 0.25 Mg/Ml Vial 4 Ml IVP 01/26/25 08:59 2 mg QDAY YOU Administration Cyclobenzaprine HCl 5 mg 12/26/24 11:23 12/26/24 14:46 Cyclobenzaprine 5 Mg Tablet PO 01/25/25 11:22 5 mg TID PRN Administration MUSCLE SPASMS Dextrose 25 ml 12/22/24 22:20 Dextrose 50%-Water Inj 50 Ml Syringe IV 01/21/25 22:19 Q15MIN PRN BG 50-70 responsive npo pt Dextrose 50 ml 12/22/24 22:20 Dextrose 50%-Water Inj 50 Ml Syringe IV 01/21/25 22:19 Q15MIN PRN BG <50 OR BG <70 & pt unresponsive Fluticasone Propionate 1 spray 12/26/24 14:15 12/27/24 10:05 Fluticasone [place] 0.05% 16 Gm Btl NASAL 01/25/25 14:14 1 spray QDAY YOU Administration Glucagon 1 mg 12/22/24 22:20 Glucagon Inj 1 Mg Vial IM Q15MIN PRN BG <70, and no IV access Heparin Sodium (Porcine) 5,000 unit 12/22/24 22:00 12/27/24 14:54 Heparin Sod Inj 5000 Unit/Ml Vial SC 01/05/25 21:59 5,000 unit Q8HR YOU Administration Hydralazine HCl 10 mg 12/22/24 23:59 Hydralazine Inj 20 Mg/Ml Vial IVP 01/21/25 23:58 Q4H PRN SBP >180 or DBP >120 Insulin Degludec 20 unit 12/24/24 09:00 12/27/24 07:59 Insulin Degludec 5 Unit/0.05 Ml (Per 5 Units) SC 01/23/25 08:59 20 unit QDAY YOU Administration Insulin Human Lispro 0 unit 12/23/24 10:35 12/27/24 12:39 Insulin Lispro (Admelog) 1 Unit/0.01 Ml Unit SC 01/22/25 07:29 Not Given ACHS REPLACED BY [facility] Protocol Insulin Human Lispro 7 unit 12/23/24 11:30 12/27/24 12:39 Insulin Lispro (Admelog) 1 Unit/0.01 Ml Unit SC 01/22/25 11:29 7 unit AC YOU Administration Ondansetron HCl 4 mg 12/22/24 21:18 Ondansetron Inj 2 Mg/Ml Inj 2 Ml IVP 01/21/25 21:17 Q6H PRN NAUSEA OR VOMITING Protocol Oxymetazoline HCl 0 spray 12/27/24 09:41 12/27/24 12:40 Oxymetazoline [place] 0.05% 15 Ml Btl NASAL 01/26/25 20:59 2 spray Q12HR PRN Administration CONGESTION Polyethylene Glycol 34 gm 12/27/24 09:45 12/27/24 10:07 Polyethylene Glycol 17 Gm Packet PO 01/26/25 09:44 34 gm QDAY YOU Administration Sennosides 1 tab 12/26/24 08:48 Senna Tablet PO 01/25/25 08:47 QDAY PRN CONSTIPATION Protocol Plan Summary: Ms Dietrich is a 69-year-old female history of CKD stage IV, insulin- dependent type 2 diabetes mellitus, hyperlipidemia, hypertension, presents with worsening shortness of breath and cough over the past 4 days, associated with increased bilateral lower extremity swelling. Patient admitted for fluid overload status. #Acute hypoxemic respiratory failure, likely secondary to volume overload In the setting of fluid overload, JETHRO on CKD versus new diagnosis of CHF. Admitted on 4 L of oxygen and saturating at 93%. CXR showed mild CHF. Bilateral peripheral pitting edema 2+ up to knees Worsening shortness of breath and cough over the past 4 days, associated with increased bilateral lower extremity swelling. She has been unable to lie flat and has been sleeping in a recliner for relief. Mentions with being heavy however has not measured herself. BNP 465 TTE showed LVEF 55-60%. Renal ultrasound showed significant right renal scar, no hydronephrosis Net hospitalization -12.5L Plan ? Discharge on Bumex 2 mg QD ? DuoNebs PRN ? Supp O2 as needed ? Fluid restriction 1.5 L ? Daily weight ? Strict intake and output #JETHRO on CKD - improving #History of CKD, stage IV DDx prerenal (CHF) versus intrarenal (ATN due to diabetes) versus postrenal (obstruction) Patient sees Dr. Will, a clinic licensed practical nurse in [place], and was last seen 1.5 months ago. She is nearing the need for dialysis, however not there yet. Patient is making urine Creatinine on admission 3.2, unsure what the baseline is. eGFR 15 Echo showed LVEF 55-60%. Renal ultrasound showed significant right renal scar, no hydronephrosis Plan ? Nephrology consulted by ED provider, Dr. Nuno, see recs ? Avoid nephrotoxic agent ? Renally dose medications #Hypertensive urgency #History of hypertension Highest blood pressure reading 186/78. According to patient takes at least 3 blood pressure medications, mentions taking valsartan and atenolol but cannot remember others. Pending official med recs. Plan ? Hydralazine as needed ? Continue amlodipine 10mg QD ? Hold home atenolol for now due to bradycardia #Sinus bradycardia, asymptomatic EKG showed sinus bradycardia, rate 51 bpm Patient at home takes atenolol for blood pressure control Plan ? Hold atenolol as not an appropriate medication for the patient #Type 2 diabetes mellitus, [id number] According to patient takes Lantus, Januvia, glipizide.? A1c 7.3.? Blood glucose on admission 310 Plan ? 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 Emphasized importance of urgently getting evaluated in the outpatient setting # Hypovolemia, resolved Health Maintenance: Diet: Low carb consistent diet, fluid restriction 1.5 L, low protein, cardiac diet GI prophylaxis: None DVT prophylaxis: Heparin 5000 units SC every 8 hours Antibiotics: None CODE STATUS: DNR Disposition: Telemetry Assessment and plan discussed with my attending physician Dr. Goff and Dr. Henley (PGY-2). Dr. Oropeza (PGY-1) ? [employer] Attending Provider Attestation/Addendum I have seen and examined the patient. I was physically present for the miguel portions of the services provided including history, physical exam, diagnosis, treatment plans and orders. I agree with assessment and plan of care as documented by residents. Patient seen and examined at bedside this morning. Appears comfortable and denies any new complaints. Had 2983 cc of negative fluid balance over last 24 hours. Saturating well on 4 L nasal cannula. Kidney function continues to improve, BUN/creatinine 75/2.2 today. We will switch her Bumex gtt. to IV Bumex 2 mg daily. Patient has not had bowel movement for last 5 days, we will start her on bowel regimen. Awaiting bowel regimen before placement. Anticipate discharge in next 24 to 48 hours. Even though this this note was carefully revised there may still be minor errors in car greaser due to voice recognition software. Heather Goff MD
--- NOTE | 2024-12-27 15:52 | PC.SS ---
Rounding Note: Patient pending bowel movement. Plan is to D/C to SNF tomorrow.
--- NOTE | 2024-12-27 16:07 | PC.NURSE ---
enema cancelled by dr. shelley
--- NOTE | 2024-12-27 16:23 | ESPR_ITS ---
<Statement entered by Sorin Miller MD - 12/31/24 17:31> I personally evaluated examined the patient with PGY 2 Dr. Narciso Callaway. The patient appears to have HFpEF CKD volume overload improved with diuretic therapy continues to remain stable awaiting discharge she has no shortness of breath or chest pain continue medical management. Strongly recommended to follow weight reduction diet and will evaluate her following discharge within 4 to 6 weeks in my office.I agree with the treatment plan recommendation as documented by resident physician Documentation for date of: 12/27/24 Subjective Subjective Interval history: Patient seen and assessed in hospital bed denied having any concerning cardiac symptoms such as chest pain, shortness of breath, palpitations, orthopnea. On assessment, patient is on minimal supplemental oxygen but saturating 96%, as such consider weaning down oxygen and ambulating the patient to see if she was requiring oxygen. Patient safe to be discharged from cardiology standpoint with follow-up within the next month or so for HFpEF workup and management. Exam Vital Signs Temp Pulse Resp BP Pulse Ox O2 Del Method O2 Flow Rate 97.6 F 65 20 128/89 H 94 L Nasal Cannula 1 12/27/24 16:00 12/27/24 16:00 12/27/24 16:00 12/27/24 16:00 12/27/24 16:00 12/27/24 16:00 12/27/24 16:00 Narrative Exam General: A/O x3, no acute distress, well-nourished, well-developed, coulter catheter in Eyes: PERRL, EOMI. Anicteric, vision grossly intact. Ears: No ear pain, no ear discharge, Hearing grossly intact. Nose: No nasal discharge. Mouth/Throat: Moist mucous membranes, no redness, no lesions. Neck: Neck supple, non-tender, no cervical lymphadenopathy. Lungs: lung clear to auscultation, No accessory muscle use. Cardio: Normal S1/S2, regular rhythm, no murmurs, no JVD or carotid bruits. Abdomen: Soft, non-tender, no palpable masses, peristalsis present, no guarding or rebound. Extremities: Symmetrical, no significant deformities, 2+ peripheral edema to mid-cramer bilaterally , non-tender, peripheral pulses present. Skin: No rashes, no lesions, warm to touch. Neuro: No focal neurological deficits. Psych: Cooperative, appropriate mood and effect. Objective Labs 12/28/24 04:23 12/28/24 04:23 Labs: Laboratory Results - last 24 hr 12/27/24 04:20 WBC 8.4 RBC 3.76 L Hgb 10.7 L Hct 31.5 L MCV 84 MCH 28.5 MCHC 34.0 RDW Std Deviation 44.8 Plt Count 289 Neut % (Auto) 66 Lymph % (Auto) 18 [place]att % (Auto) 8 Eos % (Auto) 7 Baso % (Auto) 1 Neut # (Auto) 5.5 Lymph # (Auto) 1.5 Piatt # (Auto) 0.6 Eos # (Auto) 0.6 H Baso # (Auto) 0.1 Immature Gran # (Auto) 0.05 H Absolute Nucleated RBC 0.00 Immature Gran % 1 H Nucleated RBC % 0 Sodium 134 L Potassium 4.0 Chloride 92 L Carbon Dioxide 33.6 H Anion Gap 8 BUN 75 H Creatinine 2.2 H Estim Creat Clear Calc 25.8 L eGFR 23 L BUN/Creatinine Ratio 34 H Glucose 174 H Calculated Osmolality 294 Calcium 9.3 Phosphorus 5.6 H Magnesium 2.1 Quality Measures Quality Measures VTE prophylaxis Advance care planning discussed with:: patient Assessment & Plan Assessment Current Active Medications: Generic Name Dose Route Start Last Admin Trade Name Freq PRN Reason Stop Dose Admin Acetaminophen 650 mg 12/22/24 21:18 Acetaminophen 325 Mg Tablet PO 01/21/25 21:17 Q6H PRN PAIN 1- 10 OR FEVER > 100.4 Albuterol 2 puff 12/26/24 14:11 Albuterol Inh 8 Gm INH 01/25/25 14:10 Q4HR PRN SHORTNESS OF BREATH OR WHEEZE Amlodipine Besylate 10 mg 12/26/24 09:00 12/27/24 08:00 Amlodipine Besylate 5 Mg Tablet PO 01/25/25 08:59 10 mg QDAY YOU Administration Bumetanide 2 mg 12/27/24 09:00 12/27/24 10:04 Bumetanide Inj 0.25 Mg/Ml Vial 4 Ml IVP 01/26/25 08:59 2 mg QDAY YOU Administration Cyclobenzaprine HCl 5 mg 12/26/24 11:23 12/26/24 14:46 Cyclobenzaprine 5 Mg Tablet PO 01/25/25 11:22 5 mg TID PRN Administration MUSCLE SPASMS Dextrose 25 ml 12/22/24 22:20 Dextrose 50%-Water Inj 50 Ml Syringe IV 01/21/25 22:19 Q15MIN PRN BG 50-70 responsive npo pt Dextrose 50 ml 12/22/24 22:20 Dextrose 50%-Water Inj 50 Ml Syringe IV 01/21/25 22:19 Q15MIN PRN BG <50 OR BG <70 & pt unresponsive Fluticasone Propionate 1 spray 12/26/24 14:15 12/27/24 10:05 Fluticasone [place] 0.05% 16 Gm Btl NASAL 01/25/25 14:14 1 spray QDAY YOU Administration Glucagon 1 mg 12/22/24 22:20 Glucagon Inj 1 Mg Vial IM Q15MIN PRN BG <70, and no IV access Heparin Sodium (Porcine) 5,000 unit 12/22/24 22:00 12/27/24 14:54 Heparin Sod Inj 5000 Unit/Ml Vial SC 01/05/25 21:59 5,000 unit Q8HR YOU Administration Hydralazine HCl 10 mg 12/22/24 23:59 Hydralazine Inj 20 Mg/Ml Vial IVP 01/21/25 23:58 Q4H PRN SBP >180 or DBP >120 Insulin Degludec 20 unit 12/24/24 09:00 12/27/24 07:59 Insulin Degludec 5 Unit/0.05 Ml (Per 5 Units) PA 01/23/25 08:59 20 unit QDAY YOU Administration Insulin Human Lispro 0 unit 12/23/24 10:35 12/27/24 12:39 Insulin Lispro (Admelog) 1 Unit/0.01 Ml Unit PA 01/22/25 07:29 Not Given ACHS [facility] Protocol Insulin Human Lispro 7 unit 12/23/24 11:30 12/27/24 12:39 Insulin Lispro (Admelog) 1 Unit/0.01 Ml Unit PA 01/22/25 11:29 7 unit AC YOU Administration Ondansetron HCl 4 mg 12/22/24 21:18 Ondansetron Inj 2 Mg/Ml Inj 2 Ml IVP 01/21/25 21:17 Q6H PRN NAUSEA OR VOMITING Protocol Oxymetazoline HCl 0 spray 12/27/24 09:41 12/27/24 12:40 Oxymetazoline [place] 0.05% 15 Ml Btl NASAL 01/26/25 20:59 2 spray Q12HR PRN Administration CONGESTION Polyethylene Glycol 34 gm 12/27/24 09:45 12/27/24 10:07 Polyethylene Glycol 17 Gm Packet PO 01/26/25 09:44 34 gm QDAY YOU Administration Sennosides 1 tab 12/26/24 08:48 Senna Tablet PO 01/25/25 08:47 QDAY PRN CONSTIPATION Protocol Plan 69-year-old female history of CKD stage IV, insulin-dependent type 2 diabetes mellitus, hyperlipidemia, hypertension, presents with worsening shortness of breath and cough over the past 4 days, associated with increased bilateral lower extremity swelling. Patient admitted for possible new diagnosis of CHF, and JETHRO on CKD. #Acute on chronic HFpEF Shortness of breath and cough over the past 4 days, associated with increased bilateral lower extremity swelling. 2+ pitting edema bilaterally to shins today. Unable to lie flat; sleeps in a recliner. BNP 465 on admission CXR- mild CHF Tolerated and responded to diuretics appropriately with good urine output documented On minimal oxygen saturating 96+ Plan ? Transition to oral bumetanide ? Strict ROBBIE's ? Daily weights ? Fluid restriction 1.8 L - Follow up with cardiology outpatient #Hypertensive urgency #History of hypertension Highest blood pressure reading 186/78; end organ damage unclear due to previous CKD diagnosis According to patient takes valsartan and atenolol but cannot remember other BP meds Plan: Diurese as above Hydralazine 10mg Q4H PRN for SBP > 180 Amlodipine 5 daily #Sinus bradycardia Pulse 51 on admission; currently 63 Patient at home takes atenolol for blood pressure control Plan: Hold atenolol #Acute hypoxemic respiratory failure #JETHRO on CKD #History of CKD, stage IV #Hyponatremia, mild #Type 2 diabetes mellitus, [id number] #Hyperlipidemia #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 Paul Callaway, DO PGY-2 Internal Medicine - G[facility]
[2024-12-27] MEDS: INSULIN LISPRO (AdmeLOG) 1 UNIT/0.01 ML UNIT SC ×2 (17:31→22:05)
[2024-12-28] VITALS (8 sets, daily range): BP systolic 135–154; BP diastolic 61–72; PULSE 63–85; RESP 15–22; TEMP 36.4–36.7; O2SAT 92–96; BMI 47.2
[2024-12-28] MEDS: HEPARIN SOD INJ 5000 UNIT/ML VIAL SC (05:47)
[2024-12-28 06:12] LABS: Anion Gap 11 (7-16); BUN/Creatinine Ratio 33 Ratio (12-20); Basophils # (Auto) 0.1 Thou/mm3 (0.0-0.2); Basophils % (Auto) 1 % (0-2.5); Blood Urea Nitrogen 76 mg/dL (9-23); Calcium 9.2 mg/dL (8.3-10.6); Carbon Dioxide 35.1 mMol/L (20.0-31.0); Chloride 90 mMol/L (98-107); Creatinine (Component) 2.3 mg/dL (0.6-1.3); Eosinophils # (Auto) 0.5 Thou/mm3 (0.0-0.5); Eosinophils % (Auto) 5 % (0-10); Estimated Creatinine Clearance 24.6 mL/min (>60); Glucose 168 mg/dL (74-106); Hematocrit 32.0 % (36.0-46.0); Hemoglobin 10.8 g/dL (12.0-16.0); Immature Granulocytes Auto 0.04 Thou/mm3 (0.00-0.00); Lymphocytes # (Auto) 1.6 Thou/mm3 (1.0-4.8); Lymphocytes % (Auto) 17 % (10-50); Magnesium 2.0 mg/dL (1.6-2.6); Mean Corpuscular HGB Conc 33.8 g/dl (31.0-37.0); Mean Corpuscular Hemoglobin 28.8 pg (25.0-35.0); Mean Corpuscular Volume 85 fL (80-100); Monocytes # (Auto) 0.8 Thou/mm3 (0.0-0.8); Monocytes % (Auto) 8 % (0-12); Neutrophils # (Auto) 6.4 Thou/mm3 (1.8-7.7); Neutrophils % (Auto) 69 % (37-80); Nucleated Red Blood Cell # 0.00 Thou/mm3 (0.00-0.00); Nucleated Red Blood Cell % 0 /100 WBC (0); Osmolality,Calculated 298 (275-295); Phosphorous 5.1 mg/dL (2.4-5.1); Platelet Count 269 Thou/mm3 (140-440); Potassium 4.1 mMol/L (3.4-5.1); RDW Standard Deviation 45.1 fL (36.4-46.3); Red Blood Count 3.75 Miln/mm3 (4.00-5.20); Sodium 136 mMol/L (136-145); White Blood Count 9.2 Thou/mm3 (3.6-11.0); eGFR 22 See Note
--- NOTE | 2024-12-28 08:50 | PD.NEPHPROG ---
Documentation for date of: 12/28/24 Subjective Subjective Interval history: 69-year-old female history of CKD stage IV, insulin-dependent type 2 diabetes mellitus, hyperlipidemia, hypertension, presents with worsening shortness of breath and cough over the past 4 days, associated with increased bilateral lower extremity swelling. She has been unable to lie flat and has been sleeping in a recliner for relief. The patient denies chest pain, abdominal pain, or fever. She has no history of asthma but uses an inhaler as needed for bronchitis, which provides minimal relief. Additionally, she reports decreased urine output and burning with urination. She has a history of recurrent urinary tract infections over the past year and has open pressure ulcers on her buttocks, which make urination difficult. The patient lives with her and grandson, with the grandson being sick for over a week. Patient follows up with Dr. Will, a stamp press operator in [place], and was last seen 1.5 months ago. She is nearing the need for dialysis. She took her Lasix today but has not noticed significant improvement in her symptoms. 12/23/24: Patient seen and examined at bedside. Patient reports discussion with stamp press operator regarding possible dialysis. Has little support at home with busy grandchildren and with dementia and may have difficulty travelling to HD 3x/wk. At baseline walks using nearby structures to grab onto, has walker but does not use. Patient reports increased leg swelling, shortness of breath and abdominal distension prior to admission with decreased urine output and dysuria. Plan for Bumex drip 2 mg/hr for 10 hrs. Strict I&Os with coulter as burning on urination likely 2/2 minor buttock wounds as UA clean. Likely progressive CKD from HTN and DM to possible ESRD vs cardiorenal. 12/24/24: Patient seen and examined at bedside. Patient reports improved shortness of breath complains of diffuse aching likely secondary to volume removal as electrolytes are wnl. Mag repleted by primary team. Plan for IV Bumex drip 2 mg/hr for 10 hrs. recommend PT referral. 12/25/24: Patient seen examined at bedside. Patient reports improvement in shortness of breath but continued body aches due to fluid loss. With Bumex drip, patient output 5.4 L. Due to continued lower extremity edema will start Bumex drip again today. 12/28/2024: Patient seen and examined in medical floor this morning she reports feeling well. Denies any SOB, chest pain and body pain. Ambulating to restroom with supplemental O2 via NC. Patient can be discharged on p.o. Bumex fluid balance of -1400 cc in past 24 hours. Will order Flexeril 5 mg p.o. twice daily as needed for muscle cramps. Patient will be discharged to rehab today Review of Systems Review of Systems Narrative Review of Systems: CONSTITUTIONAL: Patient denies any fever, chills. HEENT: Denies any visual disturbances or hearing problems. CARDIOVASCULAR: Patient denies any chest pain.improvement in shortness of breath, swelling in the lower extremities. PULMONARY: Shortness of breath better GASTROINTESTINAL: Patient denies any abdominal pain, constipation, nausea, vomiting, diarrhea. GENITOURINARY: Patient denies any urinary symptoms of burning or frequency or hematuria, denies any form in the urine. SKIN: Denies any rash. MUSCULOSKELETAL: Gait imbalance NEUROLOGICAL: Denies any neurological problems of strokes, seizures or confusion. Denies any memory problems. PSYCHIATRIC: Denies any depression or anxiety. LYMPHATICS : No lymphadenopathy Exam Vital Signs Temp Pulse Resp BP Pulse Ox O2 Del Method O2 Flow Rate 36.4 C 85 16 137/66 H 96 Room Air 2 12/28/24 16:00 12/28/24 16:00 12/28/24 16:00 12/28/24 16:00 12/28/24 16:00 12/28/24 16:00 12/28/24 07:44 Narrative Exam GENERAL: AOx3, no acute distress, sitting in chair HEENT: mucous membranes moist, bilateral sclera anicteric CARDIOVASCULAR: regular rate and rhythm, S1/S2 present, no murmurs appreciated PULMONARY: No obvious chest wall deformities. Bibasilar crackles auscultated ABDOMINAL: soft, non-tender, distended, mildly edematous, no rebound/guarding, bowel sounds present EXTREMITIES: 2+ BLE pitting edema hips SKIN: warm and dry NEURO: CN II-XII grossly intact, no focal deficits, alert, following commands Objective Labs 12/28/24 04:23 12/28/24 04:23 Labs: Laboratory Results - last 24 hr 12/28/24 04:23 WBC 9.2 RBC 3.75 L Hgb 10.8 L Hct 32.0 L MCV 85 MCH 28.8 MCHC 33.8 RDW Std Deviation 45.1 Plt Count 269 Neut % (Auto) 69 Lymph % (Auto) 17 [place] % (Auto) 8 Eos % (Auto) 5 Baso % (Auto) 1 Neut # (Auto) 6.4 Lymph # (Auto) 1.6 [place] # (Auto) 0.8 Eos # (Auto) 0.5 Baso # (Auto) 0.1 Immature Gran # (Auto) 0.04 H Absolute Nucleated RBC 0.00 Immature Gran % 0 Nucleated RBC % 0 Sodium 136 Potassium 4.1 Chloride 90 L Carbon Dioxide 35.1 H Anion Gap 11 BUN 76 H Creatinine 2.3 H Estim Creat Clear Calc 24.6 L eGFR 22 L BUN/Creatinine Ratio 33 H Glucose 168 H Calculated Osmolality 298 H Calcium 9.2 Phosphorus 5.1 Magnesium 2.0 Assessment & Plan Additional Assessment & Plan Additional Plan: Farideh Dietrich 69F pmhx significant for CKD stage IV, IDDM2, HTN, and HLD presents to [facility] ED 12/22 for worsening shortness of breath and significant edema, admitted for volume overload 2/2 HFpEF vs kidney failure. Nephrology consulted for JETHRO on CKDIV. #JETHRO on CKDIV Presented with anascarca without improvement on home PO Lasix. On admission Cr 3.2 and GFR 15. Patient sees Dr. Will and discussed possibly initiating dialysis soon. Unknown baseline Cr but last told GFR [address]. Renal US limited study due to body habitus. Bumex drip with significant amount of urine output Ddx: Likely progression of CKD to ESRD 2/2 longstandig hx of DM2 and HTN vs cardiorenal (HFpEF) Plan: - Patient can be transition to p.o. Bumex - Strict I&Os, daily weights, 1.8L fluid restriction - Avoid nephrotoxins and renally dose - No need for renal biopsy as CKD likely due to longstanding hypertension and diabetes as per her outpatient stamp press operator Dr. Will. - Currently no clear indication for initiation of hemodialysis at this point #Hyponatremia, resolving Likely 2/2 hypervolemia and dilution vs CKD. 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
[2024-12-28] MEDS: POLYETHYLENE GLYCOL 17 GM PACKET 34 GM PO (09:18)
[2024-12-28] MEDS: BUMETANIDE INJ 0.25 MG/ML VIAL 4 ML 2 MG IVP (09:19)
[2024-12-28] MEDS: INSULIN DEGLUDEC 5 UNIT/0.05 ML (PER 5 UNITS) 20 UNIT SC (09:20)
--- NOTE | 2024-12-28 09:42 | PC.SS ---
Addendum entered by Ana Douglas 12/28/24 13:55: SS was notified by Nohemi from [facility] insurance authorization has been obtained. Nohemi from [facility] has arranged for their transportation company to scrap picker pt at 3:30pm. Bedside nurse, Farideh is aware Original Note: SS spoke to Nohemi from [facility] who explained she has made contact with patient's health insurance and was informed to call back after 3 hours and inquiry is still under review. SS called [phone] (patient's health insurance)and spoke to Le who then transferred SS to Angeli [phone] from the skilled team. Angeli transferred call to Nohemi Carmona from [facility] [phone]. Nohemi Carmona explained they have received insurance request from [facility] and inquiry is still under review.
[2024-12-28] MEDS: INSULIN LISPRO (AdmeLOG) 1 UNIT/0.01 ML UNIT 7 UNIT SC (11:14)
[2024-12-28] MEDS: INSULIN LISPRO (AdmeLOG) 1 UNIT/0.01 ML UNIT SC (11:14)
--- NOTE | 2024-12-28 15:49 | ESDS_ITS ---
<Statement entered by Jeremías Crowell MD - 12/28/24 16:04> Patient seen and examined at bedside. I discussed and supervised with the materials intern physician who took care of this patient. I personally saw and examined the patient. I agree with most of the assessment and plan. Plan of care discussed with attending Dr. Goff. Jeremías Crowell MD PGY-2 Planned Discharge Date 12/28/24 DS: Providers Provider Date of admission: 12/22/24 21:18 Primary care physician: Physician No Primary/Family Admitting Provider: Stephane Wynne MD Attending Provider on Admission: Heather Goff MD Consults: 12/22/24 18:50 Consult to Nephrology Stat Comment: JETHRO on CKD, fluid overload Consulting Provider: Anmol Nuno 12/22/24 21:25 Referral OP Wound Healing Dept Stat Comment: Referral Physical Therapy Routine Comment: Physician Instructions: Referral Registered Dietitian Routine Comment: Referral Wound Care Stat Comment: 12/23/24 10:29 Consult to Cardiology Routine Comment: New onset CHF Consulting Provider: Sorin Miller Attending Provider on DC: Heather Goff MD Discharging Provider: Makayla Oropeza MD DS: Diagnosis Problem List Completed Was Problem List Reviewed/Reconciled?: Yes Hospital Course Hospital Course Hospital course: 68-year-old female with past medical history of CKD stage IV, insulin?dependent type 2 diabetes, hyperlipidemia, hypertension presented with worsening shortness of breath, cough, bilateral lower extremity swelling x 4 days.? Admitted for AHRF secondary to volume overload, new onset CHF, JETHRO on CKD. ?In ED, escalator attendant was consulted, started IV diuretics.? In hospital, patient improved significantly on Bumex drip. Changes was made for patient to go home with Bumex 2 mg daily instead of Lasix 40 daily. Pre Press Operator was consulted for new onset CHF. Patient is stable and medically clear for discharge.? Instructions to foll ow-up with specialist outpatient.? Return precautions given. #Acute hypoxemic respiratory failure, likely secondary to volume overload #JETHRO on CKD #History of CKD, stage IV #Hypertensive urgency #History of hypertension #Sinus bradycardia #Type 2 diabetes mellitus, [id number] #Hyperlipidemia #Hypervolemia Instruction: - You have been started on Bumex 2 mg daily, stop your Lasix. - We have adjusted your diabetes regimen, stop januvia and glipizide, take glargine 20 units QPM and 7 units lispro AC with SSI as needed - Hold Atenolol, follow up with plumber gasfitter before resuming. - Other medications as below - Follow up with nephrology and cardiology outpatient in 1 week. - Follow up with PCP in 1 week. - Return to ED if your symptoms worsen Assessment and plan discussed with my attending physician Dr. Goff and Dr. Crowell (PGY-2). Dr. Oropeza (PGY-1) ? president and cmo Status at Discharge Overall status at discharge: patient is back to baseline Time Spent with Patient Time attestation: Total time spent providing and/or coordinating discharge services: 38 minutes Time spent: Greater than 30 minutes Exam Vital Signs Temp Pulse Resp BP Pulse Ox O2 Del Method O2 Flow Rate 97.9 F 77 16 154/62 H 96 Room Air 2 12/28/24 12:00 12/28/24 12:00 12/28/24 12:00 12/28/24 12:00 12/28/24 12:00 12/28/24 12:00 12/28/24 07:44 Narrative Exam GENERAL: AOx3, no acute distress, laying down in bed HEENT: mucous membranes moist, bilateral sclera anicteric CARDIOVASCULAR: regular rate and rhythm, S1/S2 present, no murmurs appreciated PULMONARY: decreased breath sounds bilaterally improved ABDOMINAL: soft, non-tender, distended, mildly edematous, no rebound/guarding, bowel sounds present EXTREMITIES: 1+ BLE pitting edema L>R SKIN: warm and dry NEURO: CN II-XII grossly intact, no focal deficits, alert, following commands Discharge Plan Plan Patient Disposition: Xfer Skilled Nsg Fac (SNF) Patient condition on transfer: Stable Care Plan Goals: - You have been started on Bumex 2 mg daily, stop your Lasix. - We have adjusted your diabetes regimen, stop januvia and glipizide, take glargine 20 units QPM and 7 units lispro AC with SSI as needed - Hold Atenolol, follow up with plumber gasfitter before resuming. - Other medications as below - Follow up with nephrology and cardiology outpatient in 1 week. - Follow up with PCP in 1 week. - Return to ED if your symptoms worsen Prescriptions/Referrals Prescriptions/Med Rec: New ipratropium-albuterol 0.5 mg-3 mg(2.5 mg base)/3 mL Solution For Nebulization 3 ml INH TID PRN (Reason: Shortness Of Breath) Qty: 0 0RF bumetanide 2 mg tablet 2 mg PO QDAY 30 Days Qty: 0 0RF insulin lispro 100 unit/mL Solution 7 unit SCi AC Qty: 0 0RF fluticasone propionate 50 mcg/actuation Stanley,Suspension 2 spray Nasally QDAY PRN (Reason: Nasal Congestion) Qty: 0 0RF cyclobenzaprine 5 mg Tablet 5 mg PO TID PRN (Reason: Muscle Spasms) Qty: 0 0RF insulin lispro 100 unit/mL Solution 0 sliding scale dose SCi ACHS Qty: 0 0RF sennosides [Senna Lax] 8.6 mg Tablet 8.6 mg PO QDAY PRN (Reason: Constipation) Qty: 0 0RF Continued amlodipine 5 mg Tablet 10 mg PO QDAY Qty: 30 atorvastatin 80 mg Tablet 80 mg PO QPM cinnamon bark [Cinnamon] 500 mg Capsule 500 mg PO BID aspirin 325 mg Tablet 325 mg PO QDAY Qty: 30 0RF insulin glargine [Lantus Solostar U-100 Insulin] 100 unit/mL (3 mL) insulin pen 20 unit subcut QPM cetirizine [24Hour Allergy] 10 mg tablet 10 mg PO QDAY PRN (Reason: allergy symptoms) Held atenolol 25 mg Tablet 25 mg PO QDAY Hold Instructions: Resume on 01/03/25. Follow up with PCP before resuming Rx Instructions: take in the evening Discontinued glipizide 10 mg Tablet 10 mg PO BID Januvia 100 mg Tablet 100 mg PO QDAY furosemide [Lasix] 40 mg tablet 40 mg PO QAM valsartan 80 mg tablet 80 mg PO PRN Rx Instructions: Qday as needed Referrals: No Primary/Family,Physician [Primary Care Provider] Sorin Miller MD [Physician, Cardiology] Anmol Nuno MD [Physician, Nephrology] Patient/Caregiver Discharge Instructions Discharge Activity: as per physical therapy Education Materials: Diabetes: Caring for Your Body, ED Chronic Kidney Disease (CKD) Print Language: Faroese Stand Alone Forms: Amanda Award Info., Patient Portal Info Letter Discharge Order Discharge Orders: Discharge (Routine); Ordered 12/28/24 Ordered By: Geoffrey Henley Quality Discharge Quality Measures VTE prophylaxis MD Attestestation MD Attestation I have seen and examined the patient. I was physically present for the miguel portions of the services provided including history, physical exam, diagnosis, treatment plans and orders. I agree with assessment and plan of care as documented by residents. Even though this this note was carefully revised there may still be minor errors in transformer repairer due to voice recognition software. Heather Goff MD
== END 2024-12-28 16:03 | disposition skilled nursing facility (03) | DRG 682 ==
LOC: SERX 20:33 → SERHOLD 12-23 06:12 → S2NX 12-23 06:12 → S3SX 12-27 20:43
PROVIDERS: Nurse Practitioner Family; Admitting Provider Student in an Organized Health Care Education/Training Program; Emergency Provider Family Medicine; Visit Provider Student in an Organized Health Care Education/Training Program
DX: N17.9 Acute kidney failure, unspecified (principal); I50.33 Acute on chronic diastolic (congestive) heart failure; J96.01 Acute respiratory failure with hypoxia; I13.0 Hypertensive heart and chronic kidney disease with heart failure and stage 1 through stage 4 chronic kidney disease, or unspecified chronic kidney disease; I16.1 Hypertensive emergency; E87.1 Hypo-osmolality and hyponatremia; E87.3 Alkalosis; N18.4 Chronic kidney disease, stage 4 (severe); E11.22 Type 2 diabetes mellitus with diabetic chronic kidney disease; E86.1 Hypovolemia; E11.65 Type 2 diabetes mellitus with hyperglycemia; Z79.4 Long term (current) use of insulin; E78.5 Hyperlipidemia, unspecified; R00.1 Bradycardia, unspecified; Z66 Do not resuscitate; Z79.84 Long term (current) use of oral hypoglycemic drugs; Z79.899 Other long term (current) drug therapy; Z87.440 Personal history of urinary (tract) infections
CPT/HCPCS: 36415; 51701; 71045; 76770; 80048; 80053; 81001; 82570; 83036; 83605; 83735; 83880; 84100; 84156; 84443; 84484; 85025; 85610; 85730; 87502; 87634; 87635; 93005; 93225; 93306; 93970; 94640; 96374; 96376; 97162; 99283; A9270; J1644; J1815; J1938; J3475; J3490